=== PATIENT | male | born 1930 | race Caucasian/White ===

== ENCOUNTER → 2018-03-27 | Emergency (ER) | payer MEDICARE, BC ==
[~2018-03-27] VITALS: Ht 180.3 cm; Wt 71.2 kg
[~2018-03-27] MED LIST: ACETAMINOPHEN 500 MG TAB (TYLENOL) PO ONE; ASPI-999 PO; BETA15CR37 TP; DOXY100C2 PO; IRON1TAB4 PO; LEVO500T69 PO; NS IV 1000 ML 1,000 ML IV SCH; RT-ALBUTEROL/IPRATROPIUM 3 ML (DUONEB) VIAL INH ONE
--- OUTSIDE RECORDS SUMMARY | 2018-03-27 02:40 | XMS REPORT | Continuity of Care Document ---
Author Author [facility] Organization [facility] Address Unknown Phone Unavailable Allergies Active Description Code Type Severity Reaction Onset Reported/Identified Relationship to Patient Clinical Status Yes No Known Drug Allergies [id number] Drug Allergy Unknown N/A 07/30/2012 Medications There is no data. Problems Date Dx Coded Attending Type Code Diagnosis Diagnosed By 07/30/2012 MIKE HERNADEZ Ot 550.90 UNILAT INGUINAL HERNIA 07/30/2012 MIKE HERNADEZ Ot 780.4 DIZZINESS AND GIDDINESS 07/30/2012 MIKE HERNADEZ Ot 780.79 OTH MALAISE FATIGUE 07/30/2012 MIKE HERNADEZ Ot 919.4 INSECT BITE NEC 07/30/2012 MIKE HERNADEZ Ot E000.8 OTHER EXTERNAL CAUSE STATUS 07/30/2012 MIKE HERNADEZ Ot E906.4 NONVENOM ARTHROPOD BITE 08/04/2014 STEF PATEL, TAB Rosas Ot 496 08/04/2014 STEF PATEL, TAB [place] Ot 496 08/04/2014 STEF PATEL, TAB [place]as Ot 496 08/04/2014 STEF PATEL, TAB A Ot 496 08/20/2014 STEF PATEL, TAB A Ot 496 09/15/2014 STEF PATEL, TAB A Ot 496 09/15/2014 STEF PATEL, TAB Rosas Ot 496 12/11/2014 STEF PATEL, TAB [place]as Ot 496 06/17/2015 STEF PATEL, TAB Rosas Ot 496 CHR AIRWAY OBSTRUCT NEC 06/17/2015 THA REZA APRN Ot 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 Results Test Result Range Comprehensive Metabolic Panel - 03/01/18 10:00 Albumin 3.9 g/dL 3.6-5.1 ALP 133 U/L 35-130 ALT 9 U/L 6-45 Anion Gap 15 6-14 AST 16 U/L 2-40 BUN 16 mg/dL 5-25 Calcium 9.1 mg/dL 8.3-10.4 Chloride 104 mmol/L 95-114 CO2 23 mEq/L 22-33 Creat 0.93 mg/dL 0.50-1.50 eGFR 77 mL/min/1.73m2 >59 Globulin 3.1 g/dL 2.3-3.5 Glucose 194 mg/dL 70-110 Osmo 289 280-295 Potassium 4.6 mmol/L 3.5-5.3 Sodium 137 mmol/L 134-148 TBil 0.4 mg/dL 0.2-1.2 TP 7.0 g/dL 6.0-8.3 Encounters ACCT No. Visit Date/Time Discharge Status Pt. Type Provider Facility Loc./Unit Complaint [id number] 06/17/2015 13:40:00 06/17/2015 13:56:00 DIS Emergency THA REZA APRN [facility] ER [id number] 07/29/2014 14:31:00 07/29/2014 23:59:59 CLS Outpatient TAB FINCH MD [facility] RAD [id number] 07/30/2012 08:45:00 07/30/2012 11:52:00 DIS Emergency MIKE HERNADEZ [facility] ER [id number] 03/01/2018 10:46:00 03/01/2018 23:59:00 DIS Outpatient TAB FINCH [id number] 07/29/2014 14:32:23 ACT Document Registration
--- OUTSIDE RECORDS SUMMARY | 2018-03-27 02:40 | XMS REPORT | CCD ---
Author Author [facility] Organization [facility] Address [address] [place] [address] Phone Care Team Providers Care Hogshead Builder Name Role Phone PP Unavailable CCM Unavailable Summary Purpose Interface Exchange Insurance Providers Payer name Policy type / Coverage type Covered democrat ID Effective Begin Date Effective End Date WPS Medicare Part B Medicare Part B [id number] Unknown Unknown [facility] Medicare Part B [id number] Unknown Unknown Family history Mother Diagnosis Age At Onset No Family Disease Entered N/A Father Diagnosis Age At Onset No Family Disease Entered N/A Social History Social History Element Codes Description Effective Dates Marital status Unknown elvia 07/28/2014 Number of children Unknown 3 daughter - Jenniffer Hollingsworth - lives in [place], Sunni Lund - [place], Zay Black - lives in [place], [place] 07/28/2014 Employment Unknown Retired associate loan officer with [employer] - 07/28/[address]: 03911695 Current every day smoker 07/28/2014 Number of cigarettes/day Unknown 40 ([employer] Packs) 07/28/[address]: 775799954 Never drinks alcohol 07/28/2014 Allergies, Adverse Reactions, Alerts Substance Reaction Codes Entered Date Inactivated Date Status * NO KNOWN DRUG ALLERGIES Unknown 07/28/2014 No Inactive Date Active Past Medical History Illness Codes Condition Status Onset Date Resolved Date 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, bilateral legs ICD-9: 440.21 ICD-10: I70.213 Active 02/07/2018 Unknown Chronic obstructive pulmonary disease, unspecified ICD-9: 496 ICD-10: J44.9 Active 02/07/2018 Unknown Essential (primary) hypertension ICD-9: 401.1 ICD-10: I10 Active 02/07/2018 Unknown Localized edema ICD-9 : 782.3 ICD-10: R60.0 Active 02/07/2018 Unknown Other forms of dyspnea ICD-9: 786.09 ICD-10: R06.09 Active 02/07/2018 Unknown Type 2 diabetes mellitus with hyperglycemia ICD-9: 250.02 ICD-10: E11.65 Active 02/07/2018 Unknown Encounter for immunization ICD-9: V04.81 ICD-10: Z23 Active 11/17/2014 Unknown Encounter for immunization ICD-9: V03.82 ICD-10: Z23 Active 11/17/2014 Unknown COPD (chronic obstructive pulmonary disease) ICD-9: 496 Active 07/27/2014 Unknown DIZZINESS AND GIDDINESS ICD-9: 780.4 Active 07/27/2014 Unknown DM w/o complication type II, uncontrolled ICD-9: 250.02 Active 07/27/2014 Unknown Problems Condition Codes Effective Dates Condition Status 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, bilateral legs ICD-9: 440.21 ICD-10: I70.213 02/07/2018 Active Chronic obstructive pulmonary disease, unspecified ICD-9: 496 ICD-10: J44.9 02/07/2018 Active Essential (primary) hypertension ICD-9: 401.1 ICD-10: I10 02/07/2018 Active Localized edema ICD-9 : 782.3 ICD-10: R60.0 02/07/2018 Active Other forms of dyspnea ICD-9: 786.09 ICD-10: R06.09 02/07/2018 Active Type 2 diabetes mellitus with hyperglycemia ICD-9: 250.02 ICD-10: E11.65 02/07/2018 Active Encounter for immunization ICD-9: V04.81 ICD-10: Z23 11/17/2014 Active Encounter for immunization ICD-9: V03.82 ICD-10: Z23 11/17/2014 Active COPD (chronic obstructive pulmonary disease) ICD-9: 496 07/27/2014 Active DIZZINESS AND GIDDINESS ICD-9: 780.4 07/27/2014 Active DM w/o complication type II, uncontrolled ICD-9: 250.02 07/27/2014 Active Medications Medication Codes Instructions Start Date Stop Date Status Fill Instructions metformin 500 mg tablet RxNorm: 331638 1/2 Tablet(s) PO BID 12/201808/13/2018 Active metformin 500 mg tablet RxNorm: 743781 1/2 Tablet(s) PO BID 12/201802/14/2018 Inactive Multiple Vitamin oral RxNorm: 08311 oral No Start Date Active aspirin 81 mg tablet RxNorm: 360076 1 Tablet(s) PO daily No Start Date Active Centrum Silver Men oral RxNorm: 70361 oral No Start Date Active Medication Administered No Medication Administered data Immunizations Vaccine Codes Date Status Influenza CVX: 141 11/18/2014 completed Pneumococcal (Adult) CVX: 33 11/18/2014 completed Assessments Condition Codes Effective Dates Other forms of dyspnea ICD-10: R06.09 ICD-9: 786.09 02/07/2018 Chronic obstructive pulmonary disease, unspecified ICD-10: J44.9 ICD-9: 496 02/07/2018 Type 2 diabetes mellitus with hyperglycemia ICD-10: E11.65 ICD-9: 250.02 02/07/2018 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, bilateral legs ICD-10: I70.213 ICD-9: 440.21 02/07/2018 Essential (primary) hypertension ICD-10: I10 ICD-9: 401.1 02/07/2018 Localized edema ICD-10: R60.0 ICD-9: 782.3 02/07/2018 Encounter for immunization ICD-10: Z23 ICD-9: V03.82 11/18/2014 Encounter for immunization ICD-10: Z23 ICD-9: V04.81 11/18/2014 DM w/o complication type II, uncontrolled ICD-9: 250.02 07/28/2014 COPD (chronic obstructive pulmonary disease) ICD-9: 496 07/28/2014 DIZZINESS AND GIDDINESS ICD-9: 780.4 Reason For Visit Reason For Visit Effective Dates Notes cough 02/07/2018 vaccination against influenza 11/18/2014 diabetes mellitus 07/28/2014 Results Observation Observation Code Item Item Code Result Date Tsh Ord6 TSH (3rd IS) 4.06 uIU/mL 02/07/2018 Iron Ord72 Iron 21 ug/dl 02/07/2018 Comp Metabolic Ybr425 NA 135 mEq/L 02/07/2018 Comp Metabolic Nxs865 K 4.2 mEq/L 02/07/2018 Comp Metabolic Ygt352 CL 100 mEq/L 02/07/2018 Comp Metabolic Sth798 CO2 27.0 mEq/L 02/07/2018 Comp Metabolic Htv686 ANION GAP 12 02/07/2018 Comp Metabolic Awi071 GLUCOSE 184 mg/dL 02/07/2018 Comp Metabolic Dfp455 Creat 0.9 mg/dL 02/07/2018 Comp Metabolic Ooz026 eGFR 81 ml/min/1.73m2 02/07/2018 Comp Metabolic Waa676 BUN 24 mg/dL 02/07/2018 Comp Metabolic Xpw697 B/C Ratio 25.5 Ratio 02/07/2018 Comp Metabolic Jmt549 CALCIUM 9.1 mg/dL 02/07/2018 Comp Metabolic Wby839 ALK PHOS 125 U/L 02/07/2018 Comp Metabolic Mmy623 AST(SGOT) 15 U/L 02/07/2018 Comp Metabolic Vcd198 ALT(SGPT) 12 U/L 02/07/2018 Comp Metabolic Frp665 BILI T 0.7 mg/dL 02/07/2018 Comp Metabolic Crp818 ALBUMIN 3.9 g/dL 02/07/2018 Comp Metabolic Wbm619 TPRO 7.6 g/dL 02/07/2018 Comp Metabolic Adq419 GLOB 3.7 g/dL 02/07/2018 Comp Metabolic Obb600 A/G Ratio 1.0 Ratio 02/07/2018 Comp Metabolic Tew056 Osmo 279 mOsmo 02/07/2018 Total Psa Ord10 PSA 1.28 ng/mL 02/07/2018 %Hba1C Ykv651 % HbA1c 08707-1 9.1 % 02/07/2018 %Hba1C Mjd480 Gluc Ave 214 mg/dL 02/07/2018 Cbc With Differential Ord2 WBC 8.94 K/ul 02/07/2018 Cbc With Differential Ord2 RBC 4.03 M/ul 02/07/2018 Cbc With Differential Ord2 HGB 9.0 g/dl 02/07/2018 Cbc With Differential Ord2 HCT 29.9 % 02/07/2018 Cbc With Differential Ord2 Neut% 71.1 % 02/07/2018 Cbc With Differential Ord2 MCV 74.2 fl 02/07/2018 Cbc With Differential Ord2 Lymph% 16.7 % 02/07/2018 Cbc With Differential Ord2 MCH 22.3 pg 02/07/2018 Cbc With Differential Ord2 Yates% 9.1 % 02/07/2018 Cbc With Differential Ord2 MCHC 30.1 pg 02/07/2018 Cbc With Differential Ord2 Eos% 2.7 % 02/07/2018 Cbc With Differential Ord2 PLT 228 K/ul 02/07/2018 Cbc With Differential Ord2 Baso% 0.4 % 02/07/2018 Cbc With Differential Ord2 RDW 16.9 % 02/07/2018 Cbc With Differential Ord2 Neut ABS# 6.36 K/ul 02/07/2018 Cbc With Differential Ord2 Lymph ABS# 1.49 K/ul 02/07/2018 Cbc With Differential Ord2 Yates ABS# 0.8 K/ul 02/07/2018 Cbc With Differential Ord2 Eos ABS# 0.2 K/ul 02/07/2018 Cbc With Differential Ord2 Baso ABS# 0.0 K/ul 02/07/2018 Review of Systems System Result Effective Dates Constitutional No recent illness 2018 Constitutional No chills 02/07/2018 Constitutional fatigue 02/07/2018 Constitutional No fever 02/07/2018 Constitutional No insomnia 02/07/2018 Constitutional No malaise 02/07/2018 Eyes No blindness 02/07/2018 Eyes No vision change 02/07/2018 Ears/Nose/Throat/Neck No dental pain 04/2018 Ears/Nose/Throat/Neck No dizziness 2018 Ears/Nose/Throat/Neck No dysphagia 2018 Ears/Nose/Throat/Neck No headache 2018 Ears/Nose/Throat/Neck No hearing loss 04/2018 Ears/Nose/Throat/Neck No nasal allergies 02/07/2018 Ears/Nose/Throat/Neck No sore throat 04/2018 Ears/Nose/Throat/Neck No postnasal drip 02/07/2018 Ears/Nose/Throat/Neck No sinus congestion 02/07/2018 Cardiovascular No chest pain/pressure 04/2018 Cardiovascular No dyspnea 02/07/2018 Cardiovascular No edema 02/07/2018 Cardiovascular No exercise intolerance Cardiovascular No fatigue 02/07/2018 Cardiovascular No near-syncope/dizziness 02/07/2018 Respiratory No chest tightness 2018 Respiratory cigarette smoking 02/07/2018 Respiratory No cough 02/07/2018 Respiratory No dyspnea 02/07/2018 Respiratory No pedal edema 02/07/2018 Gastrointestinal No abdominal pain 2018 Gastrointestinal No constipation 2018 Gastrointestinal No diarrhea 02/07/2018 Gastrointestinal No gastroesophageal reflux 02/07/2018 Gastrointestinal No nausea 02/07/2018 Gastrointestinal No vomiting 02/07/2018 Genitourinary/Nephrology No dysuria 02/07 Genitourinary/Nephrology No nocturia 04/2018 Genitourinary/Nephrology No urinary incontinence 02/07/2018 Musculoskeletal No stiffness 02/07/2018 Musculoskeletal No swelling 02/07/2018 Musculoskeletal muscle weakness 2018 Musculoskeletal No myalgias 02/07/2018 Dermatologic No rash 02/07/2018 Neurologic dizziness 02/07/2018 Neurologic No headache 02/07/2018 Neurologic No neck pain 02/07/2018 Neurologic No syncope 02/07/2018 Psychiatric No anxiety 02/07/2018 Psychiatric No depression 02/07/2018 Endocrine diabetes mellitus type 2 2018 Dermatologic sores 02/07/2018 Cardiovascular No dyspnea 07/28/2014 Cardiovascular No edema 07/28/2014 Cardiovascular No fatigue 07/28/2014 Respiratory cigarette smoking 07/28/2014 Neurologic dizziness 07/28/2014 Constitutional No recent illness 2014 Constitutional No chills 07/28/2014 Constitutional fatigue 07/28/2014 Constitutional No fever 07/28/2014 Constitutional No insomnia 07/28/2014 Constitutional No malaise 07/28/2014 Eyes No blindness 07/28/2014 Eyes No vision change 07/28/2014 Ears/Nose/Throat/Neck No dental pain Ears/Nose/Throat/Neck No dizziness 2014 Ears/Nose/Throat/Neck No dysphagia 2014 Ears/Nose/Throat/Neck No headache 2014 Ears/Nose/Throat/Neck No hearing loss Ears/Nose/Throat/Neck No nasal allergies 07/28/2014 Ears/Nose/Throat/Neck No sore throat Ears/Nose/Throat/Neck No postnasal drip 07/28/2014 Ears/Nose/Throat/Neck No sinus congestion 07/28/2014 Cardiovascular No chest pain/pressure Cardiovascular No exercise intolerance Cardiovascular No near-syncope/dizziness 07/28/2014 Respiratory No chest tightness 2014 Respiratory No cough 07/28/2014 Respiratory No dyspnea 07/28/2014 Respiratory No pedal edema 07/28/2014 Gastrointestinal No abdominal pain 2014 Gastrointestinal No constipation 2014 Gastrointestinal No diarrhea 07/28/2014 Gastrointestinal No gastroesophageal reflux 07/28/2014 Gastrointestinal No nausea 07/28/2014 Gastrointestinal No vomiting 07/28/2014 Genitourinary/Nephrology No dysuria 07/28 Genitourinary/Nephrology No nocturia Genitourinary/Nephrology No urinary incontinence 07/28/2014 Musculoskeletal No stiffness 07/28/2014 Musculoskeletal No swelling 07/28/2014 Musculoskeletal No muscle weakness 2014 Musculoskeletal No myalgias 07/28/2014 Dermatologic No rash 07/28/2014 Dermatologic No sores 07/28/2014 Dermatologic No scar 07/28/2014 Neurologic No headache 07/28/2014 Neurologic No neck pain 07/28/2014 Neurologic No syncope 07/28/2014 Psychiatric No anxiety 07/28/2014 Psychiatric No depression 07/28/2014 Endocrine diabetes mellitus type 2 2014 Physical Exam Exam Name System Name Item Name Status Result Effective Dates Notes Full Exam - General 1994 Constitutional general appearance Development: well developed 02/07/2018 None Full Exam - General 1994 Constitutional general appearance Development: appears stated age 0102/07/2018 None Full Exam - General 1994 Constitutional general appearance Hygiene/Attention to Grooming: good hygiene 02/07/2018 None Full Exam - General 1994 Eyes conjunctiva /eyelids Overall: cornea clear 02/07/2018 None Full Exam - General 1994 Eyes conjunctiva /eyelids Overall: eyelids normal 02/07/2018 None Full Exam - General 1994 Eyes pupils and irises Overall: pupils equal, round, reactive to light and accomodation 02/07/2018 None Full Exam - General 1994 Ears/Nose/Throat otoscopic exam Overall: external auditory canals clear 02/07/2018 None Full Exam - General 1994 Ears/Nose/Throat otoscopic exam Overall: tympanic membranes clear 02/07/2018 None Full Exam - General 1994 Ears/Nose/Throat lips/teeth/gingiva Overall: benign lips 02/07/2018 None Full Exam - General 1994 Ears/Nose/Throat lips/teeth/gingiva Overall: normal dentition 02/07/2018 None Full Exam - General 1994 Ears/Nose/Throat oral cavity/pharynx/larynx Overall: oral mucosa clear 02/07/2018 None Full Exam - General 1994 Ears/Nose/Throat oral cavity/pharynx/larynx Overall: oropharyngeal mucosa clear 02/07/2018 None Full Exam - General 1994 Ears/Nose/Throat oral cavity/pharynx/larynx Overall: hypopharynx benign 02/07/2018 None Full Exam - General 1994 Ears/Nose/Throat oral cavity/pharynx/larynx Overall: no masses 02/07/2018 None Full Exam - General 1994 Respiratory auscultation Overall: breath sounds clear bilaterally 02/07/2018 None Full Exam - General 1994 Respiratory respiratory effort/rhythm Overall: no retractions 02/07/2018 None Full Exam - General 1994 Respiratory respiratory effort/rhythm Overall: normal rate 02/07/2018 None Full Exam - General 1994 Cardiovascular extremities Overall: no clubbing 02/07/2018 None Full Exam - General 1994 Cardiovascular auscultation of heart Overall: regular rate 02/07/2018 None Full Exam - General 1994 Cardiovascular auscultation of heart Overall: normal heart sounds 02/07/2018 None Full Exam - General 1994 Abdomen abdominal exam Overall: no tenderness 02/07/2018 None Full Exam - General 1994 Abdomen abdominal exam Overall: normal bowel sounds 02/07/2018 None Full Exam - General 1994 Lymphatic neck nodes Overall: anterior cervical chain benign 02/07/2018 None Full Exam - General 1994 Lymphatic neck nodes Overall: posterior cervical chain benign 02/07/2018 None Full Exam - General 1994 Musculoskeletal spine, ribs and pelvis Overall: spine benign 02/07/2018 None Full Exam - General 1994 Musculoskeletal spine, ribs and pelvis Overall: sacroiliac joint benign 02/07/2018 None Full Exam - General 1994 Musculoskeletal spine, ribs and pelvis Overall: good posture 02/07/2018 None Full Exam - General 1994 Musculoskeletal head and neck Overall: head atraumatic 02/07/2018 None Full Exam - General 1994 Musculoskeletal head and neck Overall: cervical spine benign 02/07/2018 None Full Exam - General 1994 Neurologic deep tendon reflexes Overall: deep tendon reflexes intact 02/07/2018 None Full Exam - General 1994 Neurologic cranial nerves Overall: crainial nerves 2 - 12 grossly intact 02/07/2018 None Full Exam - General 1994 Psychiatric orientation/consciousness Overall: oriented to person, place and time 02/07/2018 None Full Exam - General 1994 Psychiatric mood and affect Overall: normal mood and affect 02/07/2018 None Full Exam - General 1994 Integument inspection of skin Location: face 02/07/2018 left cheek irritation Full Exam - General 1994 Eyes conjunctiva /eyelids Conjunctiva: pale 02/07/2018 None Full Exam - General 1994 Constitutional general appearance Development: well developed 07/28/2014 None Full Exam - General 1994 Constitutional general appearance Development: appears stated age 0607/28/2014 None Full Exam - General 1994 Constitutional general appearance Hygiene/Attention to Grooming: good hygiene 07/28/2014 None Full Exam - General 1994 Eyes conjunctiva /eyelids Overall: conjunctiva clear 07/28/2014 None Full Exam - General 1994 Eyes conjunctiva /eyelids Overall: cornea clear 07/28/2014 None Full Exam - General 1994 Eyes conjunctiva /eyelids Overall: eyelids normal 07/28/2014 None Full Exam - General 1994 Eyes pupils and irises Overall: pupils equal, round, reactive to light and accomodation 07/28/2014 None Full Exam - General 1994 Ears/Nose/Throat otoscopic exam Overall: external auditory canals clear 07/28/2014 None Full Exam - General 1994 Ears/Nose/Throat otoscopic exam Overall: tympanic membranes clear 07/28/2014 None Full Exam - General 1994 Ears/Nose/Throat lips/teeth/gingiva Overall: benign lips 07/28/2014 None Full Exam - General 1994 Ears/Nose/Throat lips/teeth/gingiva Overall: normal dentition 07/28/2014 None Full Exam - General 1994 Ears/Nose/Throat oral cavity/pharynx/larynx Overall: oral mucosa clear 07/28/2014 None Full Exam - General 1994 Ears/Nose/Throat oral cavity/pharynx/larynx Overall: oropharyngeal mucosa clear 07/28/2014 None Full Exam - General 1994 Ears/Nose/Throat oral cavity/pharynx/larynx Overall: hypopharynx benign 07/28/2014 None Full Exam - General 1994 Ears/Nose/Throat oral cavity/pharynx/larynx Overall: no masses 07/28/2014 None Full Exam - General 1994 Respiratory auscultation Overall: breath sounds clear bilaterally 07/28/2014 None Full Exam - General 1994 Respiratory respiratory effort/rhythm Overall: no retractions 07/28/2014 None Full Exam - General 1994 Respiratory respiratory effort/rhythm Overall: normal rate 07/28/2014 None Full Exam - General 1994 Cardiovascular extremities Overall: no clubbing 07/28/2014 None Full Exam - General 1994 Cardiovascular auscultation of heart Overall: regular rate 07/28/2014 None Full Exam - General 1994 Cardiovascular auscultation of heart Overall: normal heart sounds 07/28/2014 None Full Exam - General 1994 Abdomen abdominal exam Overall: no tenderness 07/28/2014 None Full Exam - General 1994 Abdomen abdominal exam Overall: normal bowel sounds 07/28/2014 None Full Exam - General 1994 Lymphatic neck nodes Overall: anterior cervical chain benign 07/28/2014 None Full Exam - General 1994 Lymphatic neck nodes Overall: posterior cervical chain benign 07/28/2014 None Full Exam - General 1994 Musculoskeletal spine, ribs and pelvis Overall: spine benign 07/28/2014 None Full Exam - General 1994 Musculoskeletal spine, ribs and pelvis Overall: sacroiliac joint benign 07/28/2014 None Full Exam - General 1994 Musculoskeletal spine, ribs and pelvis Overall: good posture 07/28/2014 None Full Exam - General 1994 Musculoskeletal head and neck Overall: head atraumatic 07/28/2014 None Full Exam - General 1994 Musculoskeletal head and neck Overall: cervical spine benign 07/28/2014 None Full Exam - General 1994 Integument inspection of skin Overall: few scattered moles, no gross abnormalities 07/28/2014 None Full Exam - General 1994 Neurologic deep tendon reflexes Overall: deep tendon reflexes intact 07/28/2014 None Full Exam - General 1994 Neurologic cranial nerves Overall: crainial nerves 2 - 12 grossly intact 07/28/2014 None Full Exam - General 1994 Psychiatric orientation/consciousness Overall: oriented to person, place and time 07/28/2014 None Full Exam - General 1994 Psychiatric mood and affect Overall: normal mood and affect 07/28/2014 None Procedures Procedure Codes Date ADMIN INFLUENZA VIRUS VAC CPT-4: G0008 11/18/2014 FLU VACC 4 MARTELL 3 YRS PLUS IM Formatting Model/CDA Sections, Assigned to SNOMED CT: 27445245 CPT-4: 79674Zyiyvbb 11/18/2014 ADMIN PNEUMOCOCCAL VACCINE SNOMED CT: 41655147 CPT-4: G0009 11/18/2014 Pneumococcal Polysaccharide Vaccine, 23-Valent, Ad Formatting Model/CDA Sections, Assigned to CPT-4: 50322Pznbmtk 11/18/2014 Vital Signs Date Vital 02/07/2018 Blood Pressure 1: 150/80 Code : 8480-6 Blood Pressure 2: 128/84 Code: 8480-6 BMI: 21.8 Code: 00582-0 Heart Rate 1: 81 bpm Height: 6' SpO2: 90% Weight: 161 lbs 07/28/2014 Blood Pressure 1: 136/78 Code : 8480-6 BMI: 21.0 Code : 13473-2 Heart Rate 1 : 72 bpm Height: 6' Weight: 155 lbs Functional Status No Functional Status data History of Present Illness Symptom Name Status Result Effective Date Notes Quality intermittent 02/07/2018 None Location in the throat 02/07/2018 None Limitation on Activities does not limit activities 02/07/2018 None Frequency of Episodes daily 02/07/2018 None Pertinent Findings Denies chest discomfort 02/07/2018 None Pertinent Findings Denies fever 02/07/2018 None Quality intermittent 02/07/2018 None Onset and Resolution ongoing 02/07/2018 None Pertinent Findings Denies muscle tenderness 02/07/2018 None Quality bilateral 04/2018 legs Onset and Resolution ongoing 02/07/2018 None Pertinent Findings bladder dysfunction 02/07/2018 None Pertinent Findings gait abnormality 02/07/2018 uses a cane Pertinent Findings Denies respiratory difficulties 02/07/2018 None Pertinent Findings skin changes 02/07/2018 sores to bilateral upper arms he reports from tick bites diabetes mellitus Severity mild 07/28/2014 None diabetes mellitus Test results HgbA1c level 7.7 07/28/2014 on 05/11/14 diabetes mellitus Glucose monitoring does not test 07/28/2014 None diabetes mellitus Exercise minimal exercise 07/28/2014 patient states he walks and works around his [place] diabetes mellitus Pertinent Findings dizziness 07/28/2014 None dizziness Onset and Resolution ongoing 07/28/2014 None dizziness Onset of Symptom 2 years ago 07/28/2014 None dizziness Quality intermittent 07/28/2014 None dizziness Limitation on Activities does not limit activities 07/28/2014 None fatigue Onset of Symptom 2 years ago 07/28/2014 None fatigue Onset and Resolution ongoing 07/28/2014 None diabetes mellitus Pertinent Findings Denies dyspnea 07/28/2014 None diabetes mellitus Onset of Symptom onset as an adult 07/28/2014 None Advance Directives No Advance Directive data Encounters Encounter Performer Location Codes Date [id number]) [id number] EST. 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 Pt has been encouraged to exercise daily. The pt has been advised to call the office if there are any acute concerns about change in blood pressure readings at home. Diabetes Mellitus - not optimally controlled - discussed with patient - will check labs. Generalized weakness and gait instability - check labs as well as start therapy through [facility] (powering [facility]). Edema - elevate legs while seated. Dyspnea on exertion -and COPD- monitored pt - he has drop in oxygen down to 72% - with short ambulation - rx for oxgyen sent to [facility]. PVD - continue with aspirin. 02/07/2018 [facility]ment[id number] ([facility] min[facility] Moderate 02/07/2018 Patient Education: Patient Medication Summary Completed 02/07/2018 Patient Education: Diabetes Completed 02/07/2018 Appointment: Nurse Visit 11/18/2014 Patient Education: Patient Medication Summary Completed 11/18/2014 Visit Plan: Diabetes Mellitus - diet controlled - per patient reports. I have recommended for the patient to have follow up labs prior to the next office visit. The patient has been instructed to continue with current medications as previously directed, continue with regular FSBS monitoring to assure continued control of diabetes. Pt to call for any acute concerns, complaints, or if the blood glucose readings are starting to become less controlled. COPD - chronic problem for this patient. We have reviewed chronic treatment strategy, symptom control, and plans for acute exacerbation. No changes today to the current treatment plan as the patient is stable, monitor for acute changes. 07/28/2014 Appointment: [phone] [facility] [place] [place] New Patient 07/28/2014 Patient Education: Patient Medication Summary Completed 07/28/2014 Care Plan: COMPLETE CBC AUTOMATED LOINC : 40678-6 Ordered 07/28/2014 Instructions Comment . Hypertension - well controlled - continue with current medications, continue with no added salt diet. Pt has been encouraged to exercise daily. The pt has been advised to call the office if there are any acute concerns about change in blood pressure readings at home. Diabetes Mellitus - not optimally controlled - discussed with patient - will check labs. Generalized weakness and gait instability - check labs as well as start therapy through [facility] (powering [facility]). Edema - elevate legs while seated. Dyspnea on exertion -and COPD- monitored pt - he has drop in oxygen down to 72 % - with short ambulation - rx for oxgyen sent to [facility]. PVD - continue with aspirin. . Diabetes Mellitus - diet controlled - per patient reports. I have recommended for the patient to have follow up labs prior to the next office visit. The patient has been instructed to continue with current medications as previously directed, continue with regular FSBS monitoring to assure continued control of diabetes. Pt to call for any acute concerns, complaints, or if the blood glucose readings are starting to become less controlled. COPD - chronic problem for this patient. We have reviewed chronic treatment strategy, symptom control, and plans for acute exacerbation. No changes today to the current treatment plan as the patient is stable, monitor for acute changes.
[2018-03-27 03:00] LABS: BASOPHILS % (AUTO) 0 % (0-10); EOSINOPHILS % (AUTO) 0 % (0-10); HEMATOCRIT 34 % (40-54); HEMOGLOBIN 10.7 G/DL (13.3-17.7); LYMPHOCYTES # (AUTO) 0.9 X 10^3 (1.0-4.0); LYMPHOCYTES % (AUTO) 13 % (12-44); MEAN CORPUSCULAR HEMOGLOBIN 23 PG (25-34); MEAN CORPUSCULAR HGB CONC 32 G/DL (32-36); MEAN CORPUSCULAR VOLUME 74 FL (80-99); MEAN PLATELET VOLUME 10.6 FL (7.4-10.4); MONOCYTES # (AUTO) 0.7 X 10^3 (0.0-1.0); MONOCYTES % (AUTO) 11 % (0-12); NEUTROPHILS # (AUTO) 5.2 X 10^3 (1.8-7.8); NEUTROPHILS % (AUTO) 76 % (42-75); PLATELET COUNT 172 10^3/uL (130-400); RED CELL DISTRIBUTION WIDTH 21.6 % (10.0-14.5); WHITE BLOOD COUNT 6.8 10^3/uL (4.3-11.0)
[2018-03-27 03:05] LABS: INR 1.2 (0.8-1.4); PROTHROMBIN TIME PATIENT 15.2 SEC (12.2-14.7)
[2018-03-27 03:11] LABS: ALANINE AMINOTRANSFERASE 13 U/L (0-55); ALKALINE PHOSPHATASE 125 U/L (40-136); BUN/CREATININE RATIO 26; CALCIUM 9.5 MG/DL (8.5-10.1); CARBON DIOXIDE 18 MMOL/L (21-32); CHLORIDE 102 MMOL/L (98-107); CREATININE SERUM 1.08 MG/DL (0.60-1.30); GFR ESTIMATED > 60; GLUCOSE 244 MG/DL (70-105); POTASSIUM 4.2 MMOL/L (3.6-5.0); SODIUM 134 MMOL/L (135-145); TOTAL PROTEIN 7.8 GM/DL (6.4-8.2)
--- NOTE | 2018-03-27 05:02 | ED General ---
General Chief Complaint: Respiratory Problems Stated Complaint: FALL Nursing Triage Note: PT REPORTS TRYING TO GET OUT OF HIS CHAIR AT HOME AND HIS LEGS WOULD NOT SUPPORT HIS WEIGHT, STATES HE SLUMPED TO THE CARPETED FLOOR, DEN IES STRIKING HIS HEAD, DENIES LOC. PT REPORTS CHILLS THAT BEGAN YESTERDAY AND INCREASED SLEEPINESS ALL DAY TODAY Nursing Sepsis Screen: Possible Severe Sepsis Risk Source of Information: Patient, EMS, Family Exam Limitations: No Limitations History of Present Illness Date Seen by Provider: Mar 27, 2018 Time Seen by Provider: 02:36 Initial Comments This 87-year-old gentleman presents to the emergency room via EMS after having a fall at home. Patient was unable to get up out of his chair and lowered himself to the floor. He laid on the floor for about an hour and a half before he was able to contact family. Patient reports he started feeling ill with excessive tiredness about 5 days ago. He is febrile on arrival, hypoxic, and tachycardic. Oxygen saturation is 83 percent on room air. He is dyspneic and has a wet cough. Patient occasionally uses oxygen at 2 L by nasal cannula, mostly at night. Patient denies any injury from his fall. He reports a general decline in his functionality over the last few months resulting in decrease in quality of life. He also notes his about 3 years ago. Patient expresses a desire for DNR status and is not sure he wants aggressive care for treatment of his present condition. I discussed the situation with his daughter and son-in-law. They agree that his quality of life has been diminishing recently. Patient does have some pain toward the center of his back that is ill-defined and hard to localize. Allergies and Home Medications Allergies Coded Allergies: No Known Drug Allergies (Unverified , 07/30/12) Home Medications Betamethasone/Propylene Glyc 15 Gm Cream..g., 1 GM TP BID Apply topically to forearms twice daily for 5 days Prescribed by: THA REZA on 06/17/15 0598 Patient Home Medication List Home Medication List Reviewed: Yes Review of Systems Review of Systems Constitutional: see HPI EENTM: no symptoms reported Respiratory: see HPI Cardiovascular: see HPI Gastrointestinal: other (large abdominal hernia) Genitourinary: no symptoms reported Musculoskeletal: no symptoms reported Skin: no symptoms reported Psychiatric/Neurological: No Symptoms Reported Hematologic/Lymphatic: No Symptoms Reported Immunological/Allergic: no symptoms reported Past Vjptdcx-Tndibs-Yibntf Hx Past Med/Social Hx: Reviewed and Corrections made Patient Social History Recent Foreign Travel: No Contact w/Someone Who Travel: No Recent Infectious Disease Expo: No Seasonal Allergies Seasonal Allergies: No Past Medical History Surgeries: Yes (left ankle surgery) Respiratory: Yes (nocturnal hypoxia) Cardiac: No Neurological: No Genitourinary: No Gastrointestinal: Yes (lg hernia in the scotum, states never bothered him, increases with lifting) Musculoskeletal: No Endocrine: No HEENT: No Cancer: No Psychosocial: No Integumentary: No Family Medical History No Pertinent Family Hx Physical Exam-Suspected Sepsis Physical Exam Vital Signs Vital Signs - First Documented 03/27/18 03/27/18 02:35 02:45 Temp 101.3 Pulse 112 Resp 22 B/P (MAP) 135/78 (97) Pulse Ox 83 O2 Delivery Room Air O2 Flow Rate 10.00 Capillary Refill : Less Than 3 Seconds Blood Pressure Mean: 87 Height, Weight, BMI Height: 5'11.00" Weight: 157lbs. oz. 71.873585kx; BMI Method:Stated General Appearance: WD/WN, Mild Distress (respiratory) HEENT: PERRL/EOMI, Normal ENT Inspection Neck: Normal Inspection Respiratory: No Accessory Muscle Use, No Respiratory Distress, Crackles ( subtle lung bases), Decreased Breath Sounds, Other (tachypnea) Cardiovascular: No Edema, No Murmur, Tachycardia Gastrointestinal: Normal Bowel Sounds, Soft, Other (large lower abdominal and scrotal hernia, nontender.) Back: Normal Inspection Extremity: Normal Inspection, Pedal Edema (mild pitting lower extremity edema) Neurologic/Psychiatric: Alert, Oriented x3, No Motor/Sensory Deficits, Normal Mood/Affect, health claims examiner II-XII Norm as Tested Skin: normal color, warm/dry Focused Exam Lactate Level 03/27/18 02:40: Lactic Acid Level 2.62*H Lactic Acid Level Laboratory Tests Test 03/27/18 02:40 Lactic Acid Level 2.62 MMOL/L (0.50-2.00) *H Progress/Results/Core Measures Suspected Sepsis Recent Fever Within 48 Hours: Yes Infection Criteria Present: Suspected New Infection New/Unexplained Altered Menta: No Sepsis Screen: Possible Severe Sepsis Risk SIRS Temperature:100.3 Pulse: 111 Respiratory Rate: 22 Laboratory Tests 03/27/18 02:40: White Blood Count 6.8 Blood Pressure 126 /68 Mean: 87 03/27/18 02:40: Lactic Acid Level 2.62*H Laboratory Tests 03/27/18 02:40: Creatinine 1.08, INR Comment 1.2, Platelet Count 172, Total Bilirubin 1.0 Results/Orders Lab Results Laboratory Tests Test 03/27/18 02:40 Range/Units White Blood Count 6.8 4.3-11.0 10^3/uL Red Blood Count 4.57 4.35-5.85 10^6/uL Hemoglobin 10.7 L 13.3-17.7 G/DL Hematocrit 34 L 40-54 % Mean Corpuscular Volume 74 L 80-99 FL Mean Corpuscular Hemoglobin 23 L 25-34 PG Mean Corpuscular Hemoglobin Concent 32 32-36 G/DL Red Cell Distribution Width 21.6 H 10.0-14.5 % Platelet Count 172 130-400 10^3/uL Mean Platelet Volume 10.6 H 7.4-10.4 FL Neutrophils (%) (Auto) 76 H 42-75 % Lymphocytes (%) (Auto) 13 12-44 % Monocytes (%) (Auto) 11 0-12 % Eosinophils (%) (Auto) 0 0-10 % Basophils (%) (Auto) 0 0-10 % Neutrophils # (Auto) 5.2 1.8-7.8 X 10^3 Lymphocytes # (Auto) 0.9 L 1.0-4.0 X 10^3 Monocytes # (Auto) 0.7 0.0-1.0 X 10^3 Eosinophils # (Auto) 0.0 0.0-0.3 10^3/uL Basophils # (Auto) 0.0 0.0-0.1 10^3/uL Prothrombin Time 15.2 H 12.2-14.7 SEC INR Comment 1.2 0.8-1.4 Activated Partial Thromboplast Time 33 24-35 SEC D-Dimer 2.93 H 0.00-0.49 UG/ML Sodium Level 134 L 135-145 MMOL/L Potassium Level 4.2 3.6-5.0 MMOL/L Chloride Level 102 98-107 MMOL/L Carbon Dioxide Level 18 L 21-32 MMOL/L Anion Gap 14 5-14 MMOL/L Blood Urea Nitrogen 28 H 7-18 MG/DL Creatinine 1.08 0.60-1.30 MG/DL Estimat Glomerular Filtration Rate > 60 BUN/Creatinine Ratio 26 Glucose Level 244 H 70-105 MG/DL Lactic Acid Level 2.62 *H 0.50-2.00 MMOL/L Calcium Level 9.5 8.5-10.1 MG/DL Corrected Calcium 9.5 8.5-10.1 MG/DL Total Bilirubin 1.0 0.1-1.0 MG/DL Aspartate Amino Transf (AST/SGOT) 20 5-34 U/L Alanine Aminotransferase (ALT/SGPT) 13 0-55 U/L Alkaline Phosphatase 125 40-136 U/L Troponin I < 0.028 <0.028 NG/ML C-Reactive Protein High Sensitivity 14.64 H 0.00-0.50 MG/DL B-Type Natriuretic Peptide 133.1 H <100.0 PG/ML Total Protein 7.8 6.4-8.2 GM/DL Albumin 4.0 3.2-4.5 GM/DL Micro Results Microbiology 03/27/18 Influenza Types A,B Antigen (QUENTIN) - Final, Complete My Orders Orders - LINH MILLER MD Cbc With Automated Diff (03/27/18 02:52) Comprehensive Metabolic Panel (03/27/18 02:52) Blood Culture (03/27/18 02:52) Sputum Culture (03/27/18 02:52) Urinalysis (03/27/18 02:52) Urine Culture (03/27/18 02:52) Protime With Inr (03/27/18 02:52) Partial Thromboplastin Time (03/27/18 02:52) Chest 1 View, Ap/Pa Only (03/27/18 02:52) Saline Lock/Iv-Start (03/27/18 02:52) Saline Lock/Iv-Start (03/27/18 02:52) Vital Signs Adult Sepsis Patie Q15M (03/27/18 02:52) O2 (03/27/18 02:52) Remove Rings In Anticipation O (03/27/18 02:52) Lactic Acid Analyzer (03/27/18 02:52) Influenza A And B Antigens (03/27/18 02:52) Ns Iv 1000 Ml (Sodium Chloride 0.9%) (03/27/18 02:52) Albuterol/Ipra Inhalation Soln (Duoneb I (03/27/18 03:00) Svn Small Volume Nebulizer (03/27/18 02:52) Acetaminophen Tablet (Tylenol Tablet) (03/27/18 03:00) BNP (03/27/18 02:57) Hs C Reactive Protein (03/27/18 03:39) Fibrin Degradation Products (03/27/18 03:39) Troponin I (03/27/18 03:39) Medications Given in ED Current Medications Medications Dose Ordered Sig/Rachel Route Start Time Stop Time Status Last Admin Dose Admin Acetaminophen 1,000 mg ONCE ONCE PO 03/27/18 03:00 03/27/18 03:01 DC 03/27/18 03:10 1,000 MG Albuterol/ Ipratropium 3 ml ONCE ONCE INH 03/27/18 03:00 03/27/18 03:01 DC 03/27/18 02:49 3 ML Vital Signs/I&O 03/27/18 03/27/18 03/27/18 03/27/18 02:35 02:45 02:49 03:10 Temp 101.3 101.3 Pulse 112 Resp 22 B/P (MAP) 135/78 (97) Pulse Ox 83 95 91 O2 Delivery Room Air OxyMask OxyMask O2 Flow Rate 10.00 10.00 03/27/18 03:37 Temp 100.3 Pulse 111 Resp 22 B/P (MAP) 126/68 Pulse Ox 95 O2 Delivery OxyMask O2 Flow Rate 10.00 Capillary Refill : Less Than 3 Seconds Blood Pressure Mean: 87 Progress Note : Progress Note Patient was placed on an Oxymask at 10 L/m which successfully resuscitated his oxygen saturation to the mid 90s. Pneumonia was suspected on chest x-ray. Influenza screen was negative. Patient received a DuoNeb treatment in route and another DuoNeb treatment in the ER. He remained slightly dyspneic. A liter of IV fluids was infused. Patient expressed no interest in aggressively treating his pneumonia or respiratory failure. He did not want to be transferred to a higher level of care either. Options were discussed with the patient and his family. Because of his age and overall declining condition, he elected to pursue comfort care. 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 [facility] was on admission diversion at the time of admission. Arrangements were made with Dr. Chase to transfer to [place] for comfort care. Hospice at home was considered, but family support would be difficult to arrange in the home. Comfort care in the hospital was therefore preferred. Patient received Tylenol for his fever. No antibiotics were administered due to patient's election for comfort care only. Diagnostic Imaging Diagonstic Imaging: Xray Plain Films/CT/US/NM/MRI: chest Comments Chest x-ray viewed by me. Report not yet available. There is suggestion of perihilar right lower lobe infiltrate and left lower lobe infiltrate. Departure Impression Primary Impression: Respiratory failure Qualified Codes: J96.21 - Acute and chronic respiratory failure with hypoxia Additional Impressions: Right lower lobe pneumonia Qualified Codes: J18.1 - Lobar pneumonia, unspecified organism Sepsis Qualified Codes: A41.9 - Sepsis, unspecified organism Disposition: 01 HOME, SELF-CARE Condition: Improved Transfer Time Spoke to Accepting Phy: 04:30 Transfer Progress Notes Case discussed with Dr. Chase who accepts the patient in transfer to [facility] on comfort care. Transfer Time: 05:40 Transfer Facility: [facility] Method of Transfer: EMS Departure-Patient Inst. Referrals: TAB FINCH MD (PCP/Family) Primary Care Physician LINH MILLER MD Mar 27, 2018 05:02
[2018-03-27 05:58] VITALS: BP 106/72
--- NOTE | 2018-03-27 06:21 | Diagnostic Imaging Report ---
INDICATION: Cough and congestion COMPARISON: 07/29/2014 FINDINGS: Single view of the chest demonstrates new infiltrates in both lung bases with small effusion left costophrenic angle. The heart is prominent without pulmonary edema. There is no pneumothorax. The osseous structures normal. IMPRESSION: New basilar infiltrates with small effusion left base. Followup recommended. Dictated by: Dictated on workstation # [id number]
== END | disposition home or self-care (01) ==
LOC: EDUNIT# 02:35 → ER 02:36
DX: J96.90 Respiratory failure, unspecified, unspecified whether with hypoxia or hypercapnia (principal); J18.1 Lobar pneumonia, unspecified organism; A41.9 Sepsis, unspecified organism; Z99.81 Dependence on supplemental oxygen; Z79.51 Long term (current) use of inhaled steroids; Z87.19 Personal history of other diseases of the digestive system
CPT/HCPCS: 36415; 71045; 80053; 83605; 83880; 84484; 85025; 85379; 85610; 85730; 86141; 87040; 87804; 94640

== ENCOUNTER 2020-01-03 07:46 | Inpatient (IN) | payer MEDICARE, BC ==
[~2020-01-03] VITALS: Ht 182.1 cm; Wt 70.4 kg
[~2020-01-03 07:46] MED LIST changes: -ACETAMINOPHEN 500 MG TAB (TYLENOL) PO ONE; +BETA15CR14 TP; -BETA15CR37 TP; -NS IV 1000 ML 1,000 ML IV SCH; -RT-ALBUTEROL/IPRATROPIUM 3 ML (DUONEB) VIAL INH ONE
[2020-01-03] MEDS ORDERED: ACETAMINOPHEN 500 MG TAB (TYLENOL) PO PRN (08:15)
[2020-01-03 08:26] LABS: BASOPHILS # (AUTO) 0.1 10^3/uL (0.0-0.1); BASOPHILS % (AUTO) 1 % (0-10); MEAN CORPUSCULAR HEMOGLOBIN 30 pg (25-34)
[2020-01-03 08:28] LABS: EOSINOPHILS # (AUTO) 0.1 10^3/uL (0.0-0.3); EOSINOPHILS % (AUTO) 1 % (0-10); HEMATOCRIT 40 % (40-54); LYMPHOCYTES # (AUTO) 0.7 10^3/uL (1.0-4.0); LYMPHOCYTES % (AUTO) 10 % (12-44); MEAN CORPUSCULAR HGB CONC 33 g/dL (32-36); MEAN CORPUSCULAR VOLUME 94 fL (80-99); MEAN PLATELET VOLUME 10.3 fL (9.0-12.2); MONOCYTES # (AUTO) 0.6 10^3/uL (0.0-1.0); MONOCYTES % (AUTO) 10 % (0-12); NEUTROPHILS # (AUTO) 4.9 10^3/uL (1.8-7.8); NEUTROPHILS % (AUTO) 77 % (42-75); PLATELET COUNT 130 10^3/uL (130-400); WHITE BLOOD COUNT 6.3 10^3/uL (4.3-11.0)
[2020-01-03 08:38] LABS: BILIRUBIN,URINE NEGATIVE (NEGATIVE); CLARITY,URINE CLEAR; COLOR,URINE YELLOW; GLUCOSE, URINE (UA) TRACE (NEGATIVE); KETONES,URINE NEGATIVE (NEGATIVE); LEUKOCYTE ESTERASE ,URINE NEGATIVE (NEGATIVE); NITRITE,URINE NEGATIVE (NEGATIVE); PROTEIN,URINE NEGATIVE (NEGATIVE)
[2020-01-03 08:38] LABS: ALBUMIN 3.7 GM/DL (3.2-4.5); CHLORIDE 101 MMOL/L (98-107); POTASSIUM 4.2 MMOL/L (3.6-5.0); SODIUM 134 MMOL/L (135-145)
[2020-01-03 08:39] LABS: CALCIUM 8.8 MG/DL (8.5-10.1)
[2020-01-03 08:40] LABS: GLUCOSE 209 MG/DL (70-105)
[2020-01-03 08:41] LABS: TOTAL PROTEIN 7.9 GM/DL (6.4-8.2)
[2020-01-03 08:42] LABS: BILIRUBIN,TOTAL 0.5 MG/DL (0.1-1.0); CARBON DIOXIDE 21 MMOL/L (21-32)
[2020-01-03 08:44] LABS: ALKALINE PHOSPHATASE 99 U/L (40-136); CREATININE SERUM 0.95 MG/DL (0.60-1.30); GFR ESTIMATED > 60
[2020-01-03 08:45] LABS: BUN/CREATININE RATIO 20
[2020-01-03 08:47] LABS: ALANINE AMINOTRANSFERASE 15 U/L (0-55)
[2020-01-03 08:50] LABS: FIBRIN DEGRADATION PRODUCTS 14.03 UG/ML (0.00-0.49); PROTHROMBIN TIME PATIENT 13.8 SEC (12.2-14.7)
[2020-01-03 08:53] LABS: BACTERIA,URINE TRACE /HPF; WBC,URINE 0-2 /HPF; YEAST,URINE FEW /HPF
--- NOTE | 2020-01-03 09:08 | NUR ---
ATTEMPT TO CALL DAUGHTER WITH NO ANSWER. [facility] NOTIFEID OF BEING FLU AND COVID POSITIVE.
--- NOTE | 2020-01-03 09:08 | Diagnostic Imaging Report ---
HISTORY: Sepsis COMPARISON: 03/27/2018 TECHNIQUE: Frontal view of the chest FINDINGS: There is a minimal right pleural effusion. There are bibasilar airspace opacities which appear similar to the prior study. There is mildly increasing hazy opacity in the midlungs. No pneumothorax is seen. Lung volumes are large. The cardiac silhouette is normal in size. There is diffuse osteopenia. IMPRESSION: 1. Persistent basilar opacities with mildly increasing hazy midlung opacities, may be due to infection. 2. Small right pleural effusion. Dictated by: Dictated on workstation # [id number]
--- NOTE | 2020-01-03 09:17 | NUR ---
TALKED WITH RN FROM THE [facility] WHO WILL NOTIFY THE FAMILY.
[2020-01-03] MEDS ORDERED: LACTATED RINGERS 1,000 ML IV ONE (09:27)
[2020-01-03] MEDS ORDERED: OSELTAMIVIR 75 MG (TAMIFLU) CAPSULE PO ONE (09:45)
--- NOTE | 2020-01-03 09:48 | ED General ---
General Chief Complaint: Respiratory Problems Stated Complaint: FALL - SOA Nursing Triage Note: ARRIVED VIA EMS FROM [facility] AFTER BEING FOUND ON THE FLOOR. PT STATES HE FELT VERY WEAK WHEN GETTING OUT OF BED. DENIES HITTING HIS HEAD OR BEINS SOA. PT WAS FOUND WITH A TEMP OF 102 AND A PULSE OX OF 77% ROOM AIR. NORMALLY ON 2L NC. Nursing Sepsis Screen: Possible Sepsis Risk Source of Information: Patient Exam Limitations: No Limitations History of Present Illness Date Seen by Provider: Jan 03, 2020 Time Seen by Provider: 08:07 Initial Comments Here by EMS with report of weakness this morning. He lives at [facility] in the assisted living side. Was doing okay yesterday but today had episode of significant weakness in his room. He did fall to the floor but did not hit his head. He crawled to the bathroom and was able to summon nursing help. He was found to have an oxygen saturation in the 70s. EMS brought him here on nonrebreather. His O2 improved to 100%. He is in a wing that has COVID-19. He has not had positive test thus far. Denies nausea, vomiting or diarrhea. Does have difficulty with urination that is longstanding. Also has very large scrotum secondary to hernia that is also unchanged. Timing/Duration: 1 Hour Severity: Moderate, Severe Associated Systoms: No Chest Pain, No Cough; Fever/Chills; No Nausea/Vomiting; Shortness of Air, Weakness Allergies and Home Medications Allergies Coded Allergies: No Known Drug Allergies (Unverified , 07/30/12) Home Medications Betamethasone/Propylene Glyc 15 Gm Cream..g., 1 GM TP BID Apply topically to forearms twice daily for 5 days Prescribed by: THA REZA on 06/17/15 9416 Patient Home Medication List Home Medication List Reviewed: Yes Review of Systems Review of Systems Constitutional: see HPI, fever, weakness EENTM: No nose congestion, No throat pain Respiratory: No cough; short of breath Cardiovascular: No chest pain, No edema Gastrointestinal: No abdominal pain, No nausea, No vomiting Genitourinary: see HPI Musculoskeletal: no symptoms reported Skin: change in color (Few ecchymotic lesions to the hand and arm), lesions (Skin breakdown to the scrotum) Psychiatric/Neurological: Denies Headache; Weakness All Other Systems Reviewed Negative Unless Noted: Yes Past Qyikyie-Qvthum-Tdwagb Hx Past Med/Social Hx: Reviewed Nursing Past Med/Soc Hx Patient Social History Alcohol Use: Denies Use Recreational Drug Use: No Smoking Status: Never a Smoker Recent Foreign Travel: No Contact w/Someone Who Travel: No Recent Infectious Disease Expo: No Seasonal Allergies Seasonal Allergies: No Past Medical History Surgeries: Yes (left ankle surgery) Respiratory: Yes (nocturnal hypoxia) Cardiac: No Neurological: No Genitourinary: No Gastrointestinal: Yes (lg hernia in the scotum, states never bothered him, increases with lifting) Musculoskeletal: No Endocrine: No HEENT: No Cancer: No Psychosocial: No Integumentary: No Family Medical History Reviewed Nursing Family Hx No Pertinent Family Hx Physical Exam-Suspected Sepsis Physical Exam Vital Signs Vital Signs - First Documented 01/03/20 07:46 Temp 38.1 Pulse 105 Resp 18 B/P (MAP) 139/93 (108) Pulse Ox 100 O2 Delivery Non Rebreather Capillary Refill : Less Than 3 Seconds Blood Pressure Mean: 108 Height, Weight, BMI Height: 5'11.00" Weight: 157lbs. oz. [id number]; 22.00 BMI Method:Stated General Appearance: No Apparent Distress, WD/WN HEENT: PERRL/EOMI, Pharynx Normal Neck: Non Tender, Supple Respiratory: Lungs Clear, Normal Breath Sounds Cardiovascular: No Murmur, Tachycardia Gastrointestinal: Non Tender, Soft Genital/Rectal: Other (Very large scrotum with skin breakdown noted. States that it is unchanged from previous and has longstanding history of hernia that goes into the scrotum.) Back: Normal Inspection, No CVA Tenderness, No Vertebral Tenderness Extremity: Normal Range of Motion, Non Tender Neurologic/Psychiatric: Alert, Oriented x3 Skin: warm/dry, other (Several areas of scrotal skin wounds) Focused Exam Lactate Level 01/03/20 08:00: Lactic Acid Level 2.60*H Lactic Acid Level Laboratory Tests Test 01/03/20 08:00 Lactic Acid Level 2.60 MMOL/L (0.50-2.00) *H Progress/Results/Core Measures Suspected Sepsis Recent Fever Within 48 Hours: Yes Infection Criteria Present: Suspected New Infection New/Unexplained Altered Menta: No Sepsis Screen: Possible Sepsis Risk SIRS Temperature: Pulse: 105 Respiratory Rate: 18 Laboratory Tests 01/03/20 08:00: White Blood Count 6.3 Blood Pressure 139 /93 Mean: 108 01/03/20 08:00: Lactic Acid Level 2.60*H Laboratory Tests 01/03/20 08:00: Creatinine 0.95, INR Comment 1.0, Platelet Count 130, Total Bilirubin 0.5 Results/Orders Lab Results Laboratory Tests Test 01/03/20 08:00 01/03/20 08:20 Range/Units White Blood Count 6.3 4.3-11.0 10^3/uL Red Blood Count 4.28 L 4.30-5.52 10^6/uL Hemoglobin 13.0 L 13.3-17.7 g/dL Hematocrit 40 40-54 % Mean Corpuscular Volume 94 80-99 fL Mean Corpuscular Hemoglobin 30 25-34 pg Mean Corpuscular Hemoglobin Concent 33 32-36 g/dL Red Cell Distribution Width 13.2 10.0-14.5 % Platelet Count 130 130-400 10^3/uL Mean Platelet Volume 10.3 9.0-12.2 fL Immature Granulocyte % (Auto) 1 % Neutrophils (%) (Auto) 77 H 42-75 % Lymphocytes (%) (Auto) 10 L 12-44 % Monocytes (%) (Auto) 10 0-12 % Eosinophils (%) (Auto) 1 0-10 % Basophils (%) (Auto) 1 0-10 % Neutrophils # (Auto) 4.9 1.8-7.8 10^3/uL Lymphocytes # (Auto) 0.7 L 1.0-4.0 10^3/uL Monocytes # (Auto) 0.6 0.0-1.0 10^3/uL Eosinophils # (Auto) 0.1 0.0-0.3 10^3/uL Basophils # (Auto) 0.1 0.0-0.1 10^3/uL Immature Granulocyte # (Auto) 0.1 0.0-0.1 10^3/uL Prothrombin Time 13.8 12.2-14.7 SEC INR Comment 1.0 0.8-1.4 Activated Partial Thromboplast Time 30 24-35 SEC D-Dimer 14.03 H 0.00-0.49 UG/ML Sodium Level 134 L 135-145 MMOL/L Potassium Level 4.2 3.6-5.0 MMOL/L Chloride Level 101 98-107 MMOL/L Carbon Dioxide Level 21 21-32 MMOL/L Anion Gap 12 5-14 MMOL/L Blood Urea Nitrogen 19 H 7-18 MG/DL Creatinine 0.95 0.60-1.30 MG/DL Estimat Glomerular Filtration Rate > 60 BUN/Creatinine Ratio 20 Glucose Level 209 H 70-105 MG/DL Lactic Acid Level 2.60 *H 0.50-2.00 MMOL/L Calcium Level 8.8 8.5-10.1 MG/DL Corrected Calcium 9.0 8.5-10.1 MG/DL Total Bilirubin 0.5 0.1-1.0 MG/DL Aspartate Amino Transf (AST/SGOT) 22 5-34 U/L Alanine Aminotransferase (ALT/SGPT) 15 0-55 U/L Alkaline Phosphatase 99 40-136 U/L Troponin I < 0.028 <0.028 NG/ML C-Reactive Protein High Sensitivity 0.92 H 0.00-0.50 MG/DL Total Protein 7.9 6.4-8.2 GM/DL Albumin 3.7 3.2-4.5 GM/DL Procalcitonin 0.02 <0.10 NG/ML Coronavirus 2019 (MARCO) Positive H Negative Urine Color YELLOW Urine Clarity CLEAR Urine pH 6.0 5-9 Urine Specific [place] 1.025 H 1.016-1.022 Urine Protein NEGATIVE NEGATIVE Urine Glucose (UA) TRACE H NEGATIVE Urine Ketones NEGATIVE NEGATIVE Urine Nitrite NEGATIVE NEGATIVE Urine Bilirubin NEGATIVE NEGATIVE Urine Urobilinogen 0.2 < = 1.0 MG/DL Urine Leukocyte Esterase NEGATIVE NEGATIVE Urine RBC (Auto) TRACE-I NEGATIVE Urine RBC 2-5 H /HPF Urine WBC 0-2 /HPF Urine Squamous Epithelial Cells 2-5 /HPF Urine Crystals NONE /LPF Urine Bacteria TRACE /HPF Urine Casts NONE /LPF Urine Mucus NEGATIVE /LPF Urine Yeast FEW H /HPF Urine Culture Indicated YES Micro Results Microbiology 01/03/20 Influenza Types A,B Antigen (QUENTIN) - Final, Complete My Orders Orders - RHONA GRANDE MD Cbc With Automated Diff (01/03/20 08:10) Comprehensive Metabolic Panel (01/03/20 08:10) Blood Culture (01/03/20 08:10) Sputum Culture (01/03/20 08:10) Urinalysis (01/03/20 08:10) Urine Culture (01/03/20 08:10) Protime With Inr (01/03/20 08:10) Partial Thromboplastin Time (01/03/20 08:10) Chest 1 View, Ap/Pa Only (01/03/20 08:10) Acetaminophen Tablet (Tylenol Tablet) (01/03/20 08:15) Ed Iv/Invasive Line Start (01/03/20 08:10) Ekg Tracing (01/03/20 08:10) Troponin I (01/03/20 08:10) Vital Signs Adult Sepsis Patie Q15M (01/03/20 08:10) O2 (01/03/20 08:10) Remove Rings In Anticipation O (01/03/20 08:10) Lactic Acid Analyzer (01/03/20 08:10) Influenza A And B Antigens (01/03/20 08:10) Fibrin Degradation Products (01/03/20 08:10) Procalcitonin (Pct) (01/03/20 08:10) Hs C Reactive Protein (01/03/20 08:10) Covid 19 Inhouse Test (01/03/20 08:10) Catheter(Urinary) Insert & Ass 03,15 (01/03/20 08:33) Ct Angio Chest W (01/03/20 09:26) Ct Head Wo (01/03/20 09:26) Lactated Ringers (Lr 1000 Ml Iv Solution (01/03/20 09:27) Oseltamivir 75 Mg Capsule (Tamiflu 75 (01/03/20 09:45) Medications Given in ED Current Medications Medications Dose Ordered Sig/Rachel Route Start Time Stop Time Status Last Admin Dose Admin Acetaminophen 1,000 mg ONCE PRN PO 01/03/20 08:15 01/03/20 08:35 DC 01/03/20 08:35 1,000 MG Vital Signs/I&O 01/03/20 07:46 Temp 38.1 Pulse 105 Resp 18 B/P (MAP) 139/93 (108) Pulse Ox 100 O2 Delivery Non Rebreather Capillary Refill : Less Than 3 Seconds Blood Pressure Mean: 108 Progress Note : Progress Note Seen and evaluated. IV, labs, chest x-ray and EKG ordered. Influenza and COVID-19 screening ordered. Monitor patient. Both influenza and COVID-19 are positive. Patient will require admission. I did discuss the case with Dr. Ovalle at 0926, on-call for Covid team for Dr. Mansfield. We will get CT of the chest due to grossly elevated D-dimer and go ahead and get CT of the head to allow us to appropriately dose anticoagulation. LR 1 L bolus. Discussed with patient who agrees with admission. Patient's primary doctor also notified. We did place Humphreys catheter. ECG Initial ECG Impression Date: Jan 03, 2020 Initial ECG Impression Time: 08:28 Initial ECG Rate: 104 Comment Sinus rhythm with artifact. Normal axis. No evidence of ST elevation. Interpreted by me. Diagnostic Imaging Diagonstic Imaging: Xray Plain Films/CT/US/NM/MRI: chest Comments [facility]. [place], [place] NAME: JULIAN DILLON [facility] REC#: [id number] PT STATUS: REG ER : 1930 PHYSICIAN: RHONA GRANDE MD ADMIT DATE: 01/03/20/ER Signed Date of Exam:01/03/20 CHEST 1 VIEW, AP/PA ONLY HISTORY: Sepsis COMPARISON: 03/27/2018 TECHNIQUE: Frontal view of the chest FINDINGS: There is a minimal right pleural effusion. There are bibasilar airspace opacities which appear similar to the prior study. There is mildly increasing hazy opacity in the midlungs. No pneumothorax is seen. Lung volumes are large. The cardiac silhouette is normal in size. There is diffuse osteopenia. IMPRESSION: 1. Persistent basilar opacities with mildly increasing hazy midlung opacities, may be due to infection. 2. Small right pleural effusion. Dictated by: Dictated on workstation # [id number] Dict: 01/03/20902 Trans: 01/03/20 0912 [facility] [id number] Interpreted by: ROHAN GORMAN MD Electronically signed by: ROHAN GORMAN MD 01/03/20 09 Departure Communication (Admissions) Time/Spoke to Admitting Phy: 09:26 Impression Primary Impression: Pneumonia due to COVID-19 virus Additional Impression: Influenza A Disposition: ADMITTED INPATIENT Condition: Stable Admissions Decision to Admit Reason: Admit from ER (General) Decision to Admit/Date: Jan 03, 2020 Time/Decision to Admit Time: 09:26 Departure-Patient Inst. Referrals: TAB MANSFIELD MD (PCP/Family) Primary Care Physician RHONA GRANDE MD Jan 03, 2020 09:48
[2020-01-03] MEDS ORDERED: NS 100 ML (IVPB) BAG IV ONE (10:00)
[2020-01-03] MEDS ORDERED: HOLD METFORMIN - RECEIVED CONTRAST 20 ML VIAL IV SCH (10:00)
[2020-01-03] MEDS ORDERED: IOHEXOL 350 MG/ML 100 ML (OMNIPAQUE 350) VIAL IV ONE (10:00)
[2020-01-03] MEDS ORDERED: dexAMETHasone 6 MG TAB (DECADRON) PO STA (10:13)
[2020-01-03] MEDS ORDERED: ENOXAPARIN 80 MG/0.8 ML (LOVENOX) SYR SC ONE (10:15)
--- NOTE | 2020-01-03 10:16 | Diagnostic Imaging Report ---
EXAMINATION: CT head without contrast. TECHNIQUE: Multiple contiguous axial images were obtained through the brain without the use of intravenous contrast. All CT scans use one or more of the following dose optimizing techniques: automated exposure control, MA and/or KvP adjustment based on a patient size and exam type, or iterative reconstruction. HISTORY: Covid positive. Altered mental status. COMPARISON: None available. FINDINGS: No large acute territorial ischemia, mass, or hemorrhage. No midline shift or mass effect. Decreased attenuation is seen in the periventricular and subcortical white matter. The ventricles and cortical sulci are prominent. The basilar cisterns are patent and unremarkable. The orbits are normal. Paranasal sinuses are normal. Mastoid air cells are clear. No soft tissue abnormality is seen. No osseus lesions or fractures are seen. IMPRESSION: 1. No large acute territorial ischemia, mass, or hemorrhage. 2. Chronic microvascular disease. 3. Generalized parenchymal volume loss. Dictated by: Dictated on workstation # [id number]
--- NOTE | 2020-01-03 10:16 | NUR ---
[employer] CONTACTED FOR BED.
--- NOTE | 2020-01-03 10:21 | Diagnostic Imaging Report ---
EXAMINATION: CT angiography of the chest. TECHNIQUE: Contrast enhanced thin section helical images were obtained through the chest with intravenous contrast timed for the optimal opacification of the arterial structures per CTA protocol. Post-processing, reconstructions and interpretation of angiographic images of the vessels was performed. 3D MIP reconstructions were performed and reviewed. All CT scans use one or more of the following dose optimizing techniques: automated exposure control, MA and/or KvP adjustment based on a patient size and exam type, or iterative reconstruction. HISTORY: Shortness of breath, Covid 19, possible pulmonary embolism. COMPARISON: None available. FINDINGS: There is no pulmonary embolism. 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 There is mild bibasilar consolidation and patchy opacities in the right lung base. No pleural effusion. No pneumothorax. No suspicious nodules. There is no axillary or supraclavicular lymphadenopathy. There are mildly enlarged mediastinal and hilar lymph nodes bilaterally. Heart size is normal. There are mild coronary artery calcifications. No pericardial effusion. Aorta is normal in caliber. Aorta is atherosclerotic. Limited views of the upper abdomen are unremarkable. There are no suspicious osseus lesions. IMPRESSION: 1. No pulmonary embolism. 2. Bibasilar consolidation and mediastinal lymphadenopathy. This pattern is somewhat unusual for Covid 19 and may represent a superimposed bacterial pneumonia. Dictated by: Dictated on workstation # [id number]
--- NOTE | 2020-01-03 10:33 | NUR ---
TALKED WITH PT'S DAUGHTER ON THE PHONE.
--- NOTE | 2020-01-03 10:34 | NUR ---
report taken at this time from Aleksander Quarles RN. This RN will assume care of this patient when he arrives to room [facility].
[2020-01-03 11:24] VITALS: BP 148/85
[2020-01-03] MEDS: LACTATED RINGERS 1,000 ML IV SCH (11:52)
[2020-01-03] MEDS ORDERED: ONDANSETRON 4 MG/2 ML (SDV) Z0FRAN IV PRN (12:00)
[2020-01-03] MEDS ORDERED: AZITHROMYCIN INJECTION 500 MG in NS (IVPB) 250 ML IV ONE (14:15)
[2020-01-03] MEDS ORDERED: REMDESIVIR INJ 200 MG in NS (IVPB) 210 ML IV ONE (14:15)
--- NOTE | 2020-01-03 14:18 | History & Physical-Hospitalist ---
History of Present Illness HPI/Chief Complaint Zay Black is an 89-year-old male who presented after a fall. He is a resident at [facility] and says he was walking with his walker and became lightheaded and fell. He did not pass out. He did not hit his head. He denies any fevers or chills. He denies any shortness of breath or cough. He denies any chest pain or palpitations. He denies any abdominal pain, nausea, vomiting, or diarrhea. He reports that he has been constipated. Source: patient Exam Limitations: no limitations Date Seen 01/03/20 Time Seen by a Provider: 11:40 Attending Physician Anjel Alba MD PCP Ruth Mansfield MD Referring Physician Date of Admission Jan 03, 2020 at 09:41 Home Medications & Allergies Home Medications Reviewed patient Home Medication Reconciliation performed by pharmacy medication reconciliations opto mechanical technician and/or nursing. Patients Allergies have been reviewed. Allergies Allergies Coded Allergies No Known Drug Allergies (Unverified07/30/12) Past Czmubvg-Gwrzfc-Ewfrau Hx Past Med/Social Hx: Reviewed Nursing Past Med/Soc Hx Patient Social History Alcohol Use: Denies Use Recreational Drug Use: No Smoking Status: Never a Smoker Recent Foreign Travel: No Contact w/other who traveled: No Recent Infectious Disease Expo: No Seasonal Allergies Seasonal Allergies: No Family History Reviewed Nursing Family Hx Patient reports no known family medical history. No Pertinent Family Hx Review of Systems Constitutional: dizziness EENTM: no symptoms reported Respiratory: no symptoms reported Cardiovascular: no symptoms reported Gastrointestinal: no symptoms reported Genitourinary: no symptoms reported Musculoskeletal: no symptoms reported Skin: no symptoms reported Psychiatric/Neurological: No Symptoms Reported Physical Exam Physical Exam Vital Signs Vital Signs - First Documented 01/03/20 01/03/20 07:46 11:00 Temp 38.1 Pulse 105 Resp 18 B/P (MAP) 139/93 (108) Pulse Ox 100 O2 Delivery Non Rebreather O2 Flow Rate 4.00 Capillary Refill : Less Than 3 Seconds Height, Weight, BMI Height: 5'11.00" Weight: 157lbs. oz. 71.753540di; 21.23 BMI Method:Stated General Appearance: No Apparent Distress, WD/WN HEENT: PERRL/EOMI, Pharynx Normal Neck: Normal Inspection, Supple Respiratory: Lungs Clear, Normal Breath Sounds, No Respiratory Distress Cardiovascular: Regular Rate, Rhythm, No Edema, No Murmur Gastrointestinal: Normal Bowel Sounds, Non Tender, Soft Genital/Rectal: Other (large inguinal hernia) Extremity: Normal Inspection, Non Tender, Pedal Edema Neurologic/Psychiatric: Alert, Oriented x3, No Motor/Sensory Deficits, Normal Mood/Affect Skin: Normal Color, Warm/Dry Results Results/Procedures Labs Laboratory Tests 01/03/20 08:00 Patient resulted labs reviewed. Imaging: Reviewed Imaging Report Assessment/Plan Admission Diagnosis acute respiratory failure due to COVID-19 and influenza A Admission Status: Inpatient Order (span 2 midnights) Reason for Inpatient Admission: respiratory failure requiring supplemental oxygen Assessment and Plan Acute respiratory failure due to COVID-19 and influenza A Possible superimposed bacterial pneumonia Elevated d-dimer Lactic acidosis Viral sepsis Lymphopenia associated with COVID-19 COVID MARCO positive Influenza A positive Ddimer elevated >12 CT Chest without pulmonary embolism, bibasilar consolidation and mediastinal lymphadenopathy Started on therapeutic Lovenox Obtain lower extremity doppler Sunday SIRS+ with fever and tachycardia Likely due to COVID, possible bacterial pneumonia Started on gentle IV fluids Begin Rocephin and Azithromycin Started on Decadron Begin Remdesivir Discussed convalescent plasma, risks/benefits/EUA use, patient agrees Started on Tamiflu Diagnosis/Problems Diagnosis/Problems (1) Acute respiratory failure due to COVID-19 Status: Acute (2) Pneumonia due to COVID-19 virus Status: Acute (3) Influenza A Status: Acute (4) Lymphopenia associated with COVID-19 Status: Acute (5) Lactic acidosis Status: Acute (6) Viral sepsis Status: Acute (7) PNA (pneumonia) Status: Acute (8) Advanced age Status: Chronic (9) Inguinal hernia Status: Chronic Clinical Quality Measures DVT/VTE Risk/Contraindication: Risk Factor Score Per Nursin RFS Level Per Nursing on Admit: 2=Moderate ANJEL ALBA MD Jan 03, 2020 14:18
[2020-01-03] MEDS: cefTRIAXone FOR IV USE 1,000 MG in WATER (STERILE) FOR INJECTION 10 ML IV SCH (14:41)
[2020-01-03 16:44] VITALS: BP 156/77
[2020-01-03] MEDS ORDERED: SENN-234 PO (17:46)
[2020-01-03] MEDS ORDERED: MULT-974 PO (17:46)
[2020-01-03] MEDS ORDERED: FERR325T5 PO (17:46)
[2020-01-03] MEDS ORDERED: METF-397 PO (17:46)
[2020-01-03] MEDS ORDERED: ALBU2.5V4 INH (17:48)
[2020-01-03] MEDS ORDERED: ACET325C7 PO (17:48)
[2020-01-03 19:48] VITALS: BP 136/68
[2020-01-03] MEDS: OSELTAMIVIR 75 MG (TAMIFLU) CAPSULE PO SCH (21:09)
[2020-01-03] MEDS: ENOXAPARIN 80 MG/0.8 ML (LOVENOX) SYR SC SCH (21:10)
[2020-01-03] MEDS ORDERED: NS IV 500 ML 500 ML ONE (22:18)
[2020-01-03 22:30] VITALS: BP 135/79
[2020-01-03 22:51] VITALS: BP 144/81
[2020-01-03 23:47] VITALS: BP 121/64
[2020-01-04] VITALS (7 sets, daily range): BP systolic 124–148; BP diastolic 70–82
[2020-01-04] MEDS: LACTATED RINGERS 1,000 ML IV SCH ×2 (00:32→13:47)
[2020-01-04 06:01] LABS: BASOPHILS % (AUTO) 0 % (0-10); EOSINOPHILS % (AUTO) 0 % (0-10); HEMATOCRIT 34 % (40-54); HEMOGLOBIN 11.2 g/dL (13.3-17.7); LYMPHOCYTES % (AUTO) 20 % (12-44); MEAN CORPUSCULAR HEMOGLOBIN 30 pg (25-34); MEAN CORPUSCULAR HGB CONC 33 g/dL (32-36); MEAN CORPUSCULAR VOLUME 93 fL (80-99); MEAN PLATELET VOLUME 10.2 fL (9.0-12.2); MONOCYTES # (AUTO) 0.5 10^3/uL (0.0-1.0); MONOCYTES % (AUTO) 11 % (0-12); NEUTROPHILS # (AUTO) 3.3 10^3/uL (1.8-7.8); NEUTROPHILS % (AUTO) 68 % (42-75); PLATELET COUNT 105 10^3/uL (130-400); WHITE BLOOD COUNT 4.8 10^3/uL (4.3-11.0)
[2020-01-04 06:12] LABS: ALBUMIN 3.3 GM/DL (3.2-4.5)
[2020-01-04 06:13] LABS: CHLORIDE 102 MMOL/L (98-107); POTASSIUM 3.6 MMOL/L (3.6-5.0); SODIUM 138 MMOL/L (135-145)
[2020-01-04 06:14] LABS: CALCIUM 8.2 MG/DL (8.5-10.1)
[2020-01-04 06:15] LABS: GLUCOSE 105 MG/DL (70-105); TOTAL PROTEIN 6.8 GM/DL (6.4-8.2)
[2020-01-04 06:16] LABS: CARBON DIOXIDE 25 MMOL/L (21-32)
[2020-01-04 06:17] LABS: BILIRUBIN,TOTAL 0.4 MG/DL (0.1-1.0)
[2020-01-04 06:18] LABS: ALKALINE PHOSPHATASE 90 U/L (40-136)
[2020-01-04 06:19] LABS: CREATININE SERUM 0.79 MG/DL (0.60-1.30); GFR ESTIMATED > 60
[2020-01-04 06:20] LABS: BUN/CREATININE RATIO 22
[2020-01-04 06:21] LABS: ALANINE AMINOTRANSFERASE 14 U/L (0-55)
[2020-01-04] MEDS ORDERED: ACETAMINOPHEN 325 MG TABLET ONE ×2 (08:29→08:36)
[2020-01-04] MEDS: OSELTAMIVIR 75 MG (TAMIFLU) CAPSULE PO SCH ×2 (08:35→21:16)
[2020-01-04] MEDS: AZITHROMYCIN 250 MG TAB (ZITHROMAX) PO SCH (08:35)
[2020-01-04] MEDS: dexAMETHasone 6 MG TAB (DECADRON) PO SCH (08:35)
[2020-01-04] MEDS: ENOXAPARIN 80 MG/0.8 ML (LOVENOX) SYR SC SCH ×2 (08:40→21:14)
[2020-01-04] MEDS: REMDESIVIR INJ 100 MG in NS (IVPB) 230 ML IV SCH (13:48)
[2020-01-04] MEDS: cefTRIAXone FOR IV USE 1,000 MG in WATER (STERILE) FOR INJECTION 10 ML IV SCH (15:23)
--- NOTE | 2020-01-04 17:00 | Progress Note - Hospitalist ---
Subjective HPI/CC On Admission Date Seen by Provider: Jan 04, 2020 Time Seen by Provider: 11:45 Zay Black is an 89-year-old male who presented after a fall. He is a resident at [facility] and says he was walking with his walker and became lightheaded and fell. He did not pass out. He did not hit his head. He denies any fevers or chills. He denies any shortness of breath or cough. He denies any chest pain or palpitations. He denies any abdominal pain, nausea, vomiting, or diarrhea. He reports that he has been constipated. Subjective/Events-last exam He feels about the same. He feels weak. He has been having fevers. He denies shortness of breath. He denies cough. He has been eating and drinking without issue. Focused Exam Lactate Level 01/03/20 08:00: Lactic Acid Level 2.60*H 01/03/20 15:07: Lactic Acid Level 1.58 Objective Exam Vital Signs Vital Signs Date Time Temp Pulse Resp B/P (MAP) Pulse Ox O2 Delivery O2 Flow Rate FiO2 01/04/20 12:50 36.8 74 22 124/70 (88) 93 Nasal Cannula 2.00 Capillary Refill : Less Than 3 Seconds General Appearance: No Apparent Distress, WD/WN Respiratory: Lungs Clear, Normal Breath Sounds, No Respiratory Distress Cardiovascular: Regular Rate, Rhythm, No Edema, No Murmur Gastrointestinal: Normal Bowel Sounds, Non Tender, Soft Extremity: Normal Inspection, Non Tender, Pedal Edema Neurologic/Psychiatric: Alert, Oriented x3, No Motor/Sensory Deficits, Normal Mood/Affect Skin: Normal Color, Warm/Dry Results/Procedures Lab Laboratory Tests 01/04/20 05:46 Patient resulted labs reviewed. Imaging: Reviewed Imaging Report Assessment/Plan Assessment and Plan Assess & Plan/Chief Complaint Acute respiratory failure due to COVID-19 and influenza A Possible superimposed bacterial pneumonia Elevated d-dimer COVID MARCO positive Influenza A positive Ddimer elevated >12 CT Chest without pulmonary embolism, bibasilar consolidation and mediastinal lymphadenopathy Continue therapeutic Lovenox Obtain lower extremity doppler Sunday Continue Rocephin and Azithromycin Continue Decadron Continue Remdesivir s/p 1 unit convalescent plasma Continue Tamiflu Lactic acidosis, resolved Viral sepsis, resolved Lymphopenia associated with COVID-19, resolved Diagnosis/Problems Diagnosis/Problems (1) Acute respiratory failure due to COVID-19 Status: Acute (2) Pneumonia due to COVID-19 virus Status: Acute (3) Influenza A Status: Acute (4) Lymphopenia associated with COVID-19 Status: Acute (5) Lactic acidosis Status: Acute (6) Viral sepsis Status: Acute (7) PNA (pneumonia) Status: Acute (8) Advanced age Status: Chronic (9) Inguinal hernia Status: Chronic Clinical Quality Measures DVT/VTE Risk/Contraindication: Risk Factor Score Per Nursin RFS Level Per Nursing on Admit: 2=Moderate ANJEL ALBA MD Jan 04, 2020 17:00
[2020-01-04] MEDS: ACETAMINOPHEN 325 MG TABLET PO PRN (21:15)
[2020-01-05 00:21] VITALS: BP 130/76
[2020-01-05] MEDS: LACTATED RINGERS 1,000 ML IV SCH ×2 (03:29→15:40)
[2020-01-05 07:35] LABS: ALANINE AMINOTRANSFERASE 16 U/L (0-55); ALBUMIN 3.2 GM/DL (3.2-4.5); ALKALINE PHOSPHATASE 87 U/L (40-136); BILIRUBIN,TOTAL 0.3 MG/DL (0.1-1.0); BUN/CREATININE RATIO 27; CALCIUM 8.3 MG/DL (8.5-10.1); CARBON DIOXIDE 25 MMOL/L (21-32); CHLORIDE 102 MMOL/L (98-107); CREATININE SERUM 0.77 MG/DL (0.60-1.30); GFR ESTIMATED > 60; GLUCOSE 156 MG/DL (70-105); POTASSIUM 3.6 MMOL/L (3.6-5.0); SODIUM 137 MMOL/L (135-145); TOTAL PROTEIN 6.9 GM/DL (6.4-8.2)
[2020-01-05 08:13] VITALS: BP 114/64
[2020-01-05] MEDS ORDERED: FERR325T18 PO (08:18)
[2020-01-05] MEDS ORDERED: ACET325C7 PO (08:18)
[2020-01-05] MEDS ORDERED: MULT-570 PO (08:18)
[2020-01-05] MEDS ORDERED: METF-397 PO (08:18)
[2020-01-05] MEDS ORDERED: ALB0.5V INH (08:18)
[2020-01-05] MEDS ORDERED: SENN-109 PO (08:18)
--- NOTE | 2020-01-05 08:19 | NUR ---
MED REC WAS ENTERED USING THE PHYSICIANS ORDERS FROM [facility]
[2020-01-05] MEDS: AZITHROMYCIN 250 MG TAB (ZITHROMAX) PO SCH (09:09)
[2020-01-05] MEDS: dexAMETHasone 6 MG TAB (DECADRON) PO SCH (09:09)
[2020-01-05] MEDS: OSELTAMIVIR 75 MG (TAMIFLU) CAPSULE PO SCH (09:10)
[2020-01-05] MEDS: ENOXAPARIN 80 MG/0.8 ML (LOVENOX) SYR SC SCH ×2 (09:33→20:12)
--- NOTE | 2020-01-05 12:41 | Progress Note - Hospitalist ---
Subjective HPI/CC On Admission Date Seen by Provider: Jan 05, 2020 Time Seen by Provider: 12:39 Zay Black is an 89-year-old male who presented after a fall. He is a resident at [facility] and says he was walking with his walker and became lightheaded and fell. He did not pass out. He did not hit his head. He denies any fevers or chills. He denies any shortness of breath or cough. He denies any chest pain or palpitations. He denies any abdominal pain, nausea, vomiting, or diarrhea. He reports that he has been constipated. Subjective/Events-last exam Pt reports feeling much better. Drinking ensures but other poor oral intake. Focused Exam Lactate Level 01/03/20 08:00: Lactic Acid Level 2.60*H 01/03/20 15:07: Lactic Acid Level 1.58 Objective Exam Vital Signs Vital Signs Date Time Temp Pulse Resp B/P (MAP) Pulse Ox O2 Delivery O2 Flow Rate FiO2 01/05/20 08:13 36.6 61 22 114/64 (81) 93 Nasal Cannula 2.00 Capillary Refill : Less Than 3 Seconds General Appearance: No Apparent Distress, WD/WN, Chronically ill Respiratory: Lungs Clear, No Respiratory Distress Cardiovascular: Regular Rate, Rhythm, No Murmur Neurologic/Psychiatric: Alert, Oriented x3 Results/Procedures Lab Laboratory Tests 01/05/20 05:50 Patient resulted labs reviewed. Imaging: Reviewed Imaging Report Assessment/Plan Assessment and Plan Assess & Plan/Chief Complaint Acute respiratory failure due to COVID-19 and influenza A Possible superimposed bacterial pneumonia Elevated d-dimer COVID MARCO positive Influenza A positive Ddimer elevated >12 CT Chest without pulmonary embolism, bibasilar consolidation and mediastinal lymphadenopathy Dopplers ordered therapeutic Lovenox on hold for bleeding on elbow Continue Rocephin and Azithromycin Continue Decadron Continue Remdesivir s/p 1 unit convalescent plasma Continue Tamiflu Lactic acidosis, resolved Viral sepsis, resolved Lymphopenia associated with COVID-19, resolved Clinical Quality Measures DVT/VTE Risk/Contraindication: Risk Factor Score Per Nursin RFS Level Per Nursing on Admit: 2=Moderate KIT BARRAZA MD Jan 05, 2020 12:41
--- NOTE | 2020-01-05 14:42 | Occupational Therapy Eval ---
OT Evaluation-General/PLF Medical Diagnosis Admission Date Jan 03, 2020 at 09:41 Medical Diagnosis: COVID+, Influenza A Onset Date: Jan 03, 2020 Therapy Diagnosis Therapy Diagnosis: weakness, decreased ADL status Height/Weight Height (Feet): 5 Height (Inches): 11.00 Weight (Pounds): 157 Precautions Precautions/Isolations: Contact Isolation, Droplet Isolation Referral Physician: Yamile Referral Reason: Evaluation/Treatment Medical History Additional Medical History nocturnal hypoxia/scrotal hernia (chronic) Current History ED via EMS due to being found on floor at [facility], temperature of 102 F and O2 sat of 77% Reviewed History: Yes Social History Home: Assisted Living ([facility]) ADL-Prior Level of Function SCALE: Activities may be completed with or without assistive devices. 3-Ropvrtwmsa-zguihxg completes the activity by him/herself with no assistance from a helper. 5-Set-up or Clean-up Assistance-helper sets up or cleans up; patient completes activity. [place] assists only prior to or following the activity. 4-Supervision or Touching Assistance-helper provides verbal cues and/or touching/steadying and/or contact guard assistance as patient completes activity. Assistance may be provided throughout the activity or intermittently. 3-Partial/Moderate Assistance-helper does LESS THAN HALF the effort. [place] lifts, holds or supports trunk or limbs, but provides less than half the effort. 2-Substantial/Maximal Assistance-helper does MORE THAN HALF the effort. [place] lifts or holds trunk or limbs and provides more than half the effort. 2-Cyvrjxbph-xfijzw does ALL the effort. Patient does none of the effort to complete the activity. Or, the assistance of 2 or more helpers is required for the patient to complete the activity. If activity was not attempted, code reason: 7-Patient Refused. 9-Not Applicable-not attempted and the patient did not perform the activity before the current illness, exacerbation or injury. 10-Not Attempted due to Environmental Limitations-(lack of equipment, weather restraints, etc.). 88-Not Attempted due to Medical Conditions or Safety Concerns. ADL PLOF Comments Pt indicates he lives at [facility]. He was able to dress and shower himself, although staff were present during shower. Pt also able to take self to bathroom to complete toileting, and used urinal independently. Pt had meals provided to him. Self Care: Needed Some Help Functional Cognition: Independent DME/Equipment Comments walker OT Current Status Subjective Pt seated in recliner, nursing staff present assisting pt with sponge bath. Pt agreeable to OT evaluation/tx. Mental Status/Objective Patient Orientation: Person, Place, Time, Situation Attachments: Humphreys Catheter, IV, Oxygen Current Upper Extremity ROM WFL, BUE shoulder flexion to approx 140 degrees Upper Extremity Coordination WFL Upper Extremity Sensation WFL Upper Extremity Strength grossly 3/5 ADL-Treatment Shower/Bathe Self (QC): 1 (2 person assistance to wash periarea/buttocks. OT assisted with stand as nursing staff performed washing.) Upper Body Dressing (QC): 3 ([facility] [place] [facility] [place].) On/Off Footwear (QC): 1 (Pt required assistance donning bilateral gripper socks. ) Other Treatments Pt seated in recliner, agreeable to OT Tx. OT introduced self to pt, educating him on purpose and benefit of OT, he verbalized understanding. Pt provided information about PLOF, and he participated in UE screen. OT assisted pt with donning bilateral gripper socks. Pt required x2 assist in stance at FWW, OT stood with pt CGA-min A ~2mins as nursing staff assisted with washing buttocks and periarea. Pt then sat back in recliner. Pt states he feels weaker right now compared to his PLOF. OT educated pt on OT POC while he is admitted to hospital, he verbalized understanding. Post OT tx, pt seated in recliner, nursing staff present, all needs met. Education OT Patient Education: Correct positioning, Energy conservation, Modified ADL techniques, Progress toward Goal/Update tx plan, Purpose of tx/functional activities, Rehab process, Safety issues, Transfer techniques Teaching Recipient: Patient Teaching Methods: Discussion Response to Teaching: Verbalize Understanding OT Snf Goals Autism Specialist Goals Time Frame: Jan 23, 2020 Eating (QC): 6 Oral Hygiene (QC): 6 Toileting Hygiene (QC): 4 Shower/Bathe Self (QC): 4 Upper Body Dressing (QC): 5 Lower Body Dressing (QC): 4 On/Off Footwear (QC): 4 Additional Goals: 1-Demonstrate ADL Tasks, 2-Verbalize Understanding, 3-I mproveStrength/Dariana 1=Demonstrate adherence to instructed precautions during ADL tasks. 2=Patient will verbalize/demonstrate understanding of assistive devices/modifications for ADL. 3=Patient will improve strength/tolerance for activity to enable patient to perform ADL's. OT Education/Plan Problem List/Assessment Assessment: Decreased Activ Tolerance, Decreased UE Strength, Impaired Funct Balance, Impaired I ADL's, Impaired Self-Care Skills Pt would benefit from OT in order to maximize LOF for safe return to [facility]. Discharge Recommendations Plan/Recommendations: Continue POC Treatment Plan/Plan of Care Patient would benefit from OT for education, treatment and training to promote independence in ADL's, mobility, safety and/or upper extremity function for ADL's. Plan of Care: ADL Retraining, Functional Mobility, UE Funct Exercise/Act Treatment Duration: Jan 23, 2020 Frequency: 5 times per week Estimated Hrs Per Day: .25 hour per day Agreement: Yes Rehab Potential: Fair Time/GCodes Start Time: 13:41 Stop Time: 13:55 Total Time Billed (hr/min): 14 Billed Treatment Time 1, ADAM LUCERO OT Jan 05, 2020 14:42
--- NOTE | 2020-01-05 14:42 | Physical Therapy Evaluation ---
PT Evaluation-General Medical Diagnosis Admission Date Jan 03, 2020 at 09:41 Medical Diagnosis: Covid (+)/Flu A/ pneumonia Onset Date: Jan 03, 2020 Therapy Diagnosis Therapy Diagnosis: generalized weakness/debility Height/Weight Height (Feet): 5 Height (Inches): 11.00 Weight (Pounds): 157 Precautions Precautions/Isolations: Contact Isolation, Droplet Isolation, Fall Prevention Weight Bear Status Full Weight Bearing Left Lower Extremity: Left Full Weight Bearing Referral Physician: Yamile Reason for Referral: Evaluation/Treatment Medical History Additional Medical History nocturnal hypoxia/scrotal hernia (chronic) Current History EMS from [place] secondary patient found on floor due to patient became lightheaded and fell while ambulating with FWW Reviewed History: Yes Social History Home: Assisted Living Entry Into Home: Level Entry Prior Prior Level of Function SCALE: Activities may be completed with or without assistive devices. 1-Lgloflmvrt-fejitwn completes the activity by him/herself with no assistance from a helper. 5-Set-up or Clean-up Assistance-helper sets up or cleans up; patient completes activity. [place] assists only prior to or following the activity. 4-Supervision or Touching Assistance-helper provides verbal cues and/or touching/steadying and/or contact guard assistance as patient completes activity. Assistance may be provided throughout the activity or intermittently. 3-Partial/Moderate Assistance-helper does LESS THAN HALF the effort. [place] lifts, holds or supports trunk or limbs, but provides less than half the effort. 2-Substantial/Maximal Assistance-helper does MORE THAN HALF the effort. [place] lifts or holds trunk or limbs and provides more than half the effort. 1-Zphwrjrso-dxkfyu does ALL the effort. Patient does none of the effort to complete the activity. Or, the assistance of 2 or more helpers is required for the patient to complete the activity. If activity was not attempted, code reason: 7-Patient Refused. 9-Not Applicable-not attempted and the patient did not perform the activity before the current illness, exacerbation or injury. 10-Not Attempted due to Environmental Limitations-(lack of equipment, weather restraints, etc.). 88-Not Attempted due to Medical Conditions or Safety Concerns. Bed Mobility: 6 Transfers (B,C,W/C): 6 Gait: 6 Indoor Mobility (Ambulation): Independent Prior Devices Use: Walker PT Evaluation-Current Subjective Patient agrees to PT. Objective Patient Orientation: Normal For Age Attachments: Oxygen, IV ROM/Strength ROM Lower Extremities bilateral LE WFL Strength Lower Extremities 3/5 grossly bilateral LE Integumentary/Posture Integumentary refer to nursing notes Bowel Incontinence: No Bladder Incontinence: Humphreys Cath Posture kyphotic Neuromuscular (Tone, Coordination, Reflexes) grossly intact Sensory Vision: Functional Hearing: Impaired Transfers Sit to Lying (QC): 3 Lying to Sitting/Side of Bed(Q: 3 Sit to Stand (QC): 2 Chair/Ljn-qf-Jkplq Xfer(QC): 2 Toilet Transfer (QC): 2 with noted left lean due to weakness Gait Does the Patient Walk?: Yes Mode of Locomotion: Walk Anticipated Mode of Locomotion: Walk Walk 10 feet (QC): 2 Walk 50 ft with 2 Turns(QC): 88 Walk 150 ft (QC): 88 Gait Assistive Device: FWW Comments/Gait Description left lean and shuffle gait sequence Balance Sitting Static: Normal Sitting Dynamic: Normal Standing Static: Fair Standing Dynamic: Poor Assessment/Needs 89 y.o. male, will benefit from skilled PT to address functional strength and mobility to improve current LOF to safely return to [place] at maximum LOF. Rehab Potential: Fair PT Short Term Goals Short Term Goals Time Frame: Jan 14, 2020 Roll Left & Right: 4 Sit to lyin Lying to sitting on side of be: 4 Sit to stand: 4 Chair/kww-um-ufsus transfer: 4 Toilet transfer: 4 Walk 10 feet: 4 Walk 50 feet with two turns: 4 Walk 150 feet: 4 PT Study Director Goals Long-Term Goals PT Study Director Goals Time Frame: Jan 24, 2020 Roll Left & Right (QC): 6 Sit to Lying (QC): 6 Lying-Sitting on Side/Bed(QC): 6 Sit to Stand (QC): 6 Chair/Vte-oc-Dboet Xfer(QC): 6 Toilet Transfer (QC): 6 Does the Patient Walk: Yes Walk 10 feet (QC): 6 Walk 50ft with 2 Turns (QC): 6 Walk 150 ft (QC): 6 PT Plan Problem List Problem List: Activity Tolerance, Functional Strength, Safety, Balance, Gait, Transfer, Bed Mobility Treatment/Plan Treatment Plan: Continue Plan of Care Treatment Plan: Bed Mobility, Education, Functional Activity Dariana, Functional Strength, Gait, Safety, Therapeutic Exercise, Transfers Treatment Duration: Jan 24, 2020 Frequency: 6 times per week Estimated Hrs Per Day: .25 hour per day Patient and/or Family Agrees t: Yes Time/GCodes Time In: 1325 Time Out: 1335 Total Billed Treatment Time: 10 Total Billed Treatment 1 visit EVModC 10 min ANA SOLIS PT Jan 05, 2020 14:42
[2020-01-05] MEDS: cefTRIAXone FOR IV USE 1,000 MG in WATER (STERILE) FOR INJECTION 10 ML IV SCH (15:40)
[2020-01-05] MEDS: REMDESIVIR INJ 100 MG in NS (IVPB) 230 ML IV SCH (15:40)
[2020-01-05 16:00] VITALS: BP 152/80
[2020-01-05] MEDS: OSELTAMIVIR 30 MG (TAMIFLU) CAPSULE PO SCH (20:12)
[2020-01-06 00:34] VITALS: BP 173/91
[2020-01-06] MEDS: LACTATED RINGERS 1,000 ML IV SCH (05:44)
[2020-01-06 06:22] LABS: ALBUMIN 3.1 GM/DL (3.2-4.5); CHLORIDE 101 MMOL/L (98-107); POTASSIUM 3.7 MMOL/L (3.6-5.0); SODIUM 135 MMOL/L (135-145)
[2020-01-06 06:25] LABS: GLUCOSE 229 MG/DL (70-105); TOTAL PROTEIN 6.7 GM/DL (6.4-8.2)
[2020-01-06 06:26] LABS: CARBON DIOXIDE 25 MMOL/L (21-32)
[2020-01-06 06:27] LABS: BILIRUBIN,TOTAL 0.3 MG/DL (0.1-1.0)
[2020-01-06 06:28] LABS: ALKALINE PHOSPHATASE 82 U/L (40-136); CREATININE SERUM 0.79 MG/DL (0.60-1.30); GFR ESTIMATED > 60
[2020-01-06 06:29] LABS: BUN/CREATININE RATIO 25
[2020-01-06 06:31] LABS: ALANINE AMINOTRANSFERASE 21 U/L (0-55)
[2020-01-06 08:15] VITALS: BP 170/88
[2020-01-06] MEDS: dexAMETHasone 6 MG TAB (DECADRON) PO SCH (08:36)
[2020-01-06] MEDS: ACETAMINOPHEN 325 MG TABLET PO PRN (08:37)
[2020-01-06] MEDS: AZITHROMYCIN 250 MG TAB (ZITHROMAX) PO SCH (08:37)
[2020-01-06] MEDS: OSELTAMIVIR 30 MG (TAMIFLU) CAPSULE PO SCH ×2 (08:37→20:30)
[2020-01-06] MEDS: ENOXAPARIN 80 MG/0.8 ML (LOVENOX) SYR SC SCH (08:38)
--- NOTE | 2020-01-06 09:04 | Diagnostic Imaging Report ---
PROCEDURE: US Venous Lower Ext Chi. TECHNIQUE: Multiple real-time grayscale images were obtained over the lower extremities in various projections, bilaterally. Additional duplex Doppler and color Doppler images were also obtained. INDICATION: Elevated D-dimer. There is no evidence of right or left lower extremity DVT. Both large cassia-deep venous system shows normal compressibility with normal response to augmentation and Valsalva. No fluid collection or mass is detected. IMPRESSION: No evidence of right or left lower extremity DVT. Dictated by: Dictated on workstation # [id number]
--- NOTE | 2020-01-06 10:59 | Occupational Ther Daily Note ---
OT Current Status-Daily Note Subjective Pt AxO. Agrees to tx. States pain through R pec mm that radiated last night to L. States it began hurting when transferring with walker from chair to bed last night. Pt denies going to chair, but agrees to EOB/ sit to stands. Mental Status/Objective Patient Orientation: Normal For Age Attachments: Humphreys Catheter, Oxygen ADL-Treatment Therapy Code Descriptions/Definitions Functional [place] Measure: 0=Not Assessed/NA 4=Minimal Assistance 1=Total Assistance 5=Supervision or Setup 2=Maximal Assistance 6=Modified [place] 3=Moderate Assistance 7=Complete IndependenceSCALE: Activities may be completed with or without assistive devices. 5-Dqudgeirsc-ytvpwwu completes the activity by him/herself with no assistance from a helper. 5-Set-up or Clean-up Assistance-helper sets up or cleans up; patient completes activity. [place] assists only prior to or following the activity. 4-Supervision or Touching Assistance-helper provides verbal cues and/or touching/steadying and/or contact guard assistance as patient completes act ivity. Assistance may be provided throughout the activity or intermittently. 3-Partial/Moderate Assistance-helper does LESS THAN HALF the effort. [place] lifts, holds or supports trunk or limbs, but provides less than half the effort. 2-Substantial/Maximal Assistance-helper does MORE THAN HALF the effort. [place] lifts or holds trunk or limbs and provides more than half the effort. 0-Qrjtnnqkb-iqtagq does ALL the effort. Patient does none of the effort to complete the activity. Or, the assistance of 2 or more helpers is required for the patient to complete the activity. If activity was not attempted, code reason: 7-Patient Refused. 9-Not Applicable-not attempted and the patient did not perform the activity before the current illness, exacerbation or injury. 10-Not Attempted due to Environmental Limitations-(lack of equipment, weather restraints, etc.). 88-Not Attempted due to Medical Conditions or Safety Concerns. Eating (QC): 6 Other Treatment Pt bed mob with min A. Sits EOB and completes minimal sitting balance tasks. Pt sit to stand with elevated bed with CGA. Stands for ~2 min. Pt educated on purpose of tx and benefits of upright positioning. Pt continues to deny going to chair this am. Pt returns to sit. States pain through chest (muscular). Pt's nurse is notified. Pt requires rest breaks intermittently. Returns to bed with mod A. All needs met, call light in reach. Education OT Patient Education: Correct positioning, Exercise program, Purpose of tx/functional activities, Safety issues Teaching Recipient: Patient Teaching Methods: Demonstration, Discussion Response to Teaching: Verbalize Understanding, Return Demonstration, Reinforcement Needed OT End Stapler Goals Detention Goals Time Frame: Jan 23, 2020 Eating (QC): 6 Oral Hygiene (QC): 6 Toileting Hygiene (QC): 4 Shower/Bathe Self (QC): 4 Upper Body Dressing (QC): 5 Lower Body Dressing (QC): 4 On/Off Footwear (QC): 4 Additional Goals: 1-Demonstrate ADL Tasks, 2-Verbalize Understanding, 3- ImproveStrength/Dariana 1=Demonstrate adherence to instructed precautions during ADL tasks. 2=Patient will verbalize/demonstrate understanding of assistive devices/modifications for ADL. 3=Patient will improve strength/tolerance for activity to enable patient to perform ADL's. OT Education/Plan Problem List/Assessment Assessment: Decreased Activ Tolerance, Decreased UE Strength, Dependent Transfers Pt would benefit from OT in order to maximize LOF for safe return to [facility]. Discharge Recommendations Plan/Recommendations: Continue POC Therapy Discharge Recommendati: Assisted Living, Post Acute OT Treatment Plan/Plan of Care Treatment,Training & Education: Yes Patient would benefit from OT for education, treatment and training to promote independence in ADL's, mobility, safety and/or upper extremity function for ADL's. Plan of Care: ADL Retraining, Functional Mobility, UE Funct Exercise/Act Treatment Duration: Jan 23, 2020 Frequency: 5 times per week Estimated Hrs Per Day: .25 hour per day Agreement: Yes Rehab Potential: Fair Time/GCodes Start Time: 09:40 Stop Time: 10:07 Total Time Billed (hr/min): 27 Billed Treatment Time 1, FA (2) ANA MARTINEZ OTAidan Jan 06, 2020 10:59
[2020-01-06] MEDS ORDERED: IBUPROFEN 600 MG (MOTRIN) TAB PO PRN (11:45)
[2020-01-06] MEDS: REMDESIVIR INJ 100 MG in NS (IVPB) 230 ML IV SCH (13:37)
--- NOTE | 2020-01-06 13:56 | Progress Note - Hospitalist ---
Subjective HPI/CC On Admission Date Seen by Provider: Jan 06, 2020 Time Seen by Provider: 13:43 Zay Black is an 89-year-old male who presented after a fall. He is a resident at [facility] and says he was walking with his walker and became lightheaded and fell. He did not pass out. He did not hit his head. He denies any fevers or chills. He denies any shortness of breath or cough. He denies any chest pain or palpitations. He denies any abdominal pain, nausea, vomiting, or diarrhea. He reports that he has been constipated. Subjective/Events-last exam Pt reports having muscle pain following working with PT. Chaplain Cobb was in the room when I entered and stayed at the patient's invitation. He expressed to me that he was was ready to go home. I asked if he meant back to [facility] and he stat ed no he was ready to "go back to where I came from." I clarified this further and he states he's done fighting and ready to and meet the Lord. We discussed that he was actually doing ok today and coming down on his oxygen requirement. He understood but still stated he was ready to be done. He states he has already called 2/3 of his children to discuss this with him. .I asked him what he wanted me to do to help him fulfill his goals and if he wanted hospice to see him and he was unsure. He plans to make a list of objectives for me tomorrow. Focused Exam Lactate Level 01/03/20 15:07: Lactic Acid Level 1.58 Objective Exam Vital Signs Vital Signs Date Time Temp Pulse Resp B/P (MAP) Pulse Ox O2 Delivery O2 Flow Rate FiO2 01/06/20 08:15 66 20 170/88 (115) 92 Nasal Cannula 1.50 01/06/20 00:34 36.7 Capillary Refill : Less Than 3 Seconds General Appearance: No Apparent Distress, Chronically ill, Thin Respiratory: Lungs Clear, No Respiratory Distress Cardiovascular: Regular Rate, Rhythm, No Murmur Neurologic/Psychiatric: Alert, Oriented x3 Results/Procedures Lab Laboratory Tests 01/06/20 05:43 Patient resulted labs reviewed. Imaging: Reviewed Imaging Report Assessment/Plan Assessment and Plan Assess & Plan/Chief Complaint Acute respiratory failure due to COVID-19 and influenza A Possible superimposed bacterial pneumonia Elevated d-dimer COVID MARCO positive Influenza A positive Ddimer elevated >12 CT Chest without pulmonary embolism, bibasilar consolidation and mediastinal lymphadenopathy Dopplers negative prophylactic Lovenox Continue Rocephin and Azithromycin Continue Decadron Continue Remdesivir s/p 1 unit convalescent plasma Continue Tamiflu Palliative care consulted, appreciate assistance Will await his discussion with his other daughter and his goals to form appropriate discharge plan tomorrow Lactic acidosis, resolved Viral sepsis, resolved Lymphopenia associated with COVID-19, resolved Diagnosis/Problems Diagnosis/Problems (1) Lymphopenia associated with COVID-19 Status: Acute (2) Acute respiratory failure due to COVID-19 Status: Acute (3) Pneumonia due to COVID-19 virus Status: Acute (4) PNA (pneumonia) Status: Acute (5) Advanced age Status: Chronic (6) Influenza A Status: Acute Clinical Quality Measures DVT/VTE Risk/Contraindication: Risk Factor Score Per Nursin RFS Level Per Nursing on Admit: 2=Moderate KIT BARRAZA MD Jan 06, 2020 13:56
[2020-01-06] MEDS: cefTRIAXone FOR IV USE 1,000 MG in WATER (STERILE) FOR INJECTION 10 ML IV SCH (14:09)
--- NOTE | 2020-01-06 14:46 | Physical Therapy Daily Note ---
PT Daily Note-Current Subjective Patient declined ambulation and exercise but agrees to up in recliner to eat [employer] and drink a Sprite. Mental Status Patient Orientation: Normal For Age Attachments: Oxygen, Humphreys Catheter, IV Transfers SCALE: Activities may be completed with or without assistive devices. 7-Mocqdmatoq-ydzubkd completes the activity by him/herself with no assistance from a helper. 5-Set-up or Clean-up Assistance-helper sets up or cleans up; patient completes activity. [place] assists only prior to or following the activity. 4-Supervision or Touching Assistance-helper provides verbal cues and/or touching/steadying and/or contact guard assistance as patient completes activity. Assistance may be provided throughout the activity or intermittently. 3-Partial/Moderate Assistance-helper does LESS THAN HALF the effort. [place] lifts, holds or supports trunk or limbs, but provides less than half the effort. 2-Substantial/Maximal Assistance-helper does MORE THAN HALF the effort. [place] lifts or holds trunk or limbs and provides more than half the effort. 8-Yvszawbfl-yzwovu does ALL the effort. Patient does none of the effort to complete the activity. Or, the assistance of 2 or more helpers is required for the patient to complete the activity. If activity was not attempted, code reason: 7-Patient Refused. 9-Not Applicable-not attempted and the patient did not perform the activity before the current illness, exacerbation or injury. 10-Not Attempted due to Environmental Limitations-(lack of equipment, weather restraints, etc.). 88-Not Attempted due to Medical Conditions or Safety Concerns. Lying to Sitting/Side of Bed(Q: 3 Sit to Stand (QC): 3 Chair/Bwm-hl-Hesra Xfer(QC): 3 Weight Bearing Full Weight Bearing Left Lower Extremity: Left Full Weight Bearing Gait Training Does the Patient Walk?: Yes Distance: 8' Gait Assistive Device: FWW shuffle gait sequence Assessment Patient up in recliner with needs met. PT to increase activity as tolerated by patient. PT Short Term Goals Short Term Goals Time Frame: Jan 14, 2020 Roll Left & Right: 4 Sit to lyin Lying to sitting on side of be: 4 Sit to stand: 4 Chair/tbl-sy-kllum transfer: 4 Toilet transfer: 4 Walk 10 feet: 4 Walk 50 feet with two turns: 4 Walk 150 feet: 4 PT Alf Goals Alf Goals PT Alf Goals Time Frame: Jan 24, 2020 Roll Left & Right (QC): 6 Sit to Lying (QC): 6 Lying-Sitting on Side/Bed(QC): 6 Sit to Stand (QC): 6 Chair/Mxo-we-Hiwhp Xfer(QC): 6 Toilet Transfer (QC): 6 Does the Patient Walk: Yes Walk 10 feet (QC): 6 Walk 50ft with 2 Turns (QC): 6 Walk 150 ft (QC): 6 PT Plan Treatment/Plan Treatment Plan: Continue Plan of Care Treatment Plan: Bed Mobility, Education, Functional Activity Dariana, Functional Strength, Gait, Safety, Therapeutic Exercise, Transfers Treatment Duration: Jan 24, 2020 Frequency: 6 times per week Estimated Hrs Per Day: .25 hour per day Patient and/or Family Agrees t: Yes Time/GCodes Time In: 1345 Time Out: 1403 Total Billed Treatment Time: 18 Total Billed Treatment 1 visit FA 18 min ANA SOLIS PT Jan 06, 2020 14:46
--- NOTE | 2020-01-06 14:46 | NUR ---
Initial visit; Strong pastoral rapport established with the patient over the past year at [facility]. The patient is Christianity and a member of [facility], and describes well-established, trusting relationship with Rev. Len Gar. The patient expressed that he feels satisfied at living a long a meaningful life, and that he does not desire medical treatments which could extend his life but lend no quality of living. He engaged in life review and shared that last night he explored his own forgiveness pain and found peace and resolve having spent time in prayer. The patient shared at the end of our visit that he felt emotionally and physically improved after getting to talk, and expressed gratitude for processing technician's time, empathy and respect.
[2020-01-06 16:03] VITALS: BP 105/67
[2020-01-07] VITALS: BP 151/84
[2020-01-07 06:26] LABS: CHLORIDE 102 MMOL/L (98-107); POTASSIUM 3.8 MMOL/L (3.6-5.0); SODIUM 135 MMOL/L (135-145)
[2020-01-07 06:27] LABS: CALCIUM 7.9 MG/DL (8.5-10.1)
[2020-01-07 06:28] LABS: GLUCOSE 201 MG/DL (70-105); TOTAL PROTEIN 6.4 GM/DL (6.4-8.2)
[2020-01-07 06:29] LABS: CARBON DIOXIDE 22 MMOL/L (21-32)
[2020-01-07 06:30] LABS: BILIRUBIN,TOTAL 0.4 MG/DL (0.1-1.0)
[2020-01-07 06:32] LABS: ALKALINE PHOSPHATASE 77 U/L (40-136); CREATININE SERUM 0.75 MG/DL (0.60-1.30); GFR ESTIMATED > 60
[2020-01-07 06:33] LABS: BUN/CREATININE RATIO 25
[2020-01-07 06:35] LABS: ALANINE AMINOTRANSFERASE 22 U/L (0-55)
[2020-01-07 08:00] VITALS: BP 121/72
[2020-01-07] MEDS ORDERED: ENOXAPARIN 80 MG/0.8 ML (LOVENOX) SYR SC SCH (09:00)
[2020-01-07] MEDS ORDERED: ENOXAPARIN 40 MG/0.4 ML (LOVENOX) SYR SC SCH (09:00)
[2020-01-07] MEDS: AZITHROMYCIN 250 MG TAB (ZITHROMAX) PO SCH (09:27)
[2020-01-07] MEDS: dexAMETHasone 6 MG TAB (DECADRON) PO SCH (09:27)
[2020-01-07] MEDS: OSELTAMIVIR 30 MG (TAMIFLU) CAPSULE PO SCH ×2 (09:28→20:36)
[2020-01-07] MEDS: ENOXAPARIN 40 MG/0.4 ML (LOVENOX) SYR SC SCH (09:28)
--- NOTE | 2020-01-07 10:41 | Occupational Ther Daily Note ---
OT Current Status-Daily Note Subjective Pt laying in bed, agreeable to OT tx, pt declined OOB activities at this time, stating he would like to stay in bed. ADL-Treatment Therapy Code Descriptions/Definitions Functional [place] Measure: 0=Not Assessed/NA 4=Minimal Assistance 1=Total Assistance 5=Supervision or Setup 2=Maximal Assistance 6=Modified [place] 3=Moderate Assistance 7=Complete IndependenceSCALE: Activities may be completed with or without assistive devices. 2-Pwwjdfidcw-dyuucaz completes the activity by him/herself with no assistance from a helper. 5-Set-up or Clean-up Assistance-helper sets up or cleans up; patient completes activity. [place] assists only prior to or following the activity. 4-Supervision or Touching Assistance-helper provides verbal cues and/or touching/steadying and/or contact guard assistance as patient completes activity . Assistance may be provided throughout the activity or intermittently. 3-Partial/Moderate Assistance-helper does LESS THAN HALF the effort. [place] lifts, holds or supports trunk or limbs, but provides less than half the effort. 2-Substantial/Maximal Assistance-helper does MORE THAN HALF the effort. [place] lifts or holds trunk or limbs and provides more than half the effort. 7-Yzvmefzwn-fefgev does ALL the effort. Patient does none of the effort to complete the activity. Or, the assistance of 2 or more helpers is required for the patient to complete the activity. If activity was not attempted, code reason: 7-Patient Refused. 9-Not Applicable-not attempted and the patient did not perform the activity before the current illness, exacerbation or injury. 10-Not Attempted due to Environmental Limitations-(lack of equipment, weather restraints, etc.). 88-Not Attempted due to Medical Conditions or Safety Concerns. Other Treatment Pt laying in bed, agreeable to OT tx. Pt talked at length about his life story, difficulty redirecting pt to tx. Pt agreeable to washing his face, but declined performing sponge bath. Pt able to wash face with increased time, set up assist) as pt continued to tell stories about his life experiences. Pt declined further ADLS at thist sury. Post OT tx, pt laying in bed, call light in reach and all needs met. Education OT Patient Education: Correct positioning, Modified ADL techniques, Progress toward Goal/Update tx plan, Purpose of tx/functional activities Teaching Recipient: Patient Teaching Methods: Discussion Response to Teaching: Verbalize Understanding OT Bi Developer Goals Bi Developer Goals Time Frame: Jan 23, 2020 Eating (QC): 6 Oral Hygiene (QC): 6 Toileting Hygiene (QC): 4 Shower/Bathe Self (QC): 4 Upper Body Dressing (QC): 5 Lower Body Dressing (QC): 4 On/Off Footwear (QC): 4 Additional Goals: 1-Demonstrate ADL Tasks, 2-Verbalize Understanding, 3- ImproveStrength/Dariana 1=Demonstrate adherence to instructed precautions during ADL tasks. 2=Patient will verbalize/demonstrate understanding of assistive devices/modifications for ADL. 3=Patient will improve strength/tolerance for activity to enable patient to perform ADL's. OT Education/Plan Problem List/Assessment Assessment: Decreased Activ Tolerance, Decreased UE Strength, Impaired I ADL's, Impaired Self-Care Skills Pt would benefit from OT in order to maximize L[facility] safe [facility] Discharge Recommendations Plan/Recommendations: Continue POC Treatment Plan/Plan of Care Patient would benefit from OT for education, treatment and training to promote independence in ADL's, mobility, safety and/or upper extremity function for ADL's. Plan of Care: ADL Retraining, Functional Mobility, UE Funct Exercise/Act Treatment Duration: Jan 23, 2020 Frequency: 5 times per week Estimated Hrs Per Day: .25 hour per day Agreement: Yes Rehab Potential: Fair Time/GCodes Start Time: 09:55 Stop Time: 10:15 Total Time Billed (hr/min): 20 Billed Treatment Time 1, ADL ADAM JETT OT Jan 07, 2020 10:41
[2020-01-07] MEDS: REMDESIVIR INJ 100 MG in NS (IVPB) 230 ML IV SCH (13:59)
[2020-01-07] MEDS: cefTRIAXone FOR IV USE 1,000 MG in WATER (STERILE) FOR INJECTION 10 ML IV SCH (14:01)
--- NOTE | 2020-01-07 14:09 | NUR ---
CM/SS visited with patient for discharge planning. Plan: Patient will return to [facility] at time of discharge. Possible discharge Monday 01/08. The patient reports he is doing pretty well today and has "no complaints". He stated a couple of days ago he was feeling pretty down but is getting better. VCV: CM/SS visited with the patient regarding discharge back to facility. At this time the patient believes that returning back is the best option. He is agreeable with [facility] to have therapies before transitioning back to the assisted living side. CM/SS informed Jo Ann at the [facility]. CM/SS will continue to follow.
--- NOTE | 2020-01-07 14:37 | Progress Note - Hospitalist ---
Subjective HPI/CC On Admission Date Seen by Provider: Jan 07, 2020 Time Seen by Provider: 14:34 Zay Black is an 89-year-old male who presented after a fall. He is a resident at [facility] and says he was walking with his walker and became lightheaded and fell. He did not pass out. He did not hit his head. He denies any fevers or chills. He denies any shortness of breath or cough. He denies any chest pain or palpitations. He denies any abdominal pain, nausea, vomiting, or diarrhea. He reports that he has been constipated. Subjective/Events-last exam Pt reports feeling much better today. No specific complaints. No longer requests hospice and in fact is inquiring about getting the vaccine for COVID when it is available. Objective Exam Vital Signs Vital Signs Date Time Temp Pulse Resp B/P (MAP) Pulse Ox O2 Delivery O2 Flow Rate FiO2 01/07/20 08:00 35.9 66 20 121/72 (88) 92 Nasal Cannula 2.00 Capillary Refill : Less Than 3 Seconds General Appearance: No Apparent Distress, Chronically ill, Thin Respiratory: Lungs Clear, No Accessory Muscle Use, Other (on 2lpm) Cardiovascular: Regular Rate, Rhythm, No Murmur Gastrointestinal: Normal Bowel Sounds, Non Tender, Soft Neurologic/Psychiatric: Alert, Oriented x3, Normal Mood/Affect Results/Procedures Lab Laboratory Tests 01/07/20 05:50 Patient resulted labs reviewed. Imaging: Reviewed Imaging Report Assessment/Plan Assessment and Plan Assess & Plan/Chief Complaint Acute respiratory failure due to COVID-19 and influenza A Possible superimposed bacterial pneumonia Elevated d-dimer COVID MARCO positive Influenza A positive Ddimer elevated >12 CT Chest without pulmonary embolism, bibasilar consolidation and mediastinal lymphadenopathy Dopplers negative prophylactic Lovenox Continue Rocephin and Azithromycin Continue Decadron Continue Remdesivir s/p 1 unit convalescent plasma Continue Tamiflu Lactic acidosis, resolved Viral sepsis, resolved Lymphopenia associated with COVID-19, resolved Diagnosis/Problems Diagnosis/Problems (1) Lymphopenia associated with COVID-19 Status: Acute (2) Acute respiratory failure due to COVID-19 Status: Acute (3) Pneumonia due to COVID-19 virus Status: Acute (4) PNA (pneumonia) Status: Acute (5) Advanced age Status: Chronic (6) Influenza A Status: Acute Clinical Quality Measures DVT/VTE Risk/Contraindication: Risk Factor Score Per Nursin RFS Level Per Nursing on Admit: 2=Moderate KIT BARRAZA MD Jan 07, 2020 14:37
--- NOTE | 2020-01-07 14:59 | Physical Therapy Daily Note ---
PT Daily Note-Current Subjective Patient in bed pre tx, agrees reluctantly to PT, has no complaints of pain. Appearance Patient in recliner post tx, has nurse call, phone, tray, all needs met. Mental Status Patient Orientation: Person, Place, Situation Attachments: Oxygen, Humphreys Catheter, IV Transfers SCALE: Activities may be completed with or without assistive devices. 7-Toytsmjgnc-rsncafd completes the activity by him/herself with no assistance from a helper. 5-Set-up or Clean-up Assistance-helper sets up or cleans up; patient completes activity. [place] assists only prior to or following the activity. 4-Supervision or Touching Assistance-helper provides verbal cues and/or touching/steadying and/or contact guard assistance as patient completes activity. Assistance may be provided throughout the activity or intermittently. 3-Partial/Moderate Assistance-helper does LESS THAN HALF the effort. [place] lifts, holds or supports trunk or limbs, but provides less than half the effort. 2-Substantial/Maximal Assistance-helper does MORE THAN HALF the effort. [place] lifts or holds trunk or limbs and provides more than half the effort. 2-Bzerbnyvm-xqtlwo does ALL the effort. Patient does none of the effort to complete the activity. Or, the assistance of 2 or more helpers is required for the patient to complete the activity. If activity was not attempted, code reason: 7-Patient Refused. 9-Not Applicable-not attempted and the patient did not perform the activity before the current illness, exacerbation or injury. 10-Not Attempted due to Environmental Limitations-(lack of equipment, weather restraints, etc.). 88-Not Attempted due to Medical Conditions or Safety Concerns. Roll Left & Right (QC): 6 Lying to Sitting/Side of Bed(Q: 6 Sit to Stand (QC): 4 Chair/Jim-bi-Bfdlw Xfer(QC): 4 Weight Bearing Full Weight Bearing Left Lower Extremity: Left Full Weight Bearing Gait Training Distance: 7' Gait Persons Needed: 4 Gait Assistive Device: FWW CGA Exercises Standing: Heel/toe raises, Mini squats Standing Reps: 10 Treatments bed mobility and transfers, ambulation, LE exercise Assessment Current Status: Fair Progress some SOB with activity PT Short Term Goals Short Term Goals Time Frame: Jan 14, 2020 Roll Left & Right: 4 Sit to lyin Lying to sitting on side of be: 4 Sit to stand: 4 Chair/htj-jn-tqmjs transfer: 4 Toilet transfer: 4 Walk 10 feet: 4 Walk 50 feet with two turns: 4 Walk 150 feet: 4 PT Fpc Goals Fpc Goals PT Fpc Goals Time Frame: Jan 24, 2020 Roll Left & Right (QC): 6 Sit to Lying (QC): 6 Lying-Sitting on Side/Bed(QC): 6 Sit to Stand (QC): 6 Chair/Rmc-hs-Hgdie Xfer(QC): 6 Toilet Transfer (QC): 6 Does the Patient Walk: Yes Walk 10 feet (QC): 6 Walk 50ft with 2 Turns (QC): 6 Walk 150 ft (QC): 6 PT Plan Problem List Problem List: Activity Tolerance, Functional Strength, Safety, Balance, Gait, Transfer, Bed Mobility Treatment/Plan Treatment Plan: Continue Plan of Care Treatment Plan: Bed Mobility, Education, Functional Activity Dariana, Functional Strength, Gait, Safety, Therapeutic Exercise, Transfers Treatment Duration: Jan 24, 2020 Frequency: 6 times per week Estimated Hrs Per Day: .25 hour per day Patient and/or Family Agrees t: Yes Safety Risks/Education Patient Education: Gait Training, Transfer Techniques, Correct Positioning, Safety Issues Teaching Recipient: Patient Teaching Methods: Demonstration, Discussion Response to Teaching: Reinforcement Needed Time/GCodes Time In: 1430 Time Out: 1450 Total Billed Treatment Time: 20 Total Billed Treatment 1 visit FA 20' ZAFAR ANDREWS PT Jan 07, 2020 14:59
[2020-01-07 15:57] VITALS: BP 131/73
[2020-01-07 23:44] VITALS: BP 176/89
[2020-01-08 07:50] LABS: ALBUMIN 3.2 GM/DL (3.2-4.5); CHLORIDE 99 MMOL/L (98-107); POTASSIUM 3.9 MMOL/L (3.6-5.0); SODIUM 134 MMOL/L (135-145)
[2020-01-08 07:51] LABS: CALCIUM 8.1 MG/DL (8.5-10.1)
[2020-01-08 07:52] LABS: GLUCOSE 233 MG/DL (70-105)
[2020-01-08 07:53] LABS: TOTAL PROTEIN 6.8 GM/DL (6.4-8.2)
[2020-01-08 07:54] LABS: BILIRUBIN,TOTAL 0.6 MG/DL (0.1-1.0); CARBON DIOXIDE 24 MMOL/L (21-32)
[2020-01-08 07:56] LABS: ALKALINE PHOSPHATASE 80 U/L (40-136); CREATININE SERUM 0.77 MG/DL (0.60-1.30); GFR ESTIMATED > 60
[2020-01-08 07:57] LABS: BUN/CREATININE RATIO 27
[2020-01-08 07:59] LABS: ALANINE AMINOTRANSFERASE 25 U/L (0-55)
[2020-01-08 08:00] VITALS: BP 176/82
[2020-01-08] MEDS: OSELTAMIVIR 30 MG (TAMIFLU) CAPSULE PO SCH (10:03)
[2020-01-08] MEDS: ENOXAPARIN 40 MG/0.4 ML (LOVENOX) SYR SC SCH (10:03)
[2020-01-08] MEDS: dexAMETHasone 6 MG TAB (DECADRON) PO SCH (10:03)
[2020-01-08] MEDS: AZITHROMYCIN 250 MG TAB (ZITHROMAX) PO SCH (10:03)
[2020-01-08 12:00] VITALS: BP 156/78
--- NOTE | 2020-01-08 12:47 | Physical Therapy Daily Note ---
PT Daily Note-Current Subjective Agrees to PT. Reports he thinks he will be discharging soon. Mental Status Patient Orientation: Person, Place, Time, Situation Transfers SCALE: Activities may be completed with or without assistive devices. 8-Ehtvxizilr-eszowrm completes the activity by him/herself with no assistance from a helper. 5-Set-up or Clean-up Assistance-helper sets up or cleans up; patient completes activity. [place] assists only prior to or following the activity. 4-Supervision or Touching Assistance-helper provides verbal cues and/or touching/steadying and/or contact guard assistance as patient completes activity. Assistance may be provided throughout the activity or intermittently. 3-Partial/Moderate Assistance-helper does LESS THAN HALF the effort. [place] lif ts, holds or supports trunk or limbs, but provides less than half the effort. 2-Substantial/Maximal Assistance-helper does MORE THAN HALF the effort. [place] lifts or holds trunk or limbs and provides more than half the effort. 6-Gqhvuyxst-vtfnew does ALL the effort. Patient does none of the effort to complete the activity. Or, the assistance of 2 or more helpers is required for the patient to complete the activity. If activity was not attempted, code reason: 7-Patient Refused. 9-Not Applicable-not attempted and the patient did not perform the activity before the current illness, exacerbation or injury. 10-Not Attempted due to Environmental Limitations-(lack of equipment, weather restraints, etc.). 88-Not Attempted due to Medical Conditions or Safety Concerns. Sit to Lying (QC): 4 Sit to Stand (QC): 4 Chair/Xjy-lb-Rhxfi Xfer(QC): 4 CGA with transfers for balance; cues for task initiation. Takes extra time to complete tasks. Follows cues well. Pt able to take 6-7 steps forward to transfer bed to chair. In chair, pt performed AP, LAQ and seated hip flexion x 10-15 each. Oxygen on throughout and post treatment. Pt up in chair with needs met. Weight Bearing Full Weight Bearing Left Lower Extremity: Left Full Weight Bearing Assessment Current Status: Good Progress Progressing with functional mobility. Cooperative and motivated. PT Short Term Goals Short Term Goals Time Frame: Jan 14, 2020 Roll Left & Right: 4 Sit to lyin Lying to sitting on side of be: 4 Sit to stand: 4 Chair/ihv-en-jthoz transfer: 4 Toilet transfer: 4 Walk 10 feet: 4 Walk 50 feet with two turns: 4 Walk 150 feet: 4 PT Fci Goals Fci Goals PT Solution Professional Goals Time Frame: Jan 24, 2020 Roll Left & Right (QC): 6 Sit to Lying (QC): 6 Lying-Sitting on Side/Bed(QC): 6 Sit to Stand (QC): 6 Chair/Ykl-uz-Uodka Xfer(QC): 6 Toilet Transfer (QC): 6 Does the Patient Walk: Yes Walk 10 feet (QC): 6 Walk 50ft with 2 Turns (QC): 6 Walk 150 ft (QC): 6 PT Plan Treatment/Plan Treatment Plan: Continue Plan of Care Treatment Plan: Bed Mobility, Education, Functional Activity Dariana, Functional Strength, Gait, Safety, Therapeutic Exercise, Transfers Treatment Duration: Jan 24, 2020 Frequency: 6 times per week Estimated Hrs Per Day: .25 hour per day Patient and/or Family Agrees t: Yes Safety Risks/Education Patient Education: Safety Issues Teaching Recipient: Patient Teaching Methods: Discussion Response to Teaching: Reinforcement Needed Discharge Recommendations Therapy Discharge Recommendati: Post Acute PT Time/GCodes Time In: 1150 Time Out: 1215 Total Billed Treatment Time: 25 Total Billed Treatment visit FA 15 EX 10 JOSE STEINER PT Jan 08, 2020 12:47
--- NOTE | 2020-01-08 14:24 | Progress Note - Hospitalist ---
Subjective HPI/CC On Admission Date Seen by Provider: Jan 08, 2020 Time Seen by Provider: 14:20 Zay Black is an 89-year-old male who presented after a fall. He is a resident at [facility] and says he was walking with his walker and became lightheaded and fell. He did not pass out. He did not hit his head. He denies any fevers or chills. He denies any shortness of breath or cough. He denies any chest pain or palpitations. He denies any abdominal pain, nausea, vomiting, or diarrhea. He reports that he has been constipated. Subjective/Events-last exam Pt reports not feeling well and hoping to . He even asks me if I can help him . I informed him that this is not legal and not something I would or could do. He states he prays this is his last day on earth. We discussed that he does not have a hospice qualifying diagnosis at this time but could pursue a bridge program. I also spoke with his daughter regarding the patient's wishes. Daughter plans to call patient and see what his goals are as they change daily. Objective Exam Vital Signs Vital Signs Date Time Temp Pulse Resp B/P (MAP) Pulse Ox O2 Delivery O2 Flow Rate FiO2 01/08/20 12:00 36.3 84 20 156/78 (104) 90 Nasal Cannula 3.00 Capillary Refill : Less Than 3 Seconds General Appearance: No Apparent Distress, Chronically ill, Thin Respiratory: Lungs Clear, No Accessory Muscle Use, Other (on 2lpm) Cardiovascular: Regular Rate, Rhythm, No Murmur Gastrointestinal: Normal Bowel Sounds, Non Tender, Soft Neurologic/Psychiatric: Alert, Oriented x3 Results/Procedures Lab Laboratory Tests 01/08/20 06:47 Patient resulted labs reviewed. Imaging: Reviewed Imaging Report Assessment/Plan Assessment and Plan Assess & Plan/Chief Complaint Acute respiratory failure due to COVID-19 and influenza A Possible superimposed bacterial pneumonia Elevated d-dimer COVID MARCO positive Influenza A positive Ddimer elevated >12 CT Chest without pulmonary embolism, bibasilar consolidation and mediastinal lymphadenopathy Dopplers negative prophylactic Lovenox Complete Rocephin and Azithromycin today Continue Decadron s/p 1 unit convalescent plasma and remdesivir Complete Tamiflu today Lactic acidosis, resolved Viral sepsis, resolved Lymphopenia associated with COVID-19, resolved Diagnosis/Problems Diagnosis/Problems (1) Lymphopenia associated with COVID-19 Status: Acute (2) Acute respiratory failure due to COVID-19 Status: Acute (3) Pneumonia due to COVID-19 virus Status: Acute (4) PNA (pneumonia) Status: Acute (5) Advanced age Status: Chronic (6) Influenza A Status: Acute Clinical Quality Measures DVT/VTE Risk/Contraindication: Risk Factor Score Per Nursin RFS Level Per Nursing on Admit: 2=Moderate KIT BARRAZA MD Jan 08, 2020 14:24
--- NOTE | 2020-01-08 15:19 | NUR ---
CM/SS follow up. Updated plan: The patient will discharge to [facility] tomorrow 01/08 skilled at 1:00 p.m. [facility]: The patient will be picked up at 1:00 p.m. CM/SS visited with Jo Ann regarding delayed discharge. She verbalized understanding. CM/SS asked Jo Ann to bring clothes at time of discharge. [facility] Program: CM/SS contacted the agency and spoke with Tammy. Tammy reports the main contact is Veronica ([phone]) in [place]. CM/SS spoke with Veronica and made referral. Summary: The physician reported the patient had changed his plans for discharge when she visited him this morning. The patient goes back and forth on what he would like to do. The physician spoke with the patient's daughter Jenniffer to discuss discharge plans and the need for further conversation for clarification. CM/SS contacted the patient via room phone. The patient appeared to be anxious about discharging. The patient stated that we are going to "evict" him and he will have no where to go. The patient was concerned about his clothes, belongings, and payment during his time in the hospital. CM/SS talked at length with the patient to help reassure him that he would be going back to his home and he will have all of his belongings with him. CM/SS contacted Jenniffer the patient's daughter. She states the patient expressed all of the same concerns to her and it was a very similar conversation. CM/SS will continue to visit.
--- NOTE | 2020-01-08 15:52 | Occupational Ther Daily Note ---
OT Current Status-Daily Note Subjective Pt. reports no pain but states that he feels weak. Mental Status/Objective Patient Orientation: Person, Place Attachments: Humphreys Catheter ADL-Treatment Therapy Code Descriptions/Definitions Functional [place] Measure: 0=Not Assessed/NA 4=Minimal Assistance 1=Total Assistance 5=Supervision or Setup 2=Maximal Assistance 6=Modified [place] 3=Moderate Assistance 7=Complete IndependenceSCALE: Activities may be completed with or without assistive devices. 7-Zgmhekmntp-igyooae completes the activity by him/herself with no assistance from a helper. 5-Set-up or Clean-up Assistance-helper sets up or cleans up; patient completes activity. [place] assists only prior to or following the activity. 4-Supervision or Touching Assistance-helper provides verbal cues and/or jaun winsome/steadying and/or contact guard assistance as patient completes activity. Assistance may be provided throughout the activity or intermittently. 3-Partial/Moderate Assistance-helper does LESS THAN HALF the effort. [place] lifts, holds or supports trunk or limbs, but provides less than half the effort. 2-Substantial/Maximal Assistance-helper does MORE THAN HALF the effort. [place] lifts or holds trunk or limbs and provides more than half the effort. 1-Mglwbbizk-bjssho does ALL the effort. Patient does none of the effort to complete the activity. Or, the assistance of 2 or more helpers is required for the patient to complete the activity. If activity was not attempted, code reason: 7-Patient Refused. 9-Not Applicable-not attempted and the patient did not perform the activity before the current illness, exacerbation or injury. 10-Not Attempted due to Environmental Limitations-(lack of equipment, weather restraints, etc.). 88-Not Attempted due to Medical Conditions or Safety Concerns. Other Treatment Pt. agrees to work with OT. Pt. stands at chair side with CGA for sit-stand. Pt. stands in place approximately 8 minutes, and then works on weight shifts, back and forth another 8 minutes. Pt. engaged in conversation regarding life and family while standing. Completed this task to work on increased overall strength and endurance. Pt. encouraged to stand tall and open chest. Encouraged to breathe. Pt. states, "well I did much better than I thought." Pt. is encouraged that he is doing well physically. Pt. sits in chair and all needs are met. Education OT Patient Education: Correct positioning, Exercise program, Progress toward Goal/Update tx plan, Purpose of tx/functional activities, Reviewed precautions, Rehab process, Transfer techniques Teaching Recipient: Patient Teaching Methods: Demonstration, Discussion Response to Teaching: Verbalize Understanding, Return Demonstration OT Snf Goals Snf Goals Time Frame: Jan 23, 2020 Eating (QC): 6 Oral Hygiene (QC): 6 Toileting Hygiene (QC): 4 Shower/Bathe Self (QC): 4 Upper Body Dressing (QC): 5 Lower Body Dressing (QC): 4 On/Off Footwear (QC): 4 Additional Goals: 1-Demonstrate ADL Tasks, 2-Verbalize Understanding, 3- ImproveStrength/Dariana 1=Demonstrate adherence to instructed precautions during ADL tasks. 2=Patient will verbalize/demonstrate understanding of assistive devices/modifications for ADL. 3=Patient will improve strength/tolerance for activity to enable patient to perform ADL's. OT Education/Plan Problem List/Assessment Assessment: Decreased Activ Tolerance, Impaired I ADL's, Impaired Self-Care Skills Pt would benefit from OT in order to maximize LOF for safe return to [facility]. Discharge Recommendations Plan/Recommendations: Continue POC Therapy Discharge Recommendati: Post Acute OT Treatment Plan/Plan of Care Treatment,Training & Education: Yes Patient would benefit from OT for education, treatment and training to promote independence in ADL's, mobility, safety and/or upper extremity function for ADL's. Plan of Care: ADL Retraining, Functional Mobility, UE Funct Exercise/Act Treatment Duration: Jan 23, 2020 Frequency: 5 times per week Estimated Hrs Per Day: .25 hour per day Agreement: Yes Rehab Potential: Fair Time/GCodes Start Time: 14:30 Stop Time: 15:00 Total Time Billed (hr/min): 30 Billed Treatment Time 1, FA x 2 SHOAIB KEE OT Jan 08, 2020 15:52
[2020-01-08 16:00] VITALS: BP 138/80
--- NOTE | 2020-01-08 16:37 | NUR ---
pt is unable to walk very far. pt walked from chair to bed with a walker on RA and pt SpO2 dropped to 84%. pt was placed on 2LNC at this time with adequate SpO2 Addendum: 01/08/20 at 1638 by JONNA ESPANA RT Amended: Links added.
[2020-01-09 00:15] VITALS: BP 162/79
[2020-01-09] MEDS: dexAMETHasone 6 MG TAB (DECADRON) PO SCH (09:43)
[2020-01-09] MEDS: ENOXAPARIN 40 MG/0.4 ML (LOVENOX) SYR SC SCH (09:44)
--- NOTE | 2020-01-09 10:26 | Discharge Inst-Skilled Nursing ---
Discharge Inst-Skilled NF Chief Complaint Zay Black is an 89-year-old male who presented after a fall. He is a resident at [facility] and says he was walking with his walker and became lightheaded and fell. He did not pass out. He did not hit his head. He denies any fevers or chills. He denies any shortness of breath or cough. He d enies any chest pain or palpitations. He denies any abdominal pain, nausea, vomiting, or diarrhea. He reports that he has been constipated. Consult/Follow Up/Orders Follow Up Appt.: [address] Mansfield Skilled NF Admit to: [facility] Certification (SNF) I certify that SNF services are required to be given on an inpatient basis because of the above named patient's need for long-term care on a continuing basis for the conditions(s) for which he/she was receiving inpatient hospital services prior to his/her transfer to the SNF. [facility] Facility Order: Nursing Services, Plastics Engineering Teacher-Evaluate & Treat, Physical Therapy-Evaluate & Treat Oxygen Delivery Method: Nasal Cannula Oxygen Flow Rate L/min (Range): 2 lpm Discharge Diet: No Restrictions Daily Activity as Tolerated: Yes Resuscitation Status: Do Not Resuscitate New & Resume Previous Orders Kit Valdes Jan 09, 2020 06:54 KIT VALDES MD Jan 09, 2020 06:55
[2020-01-09] MEDS ORDERED: DEXA6TAB PO (10:39)
--- NOTE | 2020-01-09 10:42 | Discharge Summary ---
Diagnosis/Chief Complaint Date of Admission Jan 03, 2020 at 09:41 Date of Discharge Discharge Date: Jan 09, 2020 Admission Diagnosis acute respiratory failure due to COVID-19 and influenza A Primary Care Ruth Mansfield MD Discharge Diagnosis (1) Lymphopenia associated with COVID-19 Status: Acute (2) Acute respiratory failure due to COVID-19 Status: Acute (3) Pneumonia due to COVID-19 virus Status: Acute (4) PNA (pneumonia) Status: Acute (5) Advanced age Status: Chronic (6) Influenza A Status: Acute Discharge Summary Discharge Physical Exam Allergies: Coded Allergies: No Known Drug Allergies (Unverified , 07/30/12) Vitals & I&Os Vital Signs Date Time Temp Pulse Resp B/P (MAP) Pulse Ox O2 Delivery O2 Flow Rate FiO2 01/09/20 10:26 Nasal Cannula 01/09/20 00:15 36.5 62 18 162/79 (106) 96 2.00 Hospital Course Labs (last 24 hrs) Microbiology 01/03/20 Blood Culture - Preliminary, Resulted Coryneform bacteria See Comments 01/03/20 Urine Culture - Final, Complete NO GROWTH 01/03/20 Influenza Types A,B Antigen (QUENTIN) - Final, Complete Patient resulted labs reviewed. Imaging: Reviewed Imaging Report Discharge Home Medications: Active Scripts Active Dexamethasone 6 Mg Tablet 6 Mg PO DAILY Reported Ferrous Sulfate 325 Mg Tablet 325 Mg PO BID Daily Yannick with Iron (Multivitamins with Iron) 1 Each Tablet 1 Each PO DAILY Senna-S Tablet (Sennosides/Docusate Sodium) 1 Each Tablet 1 Each PO BID PRN Tylenol (Acetaminophen) 325 Mg Capsule 650 Mg PO Q4H PRN Albuterol Sulfate 2.5 Mg/0.5 Ml Vial.neb 2.5 Mg INH Q4H PRN Metformin HCl 500 Mg Tablet 250 Mg PO BID TAKES (500MG) TAB Aspirin 81 Mg Tab.chew 81 Mg PO DAILY Instructions to patient/family Please see electronic discharge instructions given to patient. Clinical Quality Measures DVT/VTE Risk/Contraindication: Risk Factor Score Per Nursin RFS Level Per Nursing on Admit: 2=Moderate KIT BARRAZA MD Jan 09, 2020 10:42
--- NOTE | 2020-01-09 12:16 | NUR ---
CM/SS finalized discharge. Plan: Patient is discharging today 01/08 to [facility]. supplier specialist time of 1:00 p.m. VCV: VEE/SS faxed finalized skilled discharge orders to the facility. VEE/SS spoke with Jo Ann to inform her of orders being sent. CM/SS contacted the patient's daughter Jenniffer to give an update. She verbalized understanding. and had no further questions. No further needs at this time.
--- NOTE | 2020-01-09 12:34 | Occupational Ther Daily Note ---
OT Current Status-Daily Note Subjective Pt alert/ oriented. Agrees to tx. Pt states slight ache in pec muscles. Pt denies SOB at this time. Mental Status/Objective Patient Orientation: Person, Place, Situation Attachments: Humphreys Catheter, Oxygen ADL-Treatment Therapy Code Descriptions/Definitions Functional [place] Measure: 0=Not Assessed/NA 4=Minimal Assistance 1=Total Assistance 5=Supervision or Setup 2=Maximal Assistance 6=Modified [place] 3=Moderate Assistance 7=Complete IndependenceSCALE: Activities may be completed with or without assistive devices. 8-Cbjanpruuv-hhqyihv completes the activity by him/herself with no assistance from a helper. 5-Set-up or Clean-up Assistance-helper sets up or cleans up; patient completes activity. [place] assists only prior to or following the activity. 4-Supervision or Touching Assistance-helper provides verbal cues and/or touching/steadying and/or contact guard assistance as patient completes activity. Assistance may be provided throughout the activity or intermittently. 3-Partial/Moderate Assistance-helper does LESS THAN HALF the effort. [place] lifts, holds or supports trunk or limbs, but provides less than half the effort. 2-Substantial/Maximal Assistance-helper does MORE THAN HALF the effort. [place] lifts or holds trunk or limbs and provides more than half the effort. 6-Bcwnabukl-citbtd does ALL the effort. Patient does none of the effort to complete the activity. Or, the assistance of 2 or more helpers is required for the patient to complete the activity. If activity was not attempted, code reason: 7-Patient Refused. 9-Not Applicable-not attempted and the patient did not perform the activity before the current illness, exacerbation or injury. 10-Not Attempted due to Environmental Limitations-(lack of equipment, weather restraints, etc.). 88-Not Attempted due to Medical Conditions or Safety Concerns. Eating (QC): 6 Other Treatment Pt completes supine to sit EOB with SBA. Reaches EOB with min A. Pt sit to stand from raised bed with CGA. Ambulates to recliner with CGA. Stands for 3 minutes, completing balance tasks with UE's supported on walker one at a time. No LOB noted. Returns to sit. Pt completes UE theraband ex (10 reps bilaterally) with education throughout. Completes the following: bicep curls, tricep extensions, abduction, shoulder flexion. Pt requires rest breaks intermittently. Pt left in room with all needs met, call light in reach. Education OT Patient Education: Correct positioning, Exercise program, Home exercise program, Modified ADL techniques, Purpose of tx/functional activities, Safety issues, Transfer techniques Teaching Recipient: Patient Teaching Methods: Demonstration, Discussion Response to Teaching: Verbalize Understanding, Return Demonstration, Reinforcement Needed OT Jail Goals Safety Supervisor Goals Time Frame: Jan 23, 2020 Eating (QC): 6 Oral Hygiene (QC): 6 Toileting Hygiene (QC): 4 Shower/Bathe Self (QC): 4 Upper Body Dressing (QC): 5 Lower Body Dressing (QC): 4 On/Off Footwear (QC): 4 Additional Goals: 1-Demonstrate ADL Tasks, 2-Verbalize Understanding, 3- ImproveStrength/Dariana 1=Demonstrate adherence to instructed precautions during ADL tasks. 2=Patient will verbalize/demonstrate understanding of assistive devices/mod ifications for ADL. 3=Patient will improve strength/tolerance for activity to enable patient to perform ADL's. OT Education/Plan Problem List/Assessment Assessment: Decreased Activ Tolerance, Decreased UE Strength, Dependent Transfers, Impaired Bed Mobility, Impaired Funct Balance, Impaired I ADL's, Impaired Self-Care Skills Pt would benefit from OT in order to maximize LOF for safe return to [facility]IDENTIAL. Discharge Recommendations Plan/Recommendations: Continue POC Therapy Discharge Recommendati: Assisted Living, Home & Family, Post Acute OT Treatment Plan/Plan of Care Patient would benefit from OT for education, treatment and training to promote independence in ADL's, mobility, safety and/or upper extremity function for ADL's. Plan of Care: ADL Retraining, Functional Mobility, UE Funct Exercise/Act Treatment Duration: Jan 23, 2020 Frequency: 5 times per week Estimated Hrs Per Day: .25 hour per day Agreement: Yes Rehab Potential: Fair Time/GCodes Start Time: 11:18 Stop Time: 11:35 Total Time Billed (hr/min): 17 Billed Treatment Time 1, EX (17) ANA MARTINEZ OTR Jan 09, 2020 12:34
== END 2020-01-09 14:30 | DRG 871 ==
LOC: EDUNIT# 07:46 → ER 07:47 → 4TH 09:41
PROVIDERS: ADMIT Internal Medicine; ATTEND Internal Medicine
PROC: XW033E5 Introduction of Remdesivir Anti-infective into Peripheral Vein, Percutaneous Approach, New Technology Group 5 (ICD-10-PCS; principal; 2020-01-03)
PROC: XW13325 Transfusion of Convalescent Plasma (Nonautologous) into Peripheral Vein, Percutaneous Approach, New Technology Group 5 (ICD-10-PCS; 2020-01-03)
DX: A41.89 Other specified sepsis (principal); U07.1 COVID-19; J12.89 Other viral pneumonia; J15.9 Unspecified bacterial pneumonia; J96.00 Acute respiratory failure, unspecified whether with hypoxia or hypercapnia; J10.08 Influenza due to other identified influenza virus with other specified pneumonia; E87.2 Acidosis; Z66 Do not resuscitate; R79.1 Abnormal coagulation profile; R59.0 Localized enlarged lymph nodes; G47.34 Idiopathic sleep related nonobstructive alveolar hypoventilation; K40.90 Unilateral inguinal hernia, without obstruction or gangrene, not specified as recurrent; K59.00 Constipation, unspecified; R39.198 Other difficulties with micturition; Z91.81 History of falling
CPT/HCPCS: 36415; 51702; 70450; 71045; 71275; 80053; 81000; 83605; 84145; 84484; 85025; 85379; 85610; 85730; 86141; 86900; 86901; 87040; 87088; 87635; 87804; 93005; 93970; 94760; 94761

== ENCOUNTER 2020-02-02 17:13 | Emergency (ER) | payer MEDICARE, BC ==
[~2020-02-02] VITALS: Ht 182.8 cm; Wt 70.7 kg
[~2020-02-02 17:13] MED LIST changes: +ACET325C7 PO; +ALB0.5V INH; +ALBU2.5V4 INH; +DEXA6TAB PO; +FERR325T18 PO; +FERR325T5 PO; +METF-397 PO; +MULT-570 PO; +MULT-974 PO; +SENN-109 PO; +SENN-234 PO
[2020-02-02 18:42] LABS: BILIRUBIN,URINE 2+ (NEGATIVE); CLARITY,URINE CLOUDY; COLOR,URINE BROWN; GLUCOSE, URINE (UA) NEGATIVE (NEGATIVE); KETONES,URINE NEGATIVE (NEGATIVE); LEUKOCYTE ESTERASE ,URINE 2+ (NEGATIVE); NITRITE,URINE POSITIVE (NEGATIVE); PH,URINE 6.5 (5-9); PROTEIN,URINE 3+ (NEGATIVE)
[2020-02-02 18:53] LABS: RBC,URINE >100 /HPF
[2020-02-02 18:54] LABS: BACTERIA,URINE TRACE /HPF; WBC,URINE 50-100 /HPF
[2020-02-02] MEDS ORDERED: CEPH-507 PO (19:12)
--- NOTE | 2020-02-02 19:12 | ED GU-Male ---
General Chief Complaint: Catheter/Drain/Tube Problems Stated Complaint: CATH ISSUES Nursing Triage Note: Pt to ED via EMS for urinary catheter issues. Pt reports burning and stinging and that catheter won't drain. Pt reports urinating around catheter. Source: patient Exam Limitations: no limitations History of Present Illness Date Seen by Provider: Feb 02, 2020 Time Seen by Provider: 17:57 Initial Comments This 89-year-old gentleman presents to the ER from the alf with a dysfunctional Humphreys catheter. He was admitted the end of December with COVID-19. A Humphreys catheter was placed during that admission. His understanding is that it was meant to be a temporary catheter. He reports having a follow-up visit with Dr. Shannon after discharge and it was recommended that the catheter remain. Over the last few days the catheter has not been draining properly. He leaks urine around the catheter. He has pain with urination. He has stopped drinking out of fear of the pain with urination. His urine is very dark. He request the catheter be removed and remain out. 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 Allergies and Home Medications Allergies Coded Allergies: No Known Drug Allergies (Unverified , 07/30/12) Home Medications Acetaminophen 325 Mg Capsule, 650 MG PO Q4H PRN for PAIN-MILD (1-4) OR TEMPATURE, (Reported) Albuterol Sulfate 2.5 Mg/0.5 Ml Vial.neb, 2.5 MG INH Q4H PRN for SHORTNESS OF BREATH, (Reported) Aspirin 81 Mg Tab.chew, 81 MG PO DAILY, (Reported) Cephalexin 500 Mg Capsule, 500 MG PO TID Prescribed by: LINH MONTGOMERY on 02/02/201911 Dexamethasone 6 Mg Tablet, 6 MG PO DAILY Prescribed by: KIT BARRAZA on 01/09/20 1039 Ferrous Sulfate 325 Mg Tablet, 325 MG PO BID, (Reported) Metformin HCl 500 Mg Tablet, 250 MG PO BID, (Reported) TAKES (500MG) TAB Multivitamins with Iron 1 Each Tablet, 1 EACH PO DAILY, (Reported) Sennosides/Docusate Sodium 1 Each Tablet, 1 EACH PO BID PRN for CONSTIPATION-6TH LINE, (Reported) Patient Home Medication List Home Medication List Reviewed: Yes Review of Systems Review of Systems Constitutional: no symptoms reported EENTM: no symptoms reported Respiratory: no symptoms reported Cardiovascular: no symptoms reported Gastrointestinal: see HPI Genitourinary: see HPI Psychiatric/Neurological: No Symptoms Reported Past Bjevcfy-Tksciz-Smrrzs Hx Past Med/Social Hx: Reviewed Nursing Past Med/Soc Hx Patient Social History Alcohol Use: Denies Use Recreational Drug Use: Yes Smoking Status: Former Smoker Former Smoker, Quit: Feb 06, 2004 2nd Hand Smoke Exposure: No Recent Foreign Travel: No Contact w/Someone Who Travel: No Recent Infectious Disease Expo: No Immunizations Up To Date Date of Pneumonia Vaccine: Nov 26, 2015 Date of Influenza Vaccine: Nov 18, 2019 Seasonal Allergies Seasonal Allergies: No Past Medical History Surgeries: Yes (left ankle surgery) Respiratory: Yes (nocturnal hypoxia, history COVID-19) Cardiac: No Neurological: No Genitourinary: No Gastrointestinal: Yes (lg hernia in the scotum, states never bothered him, increases with lifting) Musculoskeletal: No Endocrine: No HEENT: No Cancer: No Psychosocial: No Integumentary: No Family Medical History Patient reports no known family medical history. No Pertinent Family Hx Physical Exam Vital Signs Vital Signs - First Documented 02/02/20 17:13 Temp 36.1 Pulse 81 Resp 20 B/P (MAP) 115/83 (94) Pulse Ox 94 O2 Delivery Room Air Capillary Refill : Less Than 3 Seconds Height, Weight, BMI Height: 5'11.00" Weight: 157lbs. oz. 71.010123ik; 21.00 BMI Method:Stated General Appearance: WD/WN, no apparent distress HEENT: normal ENT inspection Cardiovascular: regular rate, rhythm, no edema Respiratory: lungs clear, normal breath sounds, no respiratory distress Gastrointestinal: soft, other (Hernia in the left lower inguinal region, nontender) Male: other (Humphreys catheter with urine leaking around it) Neurologic/Psychiatric: tie fastener II-XII nml as tested, no motor/sensory deficits, alert, normal mood/affect, oriented x 3 Skin: normal color, warm/dry Progress/Results/Core Measures Suspected Sepsis Recent Fever Within 48 Hours: No Infection Criteria Present: None New/Unexplained Altered Menta: No Sepsis Screen: No Definite Risk SIRS Temperature: Pulse: 81 Respiratory Rate: 20 Blood Pressure 115 /83 Mean: 94 Results/Orders Lab Results Laboratory Tests Test 02/02/20 08:34 Range/Units Urine Color BROWN H Urine Clarity CLOUDY Urine pH 6.5 5-9 Urine Specific Dix 1.025 H 1.016-1.022 Urine Protein 3+ H NEGATIVE Urine Glucose (UA) NEGATIVE NEGATIVE Urine Ketones NEGATIVE NEGATIVE Urine Nitrite POSITIVE H NEGATIVE Urine Bilirubin 2+ H NEGATIVE Urine Urobilinogen 2.0 < = 1.0 MG/DL Urine Leukocyte Esterase 2+ H NEGATIVE Urine RBC (Auto) 3+ H NEGATIVE Urine RBC >100 H /HPF Urine WBC 50-100 H /HPF Urine Squamous Epithelial Cells NONE /HPF Urine Crystals NONE /LPF Urine Bacteria TRACE /HPF Urine Casts NONE /LPF Urine Mucus NEGATIVE /LPF Urine Culture Indicated YES My Orders Orders - LINH MILLER MD Ua Culture If Indicated (02/02/20 17:57) Urine Culture (02/02/20 08:34) Ceftriaxone For Im Use (Rocephin For Im (02/02/20 19:15) Lidocaine 1% Inj 20 Ml (Xylocaine 1% Inj (02/02/20 19:15) Medications Given in ED Current Medications Medications Dose Ordered Sig/Rachel Route Start Time Stop Time Status Last Admin Dose Admin Ceftriaxone Sodium 1,000 mg ONCE ONCE IM 02/02/20 19:15 02/02/20 19:16 DC 02/02/20 19:16 1,000 MG Lidocaine HCl 2.1 ml ONCE ONCE INJ 02/02/20 19:15 02/02/20 19:16 DC 02/02/20 19:16 2.1 ML Vital Signs/I&O 02/02/20 02/02/20 17:13 19:55 Temp 36.1 36.1 Pulse 81 79 Resp 20 20 B/P (MAP) 115/83 (94) 117/87 (94) Pulse Ox 94 94 O2 Delivery Room Air Room Air Capillary Refill : Less Than 3 Seconds Blood Pressure Mean: 94 Progress Note : Progress Note Humphreys catheter was removed. Patient was able to void after removal. UA demonstrated urinary tract infection, and Rocephin was administered. At patient's request the Humphreys catheter remained out. I did discuss the situation with Dr. Mansfield who was agreeable to plan of action. Departure Impression Primary Impression: Urinary tract infection Qualified Codes: N39.0 - Urinary tract infection, site not specified; R31.9 - Hematuria, unspecified Additional Impression: Malfunction of Humphreys catheter Qualified Codes: T83.011D - Breakdown (mechanical) of indwelling urethral catheter, subsequent encounter Disposition: 01 HOME, SELF-CARE Condition: Improved Departure-Patient Inst. Decision time for Depature: 19:10 Referrals: TAB MANSFIELD MD (PCP/Family) Primary Care Physician Patient Instructions: Urinary Tract Infection, Adult (DC) Add. Discharge Instructions: Drink plenty of water. Complete your antibiotic as prescribed. Follow-up with your primary care provider and/or Dr. Stevenson after 48 hours to review urine culture. Call or return to care if you have worsening symptoms or more urinary difficulty. All discharge instructions reviewed with patient and/or family. Voiced understanding. Scripts Cephalexin (Keflex) 500 Mg Capsule 500 MG PO TID, #20 CAP Prov: LINH MILLER MD 02/02/20 Copy Copies To 1: TAB MANSFIELD MD, JOSHUA T MD Feb 02, 2020 19:12
--- NOTE | 2020-02-02 19:14 | NUR ---
Spoke with nurse Sree and via [facility], [place]. He will attempt to find someone to come get patient.
[2020-02-02] MEDS ORDERED: cefTRIAXone 1,000 MG/2.86 ml vial (IM ONLY) IM ONE (19:15)
[2020-02-02] MEDS ORDERED: LIDOCAINE 1% INJ 20 ML 20 ML VIAL INJ ONE (19:15)
[2020-02-02 19:55] VITALS: BP 117/87
== END 2020-02-02 19:54 | disposition home or self-care (01) ==
LOC: EDUNIT# 17:13 → ER 17:14
DX: N39.0 Urinary tract infection, site not specified (principal); T83.091A Other mechanical complication of indwelling urethral catheter, initial encounter; Z87.891 Personal history of nicotine dependence; Z79.82 Long term (current) use of aspirin
CPT/HCPCS: 81000; 87077; 87088; 99284

== ENCOUNTER 2020-07-05 13:34 | Inpatient (IN) | payer MEDICARE, BC ==
[~2020-07-05] VITALS: Ht 180 cm; Wt 62.9 kg
[~2020-07-05 13:34] MED LIST changes: +CEPH-507 PO
[2020-07-05] MEDS ORDERED: ACETAMINOPHEN 500 MG TAB (TYLENOL) PO ONE (13:45)
--- NOTE | 2020-07-05 13:45 | ED Abdominal Pain ---
General Chief Complaint: Abdominal/GI Problems Stated Complaint: SUPRAPUBIC PAIN Source of Information: Patient Exam Limitations: No Limitations History of Present Illness Date Seen by Provider: July 05, 2020 Time Seen by Provider: 13:43 Initial Comments To ER by EMS from [facility] with reports of suprapubic pain. This began earlier today no nausea no vomiting no fever no chills. He is oxygen dependent at 3 L per nasal cannula all the time. Timing/Duration: 1-2 Days Severity/Quality: Moderate Location: Suprapubic Radiation: No Radiation Activities at Onset: None Allergies and Home Medications Allergies Coded Allergies: No Known Drug Allergies (Unverified , 07/30/12) Home Medications Acetaminophen 500 Mg Tablet, 1,000 MG PO Q8H PRN for PAIN-MILD (1-4) OR TEMPATU RE, (Reported) Last Action: Reviewed Albuterol Sulfate 2.5 Mg/0.5 Ml Vial.neb, 2.5 MG INH Q4H PRN for SHORTNESS OF BREATH, (Reported) Last Action: Reviewed Aspirin 81 Mg Tab.chew, 81 MG PO DAILY, (Reported) Last Action: Reviewed Ferrous Sulfate 325 Mg Tablet, 325 MG PO BID, (Reported) Last Action: Reviewed Ibuprofen 200 Mg Tablet, 400 MG PO Q8H PRN for PAIN-MILD (1-4), (Reported) Last Action: Reviewed Lactulose 20 Gm/30 Ml Solution, 30 ML PO DAILY PRN for CONSTIPATION-3RD LINE, (Reported) Last Action: Continued Metformin HCl 500 Mg Tablet, 250 MG PO BID, (Reported) TAKES (500MG) TAB Last Action: Continued Multivitamins with Iron 1 Each Tablet, 1 EACH PO DAILY, (Reported) Last Action: Converted Sennosides/Docusate Sodium 1 Each Tablet, 1 EACH PO BID PRN for CONSTIPATION-6TH LINE, (Reported) Last Action: Continued Patient Home Medication List Home Medication List Reviewed: Yes Review of Systems Review of Systems Constitutional: see HPI EENTM: No Symptoms Reported Respiratory: No Symptoms Reported Cardiovascular: No Symptoms Reported Gastrointestinal: See HPI, Abdominal Pain Genitourinary: No Symptoms Reported Musculoskeletal: no symptoms reported Skin: no symptoms reported Psychiatric/Neurological: No Symptoms Reported Endocrine: No Symptoms Reported Hematologic/Lymphatic: No Symptoms Reported Past Rznhast-Pcyxng-Ixbobu Hx Patient Social History Former Smoker, Quit: Feb 06, 2004 2nd Hand Smoke Exposure: No Immunizations Up To Date Date of Pneumonia Vaccine: Nov 26, 2015 Date of Influenza Vaccine: Nov 18, 2019 Seasonal Allergies Seasonal Allergies: No Past Medical History Surgeries: Yes (left ankle surgery) Respiratory: Yes (nocturnal hypoxia, history COVID-19) Cardiac: No Neurological: No Genitourinary: No Gastrointestinal: Yes (lg hernia in the scotum, states never bothered him, increases with lifting) Musculoskeletal: No Endocrine: No HEENT: No Cancer: No Psychosocial: No Integumentary: No Family Medical History Patient reports no known family medical history. No Pertinent Family Hx Physical Exam Vital Signs Vital Signs - First Documented 07/05/20 13:36 Temp 37.8 Pulse 99 Resp 22 B/P (MAP) 147/126 (133) Pulse Ox 100 O2 Delivery Room Air Capillary Refill : Height/Weight/BMI Height: 5'11.00" Weight: 157lbs. oz. 71.518389uk; 21.00 BMI Method:Stated General Appearance: WD/WN, no apparent distress, thin (Alert pleasant no distress. He denies pain at this time though he states he did have pain just below the bellybutton earlier. 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.) Neck: non-tender Respiratory: no respiratory distress, no accessory muscle use Cardiovascular: regular rate, rhythm, no murmur Gastrointestinal: normal bowel sounds, non tender, soft Extremities: normal range of motion, non-tender Neurologic/Psychiatric: alert Skin: normal color, warm/dry Focused Exam Lactate Level 07/05/20 13:50: Lactic Acid Level 1.62 Lactic Acid Level Laboratory Tests Test 07/05/20 13:50 Lactic Acid Level 1.62 MMOL/L (0.50-2.00) Progress/Results/Core Measures Results/Orders Lab Results Laboratory Tests Test 07/05/20 13:50 Range/Units White Blood Count 9.9 4.3-11.0 10^3/uL Red Blood Count 4.03 L 4.30-5.52 10^6/uL Hemoglobin 12.3 L 13.3-17.7 g/dL Hematocrit 38 L 40-54 % Mean Corpuscular Volume 94 80-99 fL Mean Corpuscular Hemoglobin 31 25-34 pg Mean Corpuscular Hemoglobin Concent 33 32-36 g/dL Red Cell Distribution Width 13.5 10.0-14.5 % Platelet Count 217 130-400 10^3/uL Mean Platelet Volume 10.0 9.0-12.2 fL Immature Granulocyte % (Auto) 1 % Neutrophils (%) (Auto) 67 42-75 % Lymphocytes (%) (Auto) 17 12-44 % Monocytes (%) (Auto) 12 0-12 % Eosinophils (%) (Auto) 3 0-10 % Basophils (%) (Auto) 1 0-10 % Neutrophils # (Auto) 6.6 1.8-7.8 10^3/uL Lymphocytes # (Auto) 1.7 1.0-4.0 10^3/uL Monocytes # (Auto) 1.2 H 0.0-1.0 10^3/uL Eosinophils # (Auto) 0.3 0.0-0.3 10^3/uL Basophils # (Auto) 0.1 0.0-0.1 10^3/uL Immature Granulocyte # (Auto) 0.1 0.0-0.1 10^3/uL Sodium Level 136 135-145 MMOL/L Potassium Level 4.2 3.6-5.0 MMOL/L Chloride Level 101 98-107 MMOL/L Carbon Dioxide Level 20 L 21-32 MMOL/L Anion Gap 15 H 5-14 MMOL/L Blood Urea Nitrogen 17 7-18 MG/DL Creatinine 0.80 0.60-1.30 MG/DL Estimat Glomerular Filtration Rate > 60 BUN/Creatinine Ratio 21 Glucose Level 193 H 70-105 MG/DL Lactic Acid Level 1.62 0.50-2.00 MMOL/L Calcium Level 9.8 8.5-10.1 MG/DL Corrected Calcium 10.1 8.5-10.1 MG/DL Total Bilirubin 0.9 0.1-1.0 MG/DL Aspartate Amino Transf (AST/SGOT) 17 5-34 U/L Alanine Aminotransferase (ALT/SGPT) 7 0-55 U/L Alkaline Phosphatase 78 40-136 U/L B-Type Natriuretic Peptide 159.2 H <100.0 PG/ML Total Protein 9.0 H 6.4-8.2 GM/DL Albumin 3.6 3.2-4.5 GM/DL Procalcitonin 0.06 <0.10 NG/ML Micro Results Microbiology 07/05/20 Blood Culture - Preliminary, Resulted No growth 07/05/20 Blood Culture - Preliminary, Resulted No growth My Orders Orders - THA REZA APRN Cbc With Automated Diff (07/05/20 13:41) Comprehensive Metabolic Panel (07/05/20 13:41) Ua Culture If Indicated (07/05/20 13:41) Ct Abdomen/Pelvis Wo (07/05/20 13:41) Ed Iv/Invasive Line Start (07/05/20 13:41) Blood Culture (07/05/20 13:42) Lactic Acid Analyzer (07/05/20 13:42) Procalcitonin (Pct) (07/05/20 13:42) Chest 1 View, Ap/Pa Only (07/05/20 13:42) BNP (07/05/20 13:42) Acetaminophen Tablet (Tylenol Tablet) (07/05/20 13:45) Ns Iv 1000 Ml (Sodium Chloride 0.9%) (07/05/20 15:30) Ns Iv 1000 Ml (Sodium Chloride 0.9%) (07/05/20 15:12) Na Phos/Na Biphos Enema (Fleet Enema Marcus (07/05/20 16:00) Na Phos/Na Biphos Enema (Fleet Enema Marcus (07/05/20 15:48) Medications Given in ED Vital Signs/I&O 07/05/20 13:36 Temp 37.8 Pulse 99 Resp 22 B/P (MAP) 147/126 (133) Pulse Ox 100 O2 Delivery Room Air Diagnostic Imaging Diagonstic Imaging: Xray Plain Films/CT/US/NM/MRI: chest Comments NAME: JULIAN DILLON [facility] REC#: [id number] PT STATUS: REG ER : 1930 PHYSICIAN: THA REZA APRN ADMIT DATE: 07/05/20/ER Draft Date of Exam:07/05/20 CHEST 1 VIEW, AP/PA ONLY INDICATION: Pain FINDINGS: Exam compared to 01/03/2020 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 New opacities in the mid to lower lungs greater right have developed suspect for pneumonia. Given the density and focal quality of the opacities short-term radiographic follow-up recommended to exclude the less likely consideration for formation of masses a repeat chest x-ray within 2 weeks' time recommended. There are small bilateral pleural effusions greater right. There is no pneumothorax. Heart size within normal limits. IMPRESSION: Probable bilateral lower lung pneumonias having developed in the interim with background chronic emphysematous sequelae new small pleural effusions. No pneumothorax. Radiographic follow-up recommended as discussed. Dictated on workstation # [id number] Dict: 07/05/20 1424 Trans: 07/05/20 1430 [facility] [id number] Interpreted by: ALEX VARGAS Electronically signed by: NAME: JULIAN DILLON [facility] REC#: [id number] PT STATUS: REG ER : 1930 PHYSICIAN: THA REZA APRN ADMIT DATE: 07/05/20/ER Draft Date of Exam:07/05/20 CT ABDOMEN/PELVIS WO PROCEDURE: CT abdomen and pelvis without contrast. TECHNIQUE: Multiple contiguous axial images were obtained through the abdomen and pelvis without the use of intravenous contrast. Auto Exposure Controls were utilized during the CT exam to meet ALARA standards for radiation dose reduction. INDICATION: Suprapubic pain, large inguinal hernia, chronic sepsis. No history of cancer COMPARISON STUDY: CT of the chest from 01/03/2020. FINDINGS: Areas of atelectasis and infiltrates are present in both lower lobes. A mass within this cannot be excluded. There is also some atelectasis in the lingula. These have increased since the previous CT scan from December. Coronary artery calcifications are present. The liver, gallbladder, spleen, pancreas, adrenal glands and kidneys are unremarkable. Diffuse arterial sclerosis present. No aneurysms are identified. Prostate gland is mildly enlarged. Urinary bladder has a small diverticulum to the left side. Large amount of stool seen in the rectum with slight thickening of the rectal wall. This measures 8.6 cm. Increased stool seen throughout the colon. There are some noninflamed colonic diverticuli. Small bowel loops appear normal. The sigmoid colon herniates into the left inguinal orifice. This is incompletely imaged. There is a loop of descending portion of the colon going into a right inguinal hernia without obstruction or inflammation. No ascites or free air is present. There is a L1 compression fracture of unknown age. Degenerative changes seen throughout the lumbar spine and both hips. IMPRESSION: 1. There are bilateral inguinal hernias with bowel loops and colon herniating both sides. No obstruction or inflammation is present. 2. Urinary bladder diverticulum is present. 3. Fecal impaction and constipation are present. Small bowel loops appear normal. 4. There is some atelectasis and probable infiltrates in both lower lobes and the lingula which have increased since previous exam in December. 5. Degenerative changes present in the spine. There is a L1 compression fracture which was not present in December. Dictated on workstation # [id number] Dict: 07/05/20 1423 Trans: 07/05/20 1439 [facility] [id number] Interpreted by: CHARAN LOO MD Electronically signed by: Departure Communication (Admissions) 1604-Did a digital disimpaction, stool was broken up. Then given a fleets enema. We will get him up to the commode here in a few minutes and try to get a urine sample at that time. 1624-he had a small formed bowel movement at this time in the bedside commode. With his oxygen at his baseline 3 L this simple movement of going from the commode back to the bed resulted in a transient hypoxia down to about 84%. We increased him to 4 to 5 L per nasal cannula supplement. Blood pressure at this time is 125/82 though has consistently been in the mid 90s systolic. He is very weak and requires assistance of 2 to get from commode back to bed. He lives on the assisted living court in [facility] and I do not think that he can adequately care for himself there at this time. Temperature was 100.1 on arrival has fallen to 99 degrees at this time. He does have a productive cough. Impression Primary Impression: Inguinal hernia Additional Impressions: PNA (pneumonia) Advanced age Disposition: HOME, SELF-CARE Condition: Stable Departure-Patient Inst. Referrals: TAB FINCH MD (PCP/Family) Primary Care Physician THA REZA APRN July 05, 2020 13:45
[2020-07-05 14:02] LABS: BASOPHILS # (AUTO) 0.1 10^3/uL (0.0-0.1); BASOPHILS % (AUTO) 1 % (0-10); EOSINOPHILS # (AUTO) 0.3 10^3/uL (0.0-0.3); EOSINOPHILS % (AUTO) 3 % (0-10); HEMATOCRIT 38 % (40-54); HEMOGLOBIN 12.3 g/dL (13.3-17.7); LYMPHOCYTES # (AUTO) 1.7 10^3/uL (1.0-4.0); LYMPHOCYTES % (AUTO) 17 % (12-44); MEAN CORPUSCULAR HEMOGLOBIN 31 pg (25-34); MEAN CORPUSCULAR HGB CONC 33 g/dL (32-36); MEAN CORPUSCULAR VOLUME 94 fL (80-99); MONOCYTES # (AUTO) 1.2 10^3/uL (0.0-1.0); MONOCYTES % (AUTO) 12 % (0-12); NEUTROPHILS # (AUTO) 6.6 10^3/uL (1.8-7.8); NEUTROPHILS % (AUTO) 67 % (42-75); PLATELET COUNT 217 10^3/uL (130-400); WHITE BLOOD COUNT 9.9 10^3/uL (4.3-11.0)
[2020-07-05 14:11] LABS: ALBUMIN 3.6 GM/DL (3.2-4.5); CHLORIDE 101 MMOL/L (98-107); POTASSIUM 4.2 MMOL/L (3.6-5.0); SODIUM 136 MMOL/L (135-145)
[2020-07-05 14:12] LABS: CALCIUM 9.8 MG/DL (8.5-10.1)
[2020-07-05 14:13] LABS: GLUCOSE 193 MG/DL (70-105)
[2020-07-05 14:14] LABS: CARBON DIOXIDE 20 MMOL/L (21-32)
[2020-07-05 14:15] LABS: BILIRUBIN,TOTAL 0.9 MG/DL (0.1-1.0)
[2020-07-05 14:17] LABS: ALKALINE PHOSPHATASE 78 U/L (40-136); GFR ESTIMATED > 60
[2020-07-05 14:18] LABS: BUN/CREATININE RATIO 21
[2020-07-05 14:20] LABS: ALANINE AMINOTRANSFERASE 7 U/L (0-55)
--- NOTE | 2020-07-05 14:31 | Diagnostic Imaging Report ---
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 New opacities in the mid to lower lungs greater right have developed suspect for pneumonia. Given the density and focal quality of the opacities short-term radiographic follow-up recommended to exclude the less likely consideration for formation of masses a repeat chest x-ray within 2 weeks' time recommended. There are small bilateral pleural effusions greater right. There is no pneumothorax. Heart size within normal limits. IMPRESSION: Probable bilateral lower lung pneumonias having developed in the interim with background chronic emphysematous sequelae new small pleural effusions. No pneumothorax. Radiographic follow-up recommended as discussed. Dictated by: Dictated on workstation # [id number]
--- NOTE | 2020-07-05 14:40 | Diagnostic Imaging Report ---
PROCEDURE: CT abdomen and pelvis without contrast. TECHNIQUE: Multiple contiguous axial images were obtained through the abdomen and pelvis without the use of intravenous contrast. Auto Exposure Controls were utilized during the CT exam to meet ALARA standards for radiation dose reduction. INDICATION: Suprapubic pain, large inguinal hernia, chronic sepsis. No history of cancer COMPARISON STUDY: CT of the chest from 01/03/2020. FINDINGS: Areas of atelectasis and infiltrates are present in both lower lobes. A mass within this cannot be excluded. There is also some atelectasis in the lingula. These have increased since the previous CT scan from December. Coronary artery calcifications are present. The liver, gallbladder, spleen, pancreas, adrenal glands and kidneys are unremarkable. Diffuse arterial sclerosis present. No aneurysms are identified. Prostate gland is mildly enlarged. Urinary bladder has a small diverticulum to the left side. Large amount of stool seen in the rectum with slight thickening of the rectal wall. This measures 8.6 cm. Increased stool seen throughout the colon. There are some noninflamed colonic diverticuli. Small bowel loops appear normal. The sigmoid colon herniates into the left inguinal orifice. This is incompletely imaged. There is a loop of descending portion of the colon going into a right inguinal hernia without obstruction or inflammation. No ascites or free air is present. There is a L1 compression fracture of unknown age. Degenerative changes seen throughout the lumbar spine and both hips. IMPRESSION: 1. There are bilateral inguinal hernias with bowel loops and colon herniating both sides. No obstruction or inflammation is present. 2. Urinary bladder diverticulum is present. 3. Fecal impaction and constipation are present. Small bowel loops appear normal. 4. There is some atelectasis and probable infiltrates in both lower lobes and the lingula which have increased since previous exam in December. 5. Degenerative changes present in the spine. There is a L1 compression fracture which was not present in December. Dictated by: Dictated on workstation # [id number]
[2020-07-05] MEDS ORDERED: NS IV 1000 ML 1,000 ML ONE (15:12)
[2020-07-05] MEDS ORDERED: NS IV 1000 ML 1,000 ML IV SCH (15:30)
[2020-07-05] MEDS ORDERED: FLEET ENEMA ADULT 1 EA BTL ONE (15:48)
[2020-07-05] MEDS ORDERED: FLEET ENEMA ADULT 1 EA BTL PR ONE (16:00)
[2020-07-05 17:24] VITALS: BP 122/74
[2020-07-05] MEDS ORDERED: RT-ALBUTEROL/IPRATROPIUM 3 ML (DUONEB) VIAL INH PRN (17:45)
[2020-07-05] MEDS ORDERED: LACTATED RINGERS 1,000 ML IV ONE (17:51)
[2020-07-05] MEDS ORDERED: RT-ALBUTEROL/IPRATROPIUM 3 ML (DUONEB) VIAL ONE (18:44)
[2020-07-05] MEDS: RT-ALBUTEROL/IPRATROPIUM 3 ML (DUONEB) VIAL INH SCH (19:09)
[2020-07-05 20:00] VITALS: BP 99/57
[2020-07-05] MEDS: polyethylene glycoL POWDER 17 GM (MIRALAX) PACK PO SCH (23:31)
[2020-07-05] MEDS: LACTATED RINGERS 1,000 ML IV SCH (23:32)
[2020-07-05 23:40] VITALS: BP 114/66
[2020-07-05] MEDS: CEFEPIME 1,000 MG/SWFI 10 ML IV PUSH IV SCH ×2 (23:44)
[2020-07-05] MEDS: predniSONE 20 MG TAB PO SCH (23:45)
[2020-07-06] MEDS ORDERED: guaiFENesin/CODEINE (ROBITUSSIN AC) 10ML UDC ONE (00:08)
[2020-07-06] MEDS ORDERED: guaiFENesin/CODEINE (ROBITUSSIN AC) 10ML UDC PO PRN (00:15)
[2020-07-06 04:00] VITALS: BP 115/70
[2020-07-06] MEDS: CEFEPIME 1,000 MG/SWFI 10 ML IV PUSH IV SCH ×8 (04:56→21:28)
[2020-07-06 05:38] LABS: BASOPHILS % (AUTO) 0 % (0-10); EOSINOPHILS % (AUTO) 0 % (0-10); HEMATOCRIT 28 % (40-54); LYMPHOCYTES # (AUTO) 0.4 10^3/uL (1.0-4.0); LYMPHOCYTES % (AUTO) 6 % (12-44); MEAN CORPUSCULAR HEMOGLOBIN 30 pg (25-34); MEAN CORPUSCULAR HGB CONC 32 g/dL (32-36); MEAN CORPUSCULAR VOLUME 94 fL (80-99); MEAN PLATELET VOLUME 9.7 fL (9.0-12.2); MONOCYTES # (AUTO) 0.2 10^3/uL (0.0-1.0); MONOCYTES % (AUTO) 2 % (0-12); NEUTROPHILS # (AUTO) 6.3 10^3/uL (1.8-7.8); NEUTROPHILS % (AUTO) 91 % (42-75); PLATELET COUNT 158 10^3/uL (130-400)
[2020-07-06 05:56] LABS: CHLORIDE 105 MMOL/L (98-107); POTASSIUM 4.2 MMOL/L (3.6-5.0); SODIUM 136 MMOL/L (135-145)
[2020-07-06 05:57] LABS: BAND NEUTROPHILS 14 %; CALCIUM 8.5 MG/DL (8.5-10.1); GLUCOSE 234 MG/DL (70-105); LYMPHOCYTES % (MANUAL) 4 %; MONOCYTES % (MANUAL) 3 %; NEUTROPHILS % (MANUAL) 79 %; RBC MORPH NORMAL
[2020-07-06 05:59] LABS: CARBON DIOXIDE 18 MMOL/L (21-32)
[2020-07-06 06:01] LABS: CREATININE SERUM 0.75 MG/DL (0.60-1.30); GFR ESTIMATED > 60
[2020-07-06 06:02] LABS: BUN/CREATININE RATIO 27
[2020-07-06] MEDS: inSUlin ASPART (NovoLOG) 1 UNIT/0.01 ML (CHARGE PER UNIT) SC SCH ×4 (06:03→21:15)
[2020-07-06] MEDS: RT-ALBUTEROL/IPRATROPIUM 3 ML (DUONEB) VIAL INH SCH ×4 (06:57→18:35)
[2020-07-06] MEDS: LACTATED RINGERS 1,000 ML IV SCH ×2 (07:52→21:28)
[2020-07-06 08:08] VITALS: BP 108/57
[2020-07-06] MEDS ORDERED: LACT20SO2 PO (09:19)
[2020-07-06] MEDS ORDERED: IBUP-2473 PO (09:19)
[2020-07-06] MEDS ORDERED: ACET-168 PO (09:19)
[2020-07-06 12:00] VITALS: BP 101/50
[2020-07-06 16:00] VITALS: BP 108/60
--- NOTE | 2020-07-06 18:38 | History & Physical ---
History of Present Illness History of Present Illness Reason for visit/HPI PT IS AN 89 Y/O MALE WHO IS KNOWN TO ME FROM CLINIC. HE PRESENTED TO THE HOSPITAL WITH COMPLAINT OF SIGNIFICANT ABDOMINAL PAIN AND SHORTNESS OF BREATH. HE REPORTS THAT HE IS FEELING BETTER NOW SINCE HE WAS DISIMPACTED IN THE EMERGENCY DEPARTMENT. HE REPORTS THAT HE HAD A SIGNIFICANT COUGHING EPISODE. HE REPORTS THAT HE IS VERY WEAK AND IS WONDERING ABOUT THERAPY. Date of Admission July 05, 2020 @1631 Date Seen by a Provider: Jul 06, 2020 Time Seen by a Provider: 08:30 Attending Physician TAB MANSFIELD MD Admitting Physician Tab Mansfield MD Consult Allergies and Home Medications Allergies Coded Allergies: No Known Drug Allergies (Unverified , 07/30/12) Home Medications Acetaminophen 500 Mg Tablet, 1,000 MG PO Q8H PRN for PAIN-MILD (1-4) OR TEMPATURE, (Reported) Last Action: Reviewed Albuterol Sulfate 2.5 Mg/0.5 Ml Vial.neb, 2.5 MG INH Q4H PRN for SHORTNESS OF BREATH, (Reported) Last Action: Reviewed Aspirin 81 Mg Tab.chew, 81 MG PO DAILY, (Reported) Last Action: Reviewed Ferrous Sulfate 325 Mg Tablet, 325 MG PO BID, (Reported) Last Action: Reviewed Ibuprofen 200 Mg Tablet, 400 MG PO Q8H PRN for PAIN-MILD (1-4), (Reported) Last Action: Reviewed Lactulose 20 Gm/30 Ml Solution, 30 ML PO DAILY PRN for CONSTIPATION-3RD LINE, (Reported) Last Action: Continued Metformin HCl 500 Mg Tablet, 250 MG PO BID, (Reported) TAKES (500MG) TAB Last Action: Continued Multivitamins with Iron 1 Each Tablet, 1 EACH PO DAILY, (Reported) Last Action: Reviewed Sennosides/Docusate Sodium 1 Each Tablet, 1 EACH PO BID PRN for CONSTIPATION-6TH LINE, (Reported) Last Action: Continued Patient Home Medication List Home Medication List Reviewed: Yes Past Jjsruel-Fzquvh-Ynkwkb Hx Past Med/Social Hx: Reviewed Nursing Past Med/Soc Hx, Reviewed and Corrections made Patient Social History Marrital Status: Living Status: [facility] AT [facility] Employed/Student: retired Alcohol Use: Denies Use Recreational Drug Use: No Smoking Status: Former Smoker Former Smoker, Quit: Feb 06, 2004 Type Used: Cigarettes 2nd Hand Smoke Exposure: No Physical Abuse Screen: No Sexual Abuse: No Recent Foreign Travel: No Contact w/other who traveled: No Recent Hopitalizations: No Recent Infectious Disease Expo: No Immunizations Up To Date Date of Pneumonia Vaccine: Nov 26, 2015 Date of Influenza Vaccine: Nov 18, 2019 Seasonal Allergies Seasonal Allergies: No Past Medical History Surgeries: Orthopedic Respiratory: COPD Currently Using CPAP: No Currently Using BIPAP: No Gastrointestinal: Chronic Constipation CHRONIC LARGE HERNIAS Musculoskeletal: Arthritis Loss of Vision: Denies Hearing Impairment: Denies Family History Reviewed and Corrections made Patient reports no known family medical history. Hypertension Review of Systems Constitutional: No chills, No diaphoresis, No fever; malaise, weakness EENTM: hearing loss; No hoarseness, No throat pain Respiratory: cough, dyspnea on exertion, short of breath Cardiovascular: No chest pain, No palpitations Gastrointestinal: abdominal pain, constipation; No loss of appetite, No nausea, No vomiting Genitourinary: incontinence Musculoskeletal: muscle weakness Skin: no symptoms reported Psychiatric/Neurological: Denies Anxiety, Denies Depressed; Weakness All Other Systems Reviewed Negative Unless Noted: Yes Physical Exam Vital Signs Vital Signs - First Documented 07/05/20 07/05/20 13:36 17:05 Temp 37.8 Pulse 99 Resp 22 B/P (MAP) 147/126 (133) Pulse Ox 100 O2 Delivery Room Air O2 Flow Rate 3.00 Capillary Refill : Less Than 3 Seconds Height, Weight, BMI Height: 5'11.00" Weight: 157lbs. oz. 71.637745ry; 19.13 BMI Method:Stated General Appearance: No Apparent Distress, WD/WN Eyes: Bilateral Eye Normal Inspection, Bilateral Eye PERRL, Bilateral Eye EOMI HEENT: PERRL/EOMI, Pharynx Normal Neck: Full Range of Motion, Non Tender, Supple Respiratory: Chest Non Tender, No Accessory Muscle Use, No Respiratory Distress, Crackles (IN BASES), Decreased Breath Sounds; No Respiratory Distress Cardiovascular: Regular Rate, Rhythm, Normal Peripheral Pulses Gastrointestinal: Normal Bowel Sounds, No Organomegaly, No Pulsatile Mass, Non Tender, Soft Rectal: Deferred Back: Normal Inspection, No Vertebral Tenderness Extremity: Normal Capillary Refill, Normal Range of Motion, Non Tender, No Calf Tenderness, Pedal Edema (TRACE PETAL EDEMA) Neurologic/Psychiatric: Alert, Oriented x3, Normal Mood/Affect, textile knitter II-XII Norm as Tested Skin: Normal Color, Warm/Dry Lymphatic: No Adenopathy Assessment/Plan Assessment and Plan PNEUMONIA FECAL IMPACTION 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 FECAL IMPACTION WITH CHRONIC CONSTIPATION - DIS-IMPACTION IN THE EMERGENCY DEPARTMENT - LACTULOSE AND SENNA TO CONTINUE. DIABETES MELLITUS - RESUME METFORMIN, PRN INSULIN IRON DEFICIENCY ANEMIA - HOLD ORAL IRON WEAKNESS - START PHYSICAL THERAPY Admission Diagnosis PNEUMONIA FECAL IMPACTION WITH CHRONIC CONSTIPATION DIABETES MELLITUS IRON DEFICIENCY ANEMIA WEAKNESS Admission Status: Inpatient Order (span 2 midnights) Reason for Inpatient Admission: INPT ADMISSION FOR PNEUMONIA AND IRON DEFICIENCY - WILL REQUIRE AT LEAST 48 HOURS FOR TREATMENT/STABILIZATION TAB MANSFIELD MD Jul 06, 2020 18:38
[2020-07-06] MEDS ORDERED: LACTULOSE SYRUP 10GM/15ML (ENULOSE) 30ML UDC PO PRN (18:45)
[2020-07-06] MEDS: metFORMIN 500 MG (GLUCOPHAGE) TAB PO SCH (19:25)
[2020-07-06 20:00] VITALS: BP 106/69
[2020-07-06] MEDS: predniSONE 20 MG TAB PO SCH (21:28)
[2020-07-06] MEDS: polyethylene glycoL POWDER 17 GM (MIRALAX) PACK PO SCH (21:28)
[2020-07-07] VITALS (7 sets, daily range): BP systolic 101–123; BP diastolic 53–70
[2020-07-07] MEDS: CEFEPIME 1,000 MG/SWFI 10 ML IV PUSH IV SCH ×6 (04:23→16:53)
[2020-07-07 05:27] LABS: HEMATOCRIT 26 % (40-54); HEMOGLOBIN 8.4 g/dL (13.3-17.7); MEAN CORPUSCULAR HEMOGLOBIN 30 pg (25-34); MEAN CORPUSCULAR HGB CONC 32 g/dL (32-36); MEAN CORPUSCULAR VOLUME 94 fL (80-99); PLATELET COUNT 148 10^3/uL (130-400); WHITE BLOOD COUNT 5.7 10^3/uL (4.3-11.0)
[2020-07-07 05:43] LABS: CHLORIDE 104 MMOL/L (98-107); POTASSIUM 4.3 MMOL/L (3.6-5.0); SODIUM 134 MMOL/L (135-145)
[2020-07-07 05:44] LABS: CALCIUM 8.4 MG/DL (8.5-10.1)
[2020-07-07 05:45] LABS: GLUCOSE 320 MG/DL (70-105)
[2020-07-07 05:47] LABS: CARBON DIOXIDE 19 MMOL/L (21-32)
[2020-07-07 05:49] LABS: CREATININE SERUM 0.74 MG/DL (0.60-1.30); GFR ESTIMATED > 60
[2020-07-07 05:50] LABS: BUN/CREATININE RATIO 28
[2020-07-07] MEDS: RT-ALBUTEROL/IPRATROPIUM 3 ML (DUONEB) VIAL INH SCH ×4 (07:00→18:46)
[2020-07-07] MEDS: SENNA W/DOCUSATE (SENOKOT S) TABLET PO PRN (08:21)
[2020-07-07] MEDS: metFORMIN 500 MG (GLUCOPHAGE) TAB PO SCH ×2 (08:21→16:54)
--- NOTE | 2020-07-07 09:23 | Progress Note ---
Subjective Subjective Date Seen by Provider: Jul 07, 2020 Time Seen by Provider: 09:20 PT STATES THAT HE IS FEELING BETTER, HIS DTR IS IN THE ROOM TODAY - SHE REPORTS THAT HER DAD HAD BEEN ACTING FINE PRIOR TO SUNDAY AND THEN ON SUNDAY WAS FEELING WEAK AND COMPLAINING OF STOMACH PAIN SUNDAY. HE APPARENTLY FELT BETTER SUNDAY, AND THEN SUNDAY AFTER DINNER HE COMPLAINED OF STOMACH PAIN THAT WORSENED OVER THE DAY ON SUNDAY. HE DENIES FEELING SHORT OF BREATH Review of Systems General: No Chills, No Night Sweats; Fatigue Pulmonary: No Dyspnea; Cough Cardiovascular: No: Chest Pain, Palpitations Gastrointestinal: No: Nausea, Abdominal Pain Genitourinary: Incontinence Neurological: Weakness; No: Confusion All Other Systems Reviewed All Other Systems Reviewed: Yes Objective Exam Vital Signs Vital Signs - First Documented 07/05/20 07/05/20 13:36 17:05 Temp 37.8 Pulse 99 Resp 22 B/P (MAP) 147/126 (133) Pulse Ox 100 O2 Delivery Room Air O2 Flow Rate 3.00 Capillary Refill : Less Than 3 Seconds General Appearance: No Apparent Distress, WD/WN Eyes: Bilateral Eye Normal Inspection, Bilateral Eye PERRL, Bilateral Eye EOMI HEENT: PERRL/EOMI, Pharynx Normal Neck: Full Range of Motion, Non Tender, Supple Respiratory: Chest Non Tender, No Accessory Muscle Use, No Respiratory Distress, Crackles (IN BASES), Decreased Breath Sounds; No Respiratory Distress Cardiovascular: Regular Rate, Rhythm, Normal Peripheral Pulses Gastrointestinal: Normal Bowel Sounds, No Organomegaly, No Pulsatile Mass, Non Tender, Soft Rectal: Deferred Back: Normal Inspection, No Vertebral Tenderness Extremity: Normal Capillary Refill, Normal Range of Motion, Non Tender, No Calf Tenderness, Pedal Edema (TRACE PETAL EDEMA) Neurologic/Psychiatric: Alert, Oriented x3, Normal Mood/Affect, 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 Skin: Normal Color, Warm/Dry Lymphatic: No Adenopathy Results Lab Laboratory Tests 07/06/20 11:48: Glucometer 318H 07/06/20 16:48: Glucometer 303H 07/06/20 20:43: Glucometer 290H 07/07/20 05:02: White Blood Count 5.7, Red Blood Count 2.77L, Hemoglobin 8.4L, Hematocrit 26L, Mean Corpuscular Volume 94, Mean Corpuscular Hemoglobin 30, Mean Corpuscular Hemoglobin Concent 32, Red Cell Distribution Width 13.5, Platelet Count 148, Mean Platelet Volume 10.0, Sodium Level 134L, Potassium Level 4.3, Chloride Level 104, Carbon Dioxide Level 19L, Anion Gap 11, Blood Urea Nitrogen 21H, Creatinine 0.74, Estimat Glomerular Filtration Rate > 60, BUN/Creatinine Ratio 28, Glucose Level 320H, Calcium Level 8.4L 07/07/20 05:17: Glucometer 306H Microbiology 07/05/20 Blood Culture - Preliminary, Resulted No growth Assessment/Plan Assessment/Plan Admission Dx PNEUMONIA FECAL IMPACTION WITH CHRONIC CONSTIPATION DIABETES MELLITUS IRON DEFICIENCY ANEMIA WEAKNESS Assessment and Plan PNEUMONIA FECAL IMPACTION 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 FECAL IMPACTION WITH CHRONIC CONSTIPATION - DIS-IMPACTION IN THE EMERGENCY DEPARTMENT - LACTULOSE AND SENNA TO CONTINUE. DIABETES MELLITUS - RESUME METFORMIN, PRN INSULIN IRON DEFICIENCY ANEMIA - HOLD ORAL IRON - CHECK IRON PANEL WEAKNESS - START PHYSICAL THERAPY Admission Dx PNEUMONIA FECAL IMPACTION WITH CHRONIC CONSTIPATION DIABETES MELLITUS IRON DEFICIENCY ANEMIA WEAKNESS Clinical Quality Measures Admission Status Admission Dx PNEUMONIA FECAL IMPACTION WITH CHRONIC CONSTIPATION DIABETES MELLITUS IRON DEFICIENCY ANEMIA WEAKNESS TAB FINCH MD Jul 07, 2020 09:23
--- NOTE | 2020-07-07 09:42 | Physical Therapy Evaluation ---
PT Evaluation-General Medical Diagnosis Admission Date July 05, 2020 at 16:21 Medical Diagnosis: pneumonia Onset Date: Jul 06, 2020 Therapy Diagnosis Therapy Diagnosis: weakness Height/Weight Height (Feet): 5 Height (Inches): 11.00 Weight (Pounds): 157 Precautions Precautions/Isolations: Contact Isolation, Fall Prevention, Contact/Enteric Isolation Weight Bear Status Full Weight Bearing Full Weight Bearing Referral Physician: Donal Reason for Referral: Evaluation/Treatment, Strengthening Medical History Pertinent Medical History: Arthritis, COPD, OA Additional Medical History large (B) inguinal hernias with swollen scrotum; chronic constipation Diabetes Current History Pt admitted through ER secondary to shortness of breath, progressive weakness, and bowel impaction. Pt resides at [facility]. Social History Home: Assisted Living Current Living Status: Alone Pt ambulated with FWW to and from meals at the assisted living prior to this admission. Prior Prior Level of Function SCALE: Activities may be completed with or without assistive devices. 7-Xizqwtxybc-wuusihq completes the activity by him/herself with no assistance from a helper. 5-Set-up or Clean-up Assistance-helper sets up or cleans up; patient completes activity. [place] assists only prior to or following the activity. 4-Supervision or Touching Assistance-helper provides verbal cues and/or touching/steadying and/or contact guard assistance as patient completes activity. Assistance may be provided throughout the activity or intermittently. 3-Partial/Moderate Assistance-helper does LESS THAN HALF the effort. [place] lifts, holds or supports trunk or limbs, but provides less than half the effort. 2-Substantial/Maximal Assistance-helper does MORE THAN HALF the effort. [place] lifts or holds trunk or limbs and provides more than half the effort. 5-Qnitcqxpp-jzrlpm does ALL the effort. Patient does none of the effort to complete the activity. Or, the assistance of 2 or more helpers is required for the patient to complete the activity. If activity was not attempted, code reason: 7-Patient Refused. 9-Not Applicable-not attempted and the patient did not perform the activity before the current illness, exacerbation or injury. 10-Not Attempted due to Environmental Limitations-(lack of equipment, weather restraints, etc.). 88-Not Attempted due to Medical Conditions or Safety Concerns. Bed Mobility: 6 Transfers (B,C,W/C): 6 Gait: 6 PT Evaluation-Current Subjective Pt reports he's weak from being sick and in bed for 3 days. He wants to regain his ability to get in and out of bed and walk. Objective Patient Orientation: Normal For Age ROM/Strength ROM Upper Extremities WFL ROM Lower Extremities WFL Strength Upper Extremities gross 4/5 Strength Lower Extremities Gross 4/5 Integumentary/Posture Bladder Incontinence: Yes Posture kyphotic Sensory Vision: Wears Glasses Hearing: Functional Transfers Roll Left to Right (QC): 4 Sit to Lying (QC): 3 (33) Lying to Sitting/Side of Bed(Q: 3 Sit to Stand (QC): 4 Chair/Jzp-pt-Skhzb Xfer(QC): 3 Toilet Transfer (QC): 3 Gait Does the Patient Walk?: Yes Mode of Locomotion: Walk Anticipated Mode of Locomotion: Walk Walk 10 feet (QC): 3 Distance: Ambulate 10ft x 2 trials with FWW and steadying assist; limit by SOB Gait Assistive Device: FWW Balance Sitting Static: Fair Sitting Dynamic: Fair Standing Static: Fair Standing Dynamic: Fair Assessment/Needs Pt is weak secondary to acute respiratory illness and three days of bed rest. His swollen scrotum does limit bed mobility and he needs education for adaptive techniques to come supine to sit at edge of bed. Pt will benefit from PT for strength, mobility, and gait training. Rehab Potential: Fair PT Medicine Man Goals Medicine Man Goals PT Medicine Man Goals Time Frame: Jul 14, 2020 Roll Left & Right (QC): 6 Sit to Lying (QC): 5 Lying-Sitting on Side/Bed(QC): 5 Sit to Stand (QC): 5 Chair/Cwd-iy-Ezmlo Xfer(QC): 5 Does the Patient Walk: Yes Walk 150 ft (QC): 4 PT Plan Problem List Problem List: Functional Strength, Safety, Gait, Transfer, Bed Mobility Treatment/Plan Treatment Plan: Continue Plan of Care Treatment Plan: Bed Mobility, Education, Functional Strength, Therapeutic Exercise, Transfers Treatment Duration: Jul 14, 2020 Frequency: 6 times per week Estimated Hrs Per Day: .25 hour per day Patient and/or Family Agrees t: Yes Discharge Recommendations Therapy Discharge Recommendati: Post Acute PT Target Placement assisted living; possible ARU Time/GCodes Time In: 930 Time Out: 1000 Total Billed Treatment Time: 30 Total Billed Treatment visit, evalmoderate complexity 30 min MARINA,KAYE PT Jul 07, 2020 09:42
[2020-07-07] MEDS: inSUlin ASPART (NovoLOG) 1 UNIT/0.01 ML (CHARGE PER UNIT) SC SCH ×3 (12:18→21:34)
[2020-07-07 14:17] LABS: HEMOGLOBIN 8.7 g/dL (13.3-17.7)
--- NOTE | 2020-07-07 17:26 | Diagnostic Imaging Report ---
INDICATION: Pneumonia. Comparison made with prior examination of 07/05/2020. FINDINGS: There is cardiomegaly. There is a right middle lobe pneumonia and likely small right lower lobe pneumonia. There is air trapping and compatible COPD. May be small bilateral pleural effusions. No pneumothorax. Mediastinum is unremarkable IMPRESSION: Right middle lobe and right lower lobe pneumonia with small bilateral pleural effusions. COPD. Dictated by: Dictated on workstation # [id number]
[2020-07-07] MEDS: polyethylene glycoL POWDER 17 GM (MIRALAX) PACK PO SCH (21:26)
[2020-07-08] VITALS (7 sets, daily range): BP systolic 98–129; BP diastolic 56–77
[2020-07-08] MEDS: CEFEPIME 1,000 MG/SWFI 10 ML IV PUSH IV SCH ×6 (00:53→17:13)
[2020-07-08 05:55] LABS: HEMATOCRIT 26 % (40-54); HEMOGLOBIN 8.8 g/dL (13.3-17.7); MEAN CORPUSCULAR HEMOGLOBIN 31 pg (25-34); MEAN CORPUSCULAR HGB CONC 33 g/dL (32-36); MEAN CORPUSCULAR VOLUME 92 fL (80-99); MEAN PLATELET VOLUME 10.1 fL (9.0-12.2); PLATELET COUNT 161 10^3/uL (130-400); WHITE BLOOD COUNT 6.1 10^3/uL (4.3-11.0)
[2020-07-08 06:13] LABS: ALBUMIN 2.6 GM/DL (3.2-4.5); CHLORIDE 105 MMOL/L (98-107); POTASSIUM 3.9 MMOL/L (3.6-5.0); SODIUM 137 MMOL/L (135-145)
[2020-07-08 06:15] LABS: CALCIUM 8.6 MG/DL (8.5-10.1)
[2020-07-08 06:16] LABS: GLUCOSE 189 MG/DL (70-105); TOTAL PROTEIN 6.2 GM/DL (6.4-8.2)
[2020-07-08 06:17] LABS: CARBON DIOXIDE 23 MMOL/L (21-32)
[2020-07-08 06:18] LABS: BILIRUBIN,TOTAL 0.5 MG/DL (0.1-1.0)
[2020-07-08 06:19] LABS: ALKALINE PHOSPHATASE 53 U/L (40-136); CREATININE SERUM 0.69 MG/DL (0.60-1.30); GFR ESTIMATED > 60
[2020-07-08 06:20] LABS: BUN/CREATININE RATIO 35
[2020-07-08 06:22] LABS: ALANINE AMINOTRANSFERASE 10 U/L (0-55)
[2020-07-08] MEDS: inSUlin ASPART (NovoLOG) 1 UNIT/0.01 ML (CHARGE PER UNIT) SC SCH ×4 (06:42→21:14)
[2020-07-08] MEDS: MULTIVIT W/MINERALS TAB (THERAGRAN M) PO SCH (06:42)
[2020-07-08] MEDS: RT-ALBUTEROL/IPRATROPIUM 3 ML (DUONEB) VIAL INH SCH ×2 (07:10→18:53)
[2020-07-08] MEDS ORDERED: EPINEPHrine INJECTION 1 MG/ML AMP IM PRN (08:45)
[2020-07-08] MEDS ORDERED: HYDROCORTISONE 100 MG/2 ML (Solu-CORTEF) VIAL IV PRN (08:45)
[2020-07-08] MEDS ORDERED: RT-ALBUTEROL SULF 2.5 MG/3 ML PRE-MIX VIAL IH PRN (08:45)
[2020-07-08] MEDS ORDERED: IRON DEXTRAN INJECTION 25 MG in NS (IVPB) 5.75 ML IV ONE (08:45)
[2020-07-08] MEDS ORDERED: diphenhydrAMINE 50 MG/ML INJ (BENADRYL) IV PRN (08:45)
[2020-07-08] MEDS ORDERED: IRON DEXTRAN INJECTION 1,000 MG in NS (IVPB) 250 ML IV ONE (08:45)
--- NOTE | 2020-07-08 08:45 | Progress Note ---
Subjective Subjective Date Seen by Provider: Jul 08, 2020 Time Seen by Provider: 08:30 JULIAN DENIES FEELING POORLY - HOWEVER HE REPORTS HE IS QUITE FATIGUED. HE STATES THAT HE IS HAVING GOOD URINE OUTPUT. HE HAS A PRODUCTIVE COUGH AND HAS HAD A LOT OF MUCOUS OUTPUT. HE IS WONDERING WHY HIS SUGARS HAVE BEEN SO ELEVATED. Review of Systems General: No Chills; Fatigue, Malaise HEENT: No Dysphasia Pulmonary: Dyspnea, Cough Cardiovascular: No: Chest Pain, Palpitations Gastrointestinal: No: Nausea, Abdominal Pain Genitourinary: Frequency, Incontinence Neurological: Weakness; No: Confusion All Other Systems Reviewed All Other Systems Reviewed: Yes Objective Exam Vital Signs Vital Signs - First Documented 07/05/20 07/05/20 07/07/20 13:36 17:05 16:13 Temp 37.8 Pulse 99 Resp 22 B/P (MAP) 147/126 (133) Pulse Ox 100 O2 Delivery Room Air O2 Flow Rate 3.00 FiO2 36 Capillary Refill : Less Than 3 Seconds General Appearance: No Apparent Distress, WD/WN, Thin Eyes: Bilateral Eye Normal Inspection, Bilateral Eye PERRL, Bilateral Eye EOMI HEENT: PERRL/EOMI, Pharynx Normal Neck: Full Range of Motion, Non Tender, Supple Respiratory: Chest Non Tender, No Respiratory Distress, Crackles (IN BASES), Decreased Breath Sounds; No Respiratory Distress Cardiovascular: Regular Rate, Rhythm, Normal Peripheral Pulses Gastrointestinal: Normal Bowel Sounds, No Organomegaly, No Pulsatile Mass, Non Tender, Soft, Other (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) Rectal: Deferred Back: Normal Inspection, No Vertebral Tenderness Extremity: Normal Capillary Refill, Normal Range of Motion, Non Tender, No Calf Tenderness, Pedal Edema (TRACE PETAL EDEMA) Neurologic/Psychiatric: Alert, Oriented x3, Normal Mood/Affect, fish and wildlife biologist II-XII Norm as Tested Skin: Normal Color, Warm/Dry Lymphatic: No Adenopathy Results Lab Laboratory Tests 07/07/20 10:55: Stool Occult Blood Immunoassay NEGATIVE 07/07/20 11:24: Glucometer 402*H 07/07/20 14:05: Hemoglobin 8.7L, Hematocrit 26L 07/07/20 16:01: Glucometer 344H 07/07/20 20:44: Glucometer 247H 07/08/20 05:25: White Blood Count 6.1, Red Blood Count 2.86L, Hemoglobin 8.8L, Hematocrit 26L, Mean Corpuscular Volume 92, Mean Corpuscular Hemoglobin 31, Mean Corpuscular Hemoglobin Concent 33, Red Cell Distribution Width 13.6, Platelet Count 161, Mean Platelet Volume 10.1, Sodium Level 137, Potassium Level 3.9, Chloride Level 105, Carbon Dioxide Level 23, Anion Gap 9, Blood Urea Nitrogen 24H, Creatinine 0.69, Estimat Glomerular Filtration Rate > 60, BUN/Creatinine Ratio 35, Glucose Level 189H, Calcium Level 8.6, Corrected Calcium 9.7, Total Bilirubin 0.5, Aspartate Amino Transf (AST/SGOT) 14, Alanine Aminotransferase (ALT/SGPT) 10, Alkaline Phosphatase 53, Total Protein 6.2L, Albumin 2.6L Microbiology 07/05/20 Blood Culture - Preliminary, Resulted No growth Assessment/Plan Assessment/Plan Admission Dx PNEUMONIA FECAL IMPACTION WITH CHRONIC CONSTIPATION DIABETES MELLITUS IRON DEFICIENCY ANEMIA WEAKNESS Assessment and Plan PNEUMONIA FECAL IMPACTION 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 - INCENTIVE SPIROMETRY AND ACAPELLA ORDERED WELL FECAL IMPACTION WITH CHRONIC CONSTIPATION - DIS-IMPACTION IN THE EMERGENCY DEPARTMENT - LACTULOSE AND SENNA TO CONTINUE. DIABETES MELLITUS - RESUMED METFORMIN - DOSE INCREASED FROM 250MG BID TO 500MG BID, IMPROVED GLUCOSE OFF OF PREDNISONE, PRN INSULIN IRON DEFICIENCY ANEMIA - PT TO HAVE INFED TODAY - CHECKED IRON PANEL - % SAT OF 9 WEAKNESS - STARTED PHYSICAL THERAPY - DISCUSSED WITH PT AND HIS DTR - WILL NEED TO GO BACK ON SKILLED THERAPY TO [facility] INSTEAD OF ASSISTED LIVING. Admission Dx PNEUMONIA FECAL IMPACTION WITH CHRONIC CONSTIPATION DIABETES MELLITUS IRON DEFICIENCY ANEMIA WEAKNESS Clinical Quality Measures Admission Status Admission Dx PNEUMONIA FECAL IMPACTION WITH CHRONIC CONSTIPATION DIABETES MELLITUS IRON DEFICIENCY ANEMIA WEAKNESS TAB FINCH MD Jul 08, 2020 08:45
[2020-07-08] MEDS: NS IV 500 ML 500 ML IV SCH (10:24)
[2020-07-08] MEDS: metFORMIN 500 MG (GLUCOPHAGE) TAB PO SCH ×3 (10:25→18:28)
--- NOTE | 2020-07-08 15:08 | Physical Therapy Daily Note ---
PT Daily Note-Current Subjective Agreeable to PT. Requests to stay in bed as he is receiving iron right now. Reports he was up earlier today. Transfers SCALE: Activities may be completed with or without assistive devices. 1-Faecsvtsjt-rhpmhsv completes the activity by him/herself with no assistance from a helper. 5-Set-up or Clean-up Assistance-helper sets up or cleans up; patient completes activity. [place] assists only prior to or following the activity. 4-Supervision or Touching Assistance-helper provides verbal cues and/or touching/steadying and/or contact guard assistance as patient completes activity. Assistance may be provided throughout the activity or intermittently. 3-Partial/Moderate Assistance-helper does LESS THAN HALF the effort. [place] lifts, holds or supports trunk or limbs, but provides less than half the effort. 2-Substantial/Maximal Assistance-helper does MORE THAN HALF the effort. [place] lifts or holds trunk or limbs and provides more than half the effort. 9-Mqhxajzhg-nompuj does ALL the effort. Patient does none of the effort to compl ete the activity. Or, the assistance of 2 or more helpers is required for the patient to complete the activity. If activity was not attempted, code reason: 7-Patient Refused. 9-Not Applicable-not attempted and the patient did not perform the activity before the current illness, exacerbation or injury. 10-Not Attempted due to Environmental Limitations-(lack of equipment, weather restraints, etc.). 88-Not Attempted due to Medical Conditions or Safety Concerns. Weight Bearing Full Weight Bearing Full Weight Bearing Exercises Supine Ex: Ankle pumps, Quad Set, Glut sets, Heel Slides, Short Arc Quads, Hip abd/add Supine Reps: 10 Treatments Bed mobility training for scooting in bed and rolling side to side. Repositioned for comfort but lifted left buttock with pillow for pressure relie f. Heels elevated. Assessment LE functional strength and ROM. Bed mobility for comfort. Tolerated well. PT Gyroscopic Engineering Technician Goals Gyroscopic Engineering Technician Goals PT Gyroscopic Engineering Technician Goals Time Frame: Jul 14, 2020 Roll Left & Right (QC): 6 Sit to Lying (QC): 5 Lying-Sitting on Side/Bed(QC): 5 Sit to Stand (QC): 5 Chair/Fnk-kt-Odzky Xfer(QC): 5 Does the Patient Walk: Yes Walk 150 ft (QC): 4 PT Plan Problem List Problem List: Activity Tolerance, Functional Strength, Safety, Balance, Gait, Transfer, Bed Mobility Treatment/Plan Treatment Plan: Continue Plan of Care Treatment Plan: Bed Mobility, Education, Functional Strength, Therapeutic Exercise, Transfers Treatment Duration: Jul 14, 2020 Frequency: 6 times per week Estimated Hrs Per Day: .25 hour per day Patient and/or Family Agrees t: Yes Safety Risks/Education Patient Education: Safety Issues Teaching Recipient: Patient Teaching Methods: Discussion Response to Teaching: Verbalize Understanding Time/GCodes Time In: 1410 Time Out: 1430 Total Billed Treatment Time: 20 Total Billed Treatment visit EX 20 JOSE STEINER PT Jul 08, 2020 15:08
--- NOTE | 2020-07-08 16:50 | Physician Query Clarification ---
Physician Query-General Query to Physician: The medical record reflects the following clinical evidence: Clinical Indicators: P/F ratio 155 or 91% on 5L(P 62%/F 0.40) (above 3L baseline), SOA with Exertion, Risk Factor(s): PNA, DM, Generalized weakness, COPD, "always on 3L" Treatment: IV Cefepime, Duo Nebs, Supplemental 02 on High flow NC, Respiratory monitoring 1. Acute on chronic hypoxic respiratory failure, in the setting of Pneumonia, CPOD and weakness present on admission 2. Other explanation of clinical findings 3. Unable to determine (no explanation for clinical findings) Please clarify and document your clinical opinion in the progress notes and discharge summary including the definitive and/or presumptive diagnosis, (suspected or probable), related to the above clinical findings. Please include clinical findings supporting your diagnosis. Lulu Lemus MSN, RN [phone] [email or web address] PHYSICIAN RESPONSE: Based on the clinical findings in the record, please respond to the query above on this document as an addendum. Physician Response: Physician Response 1 If you have questions please contact: Shoe Turner: Ext: Thank you for your time and cooperation. Clinical Refrigeration Person/Shoe Turner This is a permanent part of the medical record LULU LEMUS Jul 08, 2020 16:50 TAB FINCH MD Jul 14, 2020 12:55
[2020-07-08] MEDS: ACETAMINOPHEN 325 MG TABLET PO PRN (17:54)
[2020-07-08] MEDS: polyethylene glycoL POWDER 17 GM (MIRALAX) PACK PO SCH (20:57)
[2020-07-09] MEDS: CEFEPIME 1,000 MG/SWFI 10 ML IV PUSH IV SCH ×8 (00:32→23:14)
[2020-07-09] MEDS: NS IV 500 ML 500 ML IV SCH (00:48)
[2020-07-09 03:42] VITALS: BP 138/78
[2020-07-09] MEDS: inSUlin ASPART (NovoLOG) 1 UNIT/0.01 ML (CHARGE PER UNIT) SC SCH ×4 (05:29→20:57)
[2020-07-09] MEDS: MULTIVIT W/MINERALS TAB (THERAGRAN M) PO SCH (05:46)
[2020-07-09] MEDS: RT-ALBUTEROL/IPRATROPIUM 3 ML (DUONEB) VIAL INH SCH ×4 (07:07→18:46)
[2020-07-09 07:45] VITALS: BP 153/67
[2020-07-09] MEDS: metFORMIN 500 MG (GLUCOPHAGE) TAB PO SCH ×2 (08:27→18:09)
[2020-07-09] MEDS ORDERED: FUROSEMIDE 40 MG/4 ML INJ (LASIX) IVP NR (09:04)
--- NOTE | 2020-07-09 09:20 | Diagnostic Imaging Report ---
INDICATION: Respiratory changes. TIME OF EXAM: 9:06 AM Correlation is made with prior chest from 07/07/2020. FINDINGS: Heart size is stable. Bilateral pulmonary infiltrates and bilateral effusions persist. There may be slight increase in the infiltrates in the bases as well as slight increase in the effusions bilaterally when compared with 2 days earlier. Upper lung holder are clear. There is no pneumothorax. IMPRESSION: Slight increase in bilateral infiltrates and effusions when compared with examination 2 days earlier. Dictated by: Dictated on workstation # [id number]
[2020-07-09] MEDS ORDERED: guaiFENesin (MUCINEX) 600 MG TAB PO NR (09:43)
--- NOTE | 2020-07-09 09:55 | Progress Note ---
Subjective Subjective Date Seen by Provider: Jul 09, 2020 Time Seen by Provider: 08:50 APPARENTLY JULIAN HAD A BAD DAY YESTERDAY - HE BLAMES IT ON THE IV IRON - HE REPORTS THAT HE DID NOT LIKE THE IRON, IT BURNED GOING INTO HIS ARM. PER HIS DAUGHTER - HE POUTED ALL DAY YESTERDAY, AND REFUSED TO EAT LUNCH OR SUPPER BECAUSE HE DID NOT LIKE THE IV IRON. - HIS DAUGHTER REPORTS THAT "WHEN HE DOESN'T LIKE SOMETHING HE WILL POUT ABOUT IT". STAFF REPORTS THAT THIS MORNING AFTER EATING BREAKFAST THEY WERE DOING ACAPELLA AND HE COUGHED UP A LARGE AMOUNT OF MUCOUS AND THEN HIS OXYGEN LEVEL DECREASED TO THE 80'S. THEY WERE UNABLE TO GET IT UP FURTHER AND HE WAS SITTING IN THE 85% RANGE DESPITE BEING ON 12 LITERS OF OXYGEN, THEN THEY PUT HIM ON VAPOTHERM AT 40LITERS AND 100% WITH HIS OXYGEN ONLY GOING UP TO THE LOW 90'S. WHILE I WAS IN THE ROOM JULIAN HAD A COUGHING AND SNEEZING FIT AND HE COUGHED UP A SMALL PLUG OF MUCOUS AND HIS OXYGEN LEVEL CAME BACK UP TO 95%. I DECREASED THE OXYGEN DOWN TO 30LMP AND 90% WITH HIS OXYGEN REMAINING IN THE MID 90'S. Review of Systems General: No Chills; Fatigue, Malaise HEENT: No Dysphasia Pulmonary: Dyspnea, Cough Cardiovascular: No: Chest Pain, Palpitations, Edema Gastrointestinal: No: Nausea, Abdominal Pain Genitourinary: Frequency, Incontinence Neurological: Weakness; No: Confusion All Other Systems Reviewed All Other Systems Reviewed: Yes Objective Exam Vital Signs Vital Signs - First Documented 07/05/20 07/05/20 07/07/20 13:36 17:05 16:13 Temp 37.8 Pulse 99 Resp 22 B/P (MAP) 147/126 (133) Pulse Ox 100 O2 Delivery Room Air O2 Flow Rate 3.00 FiO2 36 Capillary Refill : Less Than 3 Seconds General Appearance: No Apparent Distress, WD/WN, Thin Eyes: Bilateral Eye Normal Inspection, Bilateral Eye PERRL, Bilateral Eye EOMI HEENT: PERRL/EOMI, Pharynx Normal, Other (TIP OF NOSE SLIGHTLY PURPLE) Neck: Full Range of Motion, Non Tender, Supple Respiratory: Chest Non Tender, No Respiratory Distress, Crackles (RIGHT BASE WORSE THAN LEFT), Decreased Breath Sounds (BILATERAL BASES); No Respiratory Distress; Rhonci; No Stridor Cardiovascular: Regular Rate, Rhythm, Normal Peripheral Pulses Gastrointestinal: Normal Bowel Sounds, No Organomegaly, No Pulsatile Mass, Non Tender, Soft, Other (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) Rectal: Deferred Back: Normal Inspection, No Vertebral Tenderness Extremity: Normal Capillary Refill, Normal Range of Motion, Non Tender, No Calf Tenderness, Pedal Edema (TRACE PEDAL EDEMA) Neurologic/Psychiatric: Alert, Oriented x3, Normal Mood/Affect, embedded firmware engineer II-XII Norm as Tested Skin: Normal Color, Warm/Dry, Cyanosis (TIP OF NOSE) Lymphatic: No Adenopathy Results Lab Laboratory Tests 07/08/20 11:57: Glucometer 235H 07/08/20 15:45: Glucometer 104 07/08/20 20:11: Glucometer 272H 07/09/20 05:27: Glucometer 126H Microbiology 07/05/20 Blood Culture - Preliminary, Resulted No growth Assessment/Plan Assessment/Plan Admission Dx PNEUMONIA FECAL IMPACTION WITH CHRONIC CONSTIPATION DIABETES MELLITUS IRON DEFICIENCY ANEMIA WEAKNESS Assessment and Plan PNEUMONIA FECAL IMPACTION WITH CHRONIC CONSTIPATION DIABETES MELLITUS IRON DEFICIENCY ANEMIA WEAKNESS PNEUMONIA WITH PLEURAL EFFUSIONS AND NEW ONSET HYPOXIA - PT ON IV ANTIBIOTIC - CEFEPIME FROM ADMISSION - ADDED AZITHROMYCIN 07/09/2020, PRN BREATHING TREATMENTS, ADDED ADVAIR, AND GAVE DOSE OF LASIX 07/09/20 FOR PLEURAL EFFUSIONS. - REPEAT CXR TOMORROW MORNING. - INCENTIVE SPIROMETRY AND ACAPELLA ORDERED WELL - PT IS DNR/DNI, DOES NOT WANT BIPAP, VAPOTHERM IS AGGRESSIVE JULIAN WOULD LIKE TO GO WITH TREATMENT. - WILL WEAN DOWN BACK TO OXYGEN VIA NC INSTEAD OF VAPOTHERM IF ABLE TODAY. FECAL IMPACTION WITH CHRONIC CONSTIPATION - DIS-IMPACTION IN THE EMERGENCY DEPARTMENT - LACTULOSE AND SENNA TO CONTINUE. DIABETES MELLITUS - RESUMED METFORMIN - DOSE INCREASED FROM 250MG BID TO 500MG BID, IMPROVED GLUCOSE OFF OF PREDNISONE, PRN INSULIN IRON DEFICIENCY ANEMIA - PT TO HAVE INFED TODAY - CHECKED IRON PANEL - % SAT OF 9 WEAKNESS - STARTED PHYSICAL THERAPY - DISCUSSED WITH PT AND HIS DTR - WILL NEED TO GO BACK ON SKILLED THERAPY TO [facility] INSTEAD OF ASSISTED LIVING. Admission Dx PNEUMONIA FECAL IMPACTION WITH CHRONIC CONSTIPATION DIABETES MELLITUS IRON DEFICIENCY ANEMIA WEAKNESS Clinical Quality Measures Admission Status Admission Dx PNEUMONIA FECAL IMPACTION WITH CHRONIC CONSTIPATION DIABETES MELLITUS IRON DEFICIENCY ANEMIA WEAKNESS TAB FINCH MD Jul 09, 2020 09:55
[2020-07-09] MEDS ORDERED: AZITHROMYCIN INJECTION 500 MG in NS (IVPB) 250 ML IV NR (10:00)
[2020-07-09] MEDS: ENOXAPARIN 40 MG/0.4 ML (LOVENOX) SYR SC SCH (10:12)
[2020-07-09 11:24] VITALS: BP 112/62
--- NOTE | 2020-07-09 11:40 | Physical Therapy Progress Note ---
Therapy Progress Note Patient has had a decline in pulmonary and medical status. Patient is currently on Vapotherm. PT to hold treatment per RN. Attempt to resume in a.m. after checking patient status. ANA SOLIS PT Jul 09, 2020 11:40
[2020-07-09 15:59] VITALS: BP 93/57
[2020-07-09] MEDS: RT--FLUTICASONE/SALMETEROL 113-14 (AIRDUO RespiCLICK) IH SCH (18:46)
[2020-07-09 19:42] VITALS: BP 117/56
[2020-07-09] MEDS: ACETAMINOPHEN 325 MG TABLET PO PRN (20:56)
[2020-07-09] MEDS: guaiFENesin (MUCINEX) 600 MG TAB PO SCH (20:56)
[2020-07-09] MEDS: polyethylene glycoL POWDER 17 GM (MIRALAX) PACK PO SCH (20:56)
[2020-07-09 23:33] VITALS: BP 102/59
[2020-07-10 03:27] VITALS: BP 136/70
[2020-07-10 03:53] LABS: HEMATOCRIT 30 % (40-54); HEMOGLOBIN 9.8 g/dL (13.3-17.7); MEAN CORPUSCULAR HEMOGLOBIN 31 pg (25-34); MEAN CORPUSCULAR HGB CONC 33 g/dL (32-36); MEAN CORPUSCULAR VOLUME 93 fL (80-99); PLATELET COUNT 189 10^3/uL (130-400); WHITE BLOOD COUNT 14.5 10^3/uL (4.3-11.0)
[2020-07-10 04:17] LABS: ALBUMIN 2.6 GM/DL (3.2-4.5); CHLORIDE 100 MMOL/L (98-107); POTASSIUM 3.5 MMOL/L (3.6-5.0); SODIUM 137 MMOL/L (135-145)
[2020-07-10 04:18] LABS: CALCIUM 8.7 MG/DL (8.5-10.1)
[2020-07-10 04:20] LABS: GLUCOSE 121 MG/DL (70-105); TOTAL PROTEIN 6.6 GM/DL (6.4-8.2)
[2020-07-10 04:21] LABS: BILIRUBIN,TOTAL 0.7 MG/DL (0.1-1.0); CARBON DIOXIDE 24 MMOL/L (21-32)
[2020-07-10 04:23] LABS: ALKALINE PHOSPHATASE 58 U/L (40-136); CREATININE SERUM 0.67 MG/DL (0.60-1.30); GFR ESTIMATED > 60
[2020-07-10 04:24] LABS: BUN/CREATININE RATIO 24
[2020-07-10 04:26] LABS: ALANINE AMINOTRANSFERASE 10 U/L (0-55)
[2020-07-10] MEDS: inSUlin ASPART (NovoLOG) 1 UNIT/0.01 ML (CHARGE PER UNIT) SC SCH ×4 (05:10→21:15)
[2020-07-10] MEDS: MULTIVIT W/MINERALS TAB (THERAGRAN M) PO SCH (05:10)
--- NOTE | 2020-07-10 07:14 | Physical Therapy Progress Note ---
Therapy Progress Note Patient has had a decline in pulmonary and medical status. Patient is continued on Vapotherm. PT to hold treatment per RN. Attempt to resume Sunday a.m after checking patient status. ZOEY MANRIQUEZ PT Jul 10, 2020 07:14
[2020-07-10] MEDS: RT-ALBUTEROL/IPRATROPIUM 3 ML (DUONEB) VIAL INH SCH ×4 (07:32→18:05)
[2020-07-10] MEDS: RT--FLUTICASONE/SALMETEROL 113-14 (AIRDUO RespiCLICK) IH SCH ×2 (07:32→07:36)
[2020-07-10 07:35] VITALS: BP 116/60
[2020-07-10] MEDS ORDERED: CEFEPIME 1 GM/10 ML (MAXIPIME) VIAL ONE (08:00)
[2020-07-10] MEDS ORDERED: WATER (STERILE) FOR INJECTION 10 ML ONE (08:06)
[2020-07-10] MEDS: CEFEPIME 1,000 MG/SWFI 10 ML IV PUSH IV SCH ×4 (08:16→16:18)
[2020-07-10] MEDS: metFORMIN 500 MG (GLUCOPHAGE) TAB PO SCH ×2 (08:16→17:44)
[2020-07-10] MEDS: guaiFENesin (MUCINEX) 600 MG TAB PO SCH ×2 (09:14→21:10)
[2020-07-10] MEDS: ENOXAPARIN 40 MG/0.4 ML (LOVENOX) SYR SC SCH (09:14)
[2020-07-10] MEDS: AZITHROMYCIN 250 MG TAB (ZITHROMAX) PO SCH (09:14)
--- NOTE | 2020-07-10 11:04 | Progress Note ---
Subjective Date Seen by a Provider: Jul 10, 2020 Time Seen by a Provider: 11:01 Subjective/Events-last exam Fwup pneumonia, acute respiratory failure, DMII, weakness, iron def anemia. Got dizzy this morning when got up to side of bed. Vapotherm down to 20%. Objective Exam Vital Signs Date Time Temp Pulse Resp B/P (MAP) Pulse Ox O2 Delivery O2 Flow Rate FiO2 07/10/20 10:36 90 Vapotherm 20.00 70 07/10/20 07:35 37.4 109 22 116/60 (78) 91 Vapotherm 20.00 70.00 07/10/20 07:32 90 Vapotherm 20.00 70 07/10/20 03:27 36.3 96 20 136/70 (92) 92 Vapotherm 20.00 07/10/20 02:38 Vapotherm 20.00 70 07/09/20 23:33 36.2 91 20 102/59 (73) 91 Vapotherm 20.00 07/09/20 20:00 Vapotherm 20.00 07/09/20 19:42 36.8 92 22 117/56 (76) 93 Vapotherm 25.00 80.00 07/09/20 18:46 90 Vapotherm 20.00 70 07/09/20 15:59 36.6 88 21 93/57 (69) 95 Vapotherm 25.00 80.00 07/09/20 15:04 96 Vapotherm 20.00 70 07/09/20 11:24 93 22 112/62 (79) 93 Vapotherm 25.00 80.00 I & O 07/10/20 07:00 Intake Total 1485 ml Output Total 1125 ml Balance 360 ml Capillary Refill : Less Than 3 Seconds General Appearance: No Apparent Distress Respiratory: Crackles, Decreased Breath Sounds Cardiovascular: Regular Rate, Rhythm, Systolic Murmur Gastrointestinal: normal bowel sounds, non tender, soft Extremity: Non Tender, No Calf Tenderness, No Pedal Edema Neurologic/Psychiatric: Alert, Oriented x3 Results Lab Laboratory Tests 07/09/20 11:19: Glucometer 292H 07/09/20 15:31: Glucometer 129H 07/09/20 20:16: Glucometer 232H 07/10/20 03:35: White Blood Count 14.5H, Red Blood Count 3.17L, Hemoglobin 9.8L, Hematocrit 30L, Mean Corpuscular Volume 93, Mean Corpuscular Hemoglobin 31, Mean Corpuscular Hemoglobin Concent 33, Red Cell Distribution Width 13.6, Platelet Count 189, Mean Platelet Volume 10.0, Sodium Level 137, Potassium Level 3.5L, Chloride Level 100, Carbon Dioxide Level 24, Anion Gap 13, Blood Urea Nitrogen 16, Creatinine 0.67, Estimat Glomerular Filtration Rate > 60, BUN/Creatinine Ratio 24, Glucose Level 121H, Calcium Level 8.7, Corrected Calcium 9.8, Total Bilirubin 0.7, Aspartate Amino Transf (AST/SGOT) 15, Alanine Aminotransferase (ALT/SGPT) 10, Alkaline Phosphatase 58, Total Protein 6.6, Albumin 2.6L Microbiology 07/05/20 Blood Culture - Preliminary, Resulted No growth Assessment/Plan Assessment/Plan Assess & Plan/Chief Complaint 1. Acute Respiratory Failure--on Vapotherm but has been weaned down to 20% 2. Pneumonia--on Cefepime and zithromax, portable CXR done this morning 3. DMII--on metformin and accuchecks with SSI 4. Iron Def Anemia--H/H increased today, had iron infusion yesterday 5. Weakness--PT/OT, will need SNF/NH on DC TENZIN OWENS DO Jul 10, 2020 11:04
[2020-07-10 11:25] VITALS: BP 104/44
--- NOTE | 2020-07-10 12:13 | Diagnostic Imaging Report ---
INDICATION: Pleural effusion, pneumonia. TECHNIQUE: Single view chest 9:58 AM. CORRELATION STUDY: 07/09/2020 FINDINGS: Bilateral pulmonary opacities at the mid and lower lung holder superimposed on rather advanced emphysematous lung disease. Findings do appear to be overall increased, particularly at the left lung base. Bilateral pleural effusions are present, improved on the right. Mediastinal structures are stable. IMPRESSION: 1. Bilateral mid to lower lung pulmonary opacities superimposed on rather advanced emphysematous lung disease. Findings adversely changed compatible with multilobe pneumonia. 2. Bilateral pleural effusions appearing improved on the right. Dictated by: Dictated on workstation # [id number]
[2020-07-10 16:03] VITALS: BP 100/66
[2020-07-10] MEDS: ACETAMINOPHEN 325 MG TABLET PO PRN (16:28)
[2020-07-10 20:29] VITALS: BP 100/53
[2020-07-10] MEDS: polyethylene glycoL POWDER 17 GM (MIRALAX) PACK PO SCH (21:10)
[2020-07-10] MEDS: ALPRAZolam 0.25 MG (XANAX) TAB PO PRN (21:10)
[2020-07-10 23:17] VITALS: BP 127/66
[2020-07-11] MEDS: CEFEPIME 1,000 MG/SWFI 10 ML IV PUSH IV SCH ×4 (00:33→08:14)
[2020-07-11 03:24] VITALS: BP 124/69
[2020-07-11] MEDS: inSUlin ASPART (NovoLOG) 1 UNIT/0.01 ML (CHARGE PER UNIT) SC SCH ×4 (05:09→21:43)
[2020-07-11] MEDS: MULTIVIT W/MINERALS TAB (THERAGRAN M) PO SCH (06:23)
[2020-07-11] MEDS: RT-ALBUTEROL/IPRATROPIUM 3 ML (DUONEB) VIAL INH SCH ×4 (07:13→18:40)
[2020-07-11 07:15] VITALS: BP 109/58
[2020-07-11] MEDS: RT--FLUTICASONE/SALMETEROL 113-14 (AIRDUO RespiCLICK) IH SCH ×2 (07:36→21:44)
[2020-07-11] MEDS: metFORMIN 500 MG (GLUCOPHAGE) TAB PO SCH ×2 (08:14→17:46)
[2020-07-11] MEDS: guaiFENesin (MUCINEX) 600 MG TAB PO SCH ×2 (08:14→21:44)
[2020-07-11] MEDS: SENNA W/DOCUSATE (SENOKOT S) TABLET PO PRN (08:14)
[2020-07-11] MEDS: AZITHROMYCIN 250 MG TAB (ZITHROMAX) PO SCH (08:14)
[2020-07-11] MEDS ORDERED: PIPERACILLIN/TAZO 4.5 GM/NS 100 ML IV NR ×2 (09:00)
[2020-07-11] MEDS ORDERED: ANIDULAFUNGIN INJECTION 200 MG in NS (IVPB) 250 ML IV NR (09:00)
[2020-07-11] MEDS: ENOXAPARIN 40 MG/0.4 ML (LOVENOX) SYR SC SCH (09:03)
--- NOTE | 2020-07-11 09:07 | Progress Note ---
Subjective Date Seen by a Provider: Jul 11, 2020 Time Seen by a Provider: 09:04 Subjective/Events-last exam Fwup pneumonia, acute respiratory failure, DMII, weakness, iron def anemia. Patient was agitated last night--given a low dose of alprazolam and this helped so rested well. Good appetite this morning. Still coughing up phlegm. Objective Exam Vital Signs Date Time Temp Pulse Resp B/P (MAP) Pulse Ox O2 Delivery O2 Flow Rate FiO2 07/11/20 07:56 95 Vapotherm 20.00 07/11/20 07:15 37.1 85 20 109/58 (75) 94 Vapotherm 15.00 60.00 07/11/20 07:14 95 Vapotherm 20.00 70 07/11/20 03:24 36.4 91 20 124/69 (87) 94 Vapotherm 20.00 70.00 07/11/20 02:23 87 Vapotherm 20.00 70 07/10/20 23:17 36.4 91 20 127/66 (86) 91 Vapotherm 20.00 70.00 07/10/20 20:52 90 Vapotherm 20.00 70 07/10/20 20:32 Vapotherm 20.00 07/10/20 20:29 36.0 98 24 100/53 (69) 90 Vapotherm 20.00 70.00 07/10/20 18:05 90 Vapotherm 20.00 70 07/10/20 16:03 36.2 71 24 100/66 (77) 90 Vapotherm 20.00 70.00 07/10/20 14:53 94 Vapotherm 20.00 70 07/10/20 11:25 37.4 100 24 104/44 (64) 90 Vapotherm 20.00 70.00 07/10/20 10:36 90 Vapotherm 20.00 70 I & O 07/11/20 07:00 Intake Total 700 ml Output Total 150 ml Balance 550 ml Capillary Refill : Less Than 3 Seconds General Appearance: No Apparent Distress Neck: Supple Respiratory: Crackles, Decreased Breath Sounds Cardiovascular: Regular Rate, Rhythm, Systolic Murmur, Gallop/S4 Gastrointestinal: normal bowel sounds, non tender, soft Extremity: Non Tender, No Calf Tenderness, No Pedal Edema Neurologic/Psychiatric: Alert, Oriented x3 Results Lab Laboratory Tests 07/10/20 11:24: Glucometer 271H 07/10/20 16:12: Glucometer 136H 07/10/20 21:11: Glucometer 168H 07/11/20 05:07: Glucometer 169H Microbiology 07/05/20 Blood Culture - Preliminary, Resulted No growth Assessment/Plan Assessment/Plan Assess & Plan/Chief Complaint 1. Acute Respiratory Failure--on Vapotherm but has been weaned down to 20% 2. 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 DMII--on metformin and accuchecks with SSI 4. Iron Def Anemia--S/P iron infusion 5. Weakness--PT/OT, will need SNF/NH on DC TENZIN OWENS DO Jul 11, 2020 09:07
[2020-07-11] MEDS ORDERED: VANCOMYCIN INJECTION 0.1 MG in NS (IVPB) 250 ML IV SCH (09:15)
[2020-07-11] MEDS ORDERED: VANCOMYCIN 1250 MG/NS 250 ML IVPB IV NR ×2 (09:30)
[2020-07-11 10:05] LABS: HEMATOCRIT 28 % (40-54); HEMOGLOBIN 9.1 g/dL (13.3-17.7); MEAN CORPUSCULAR HEMOGLOBIN 31 pg (25-34); MEAN CORPUSCULAR HGB CONC 33 g/dL (32-36); MEAN CORPUSCULAR VOLUME 94 fL (80-99); MEAN PLATELET VOLUME 9.6 fL (9.0-12.2); PLATELET COUNT 199 10^3/uL (130-400); WHITE BLOOD COUNT 8.7 10^3/uL (4.3-11.0)
[2020-07-11 11:40] VITALS: BP 121/69
[2020-07-11 16:23] VITALS: BP 107/64
[2020-07-11] MEDS: PIPERACILLIN/TAZOBACTAM (BULK) 4.5 GM in NS (IVPB) 100 ML IV SCH ×2 (16:25→23:53)
[2020-07-11 20:45] VITALS: BP 116/71
[2020-07-11] MEDS: polyethylene glycoL POWDER 17 GM (MIRALAX) PACK PO SCH (20:46)
[2020-07-11] MEDS: ALPRAZolam 0.25 MG (XANAX) TAB PO PRN (21:44)
[2020-07-11 23:54] VITALS: BP 111/70
[2020-07-12 04:45] VITALS: BP 123/69
[2020-07-12 05:34] LABS: HEMATOCRIT 27 % (40-54); HEMOGLOBIN 8.7 g/dL (13.3-17.7); MEAN CORPUSCULAR HEMOGLOBIN 30 pg (25-34); MEAN CORPUSCULAR HGB CONC 32 g/dL (32-36); MEAN CORPUSCULAR VOLUME 95 fL (80-99); MEAN PLATELET VOLUME 9.7 fL (9.0-12.2); PLATELET COUNT 189 10^3/uL (130-400); WHITE BLOOD COUNT 7.8 10^3/uL (4.3-11.0)
[2020-07-12 05:47] LABS: ALBUMIN 2.5 GM/DL (3.2-4.5)
[2020-07-12 05:48] LABS: CHLORIDE 103 MMOL/L (98-107); POTASSIUM 3.7 MMOL/L (3.6-5.0); SODIUM 138 MMOL/L (135-145)
[2020-07-12 05:49] LABS: CALCIUM 8.6 MG/DL (8.5-10.1)
[2020-07-12 05:50] LABS: GLUCOSE 125 MG/DL (70-105); TOTAL PROTEIN 6.8 GM/DL (6.4-8.2)
[2020-07-12 05:51] LABS: CARBON DIOXIDE 25 MMOL/L (21-32)
[2020-07-12 05:52] LABS: BILIRUBIN,TOTAL 0.6 MG/DL (0.1-1.0)
[2020-07-12] MEDS: inSUlin ASPART (NovoLOG) 1 UNIT/0.01 ML (CHARGE PER UNIT) SC SCH ×4 (05:53→21:20)
[2020-07-12 05:54] LABS: ALKALINE PHOSPHATASE 55 U/L (40-136); CREATININE SERUM 0.68 MG/DL (0.60-1.30); GFR ESTIMATED > 60
[2020-07-12 05:55] LABS: BUN/CREATININE RATIO 22
[2020-07-12 05:57] LABS: ALANINE AMINOTRANSFERASE 12 U/L (0-55)
[2020-07-12] MEDS: MULTIVIT W/MINERALS TAB (THERAGRAN M) PO SCH (06:04)
[2020-07-12] MEDS: RT-ALBUTEROL/IPRATROPIUM 3 ML (DUONEB) VIAL INH SCH ×4 (06:50→19:13)
[2020-07-12] MEDS: RT--FLUTICASONE/SALMETEROL 113-14 (AIRDUO RespiCLICK) IH SCH ×2 (06:50→22:13)
[2020-07-12 07:15] VITALS: BP 109/66
[2020-07-12] MEDS: PIPERACILLIN/TAZOBACTAM (BULK) 4.5 GM in NS (IVPB) 100 ML IV SCH ×3 (08:16→23:25)
[2020-07-12] MEDS: metFORMIN 500 MG (GLUCOPHAGE) TAB PO SCH ×2 (08:16→17:35)
[2020-07-12] MEDS ORDERED: VANCOMYCIN 1 GM/NS 250 ML IVPB IV SCH ×2 (09:00)
[2020-07-12] MEDS: ENOXAPARIN 40 MG/0.4 ML (LOVENOX) SYR SC SCH (09:47)
[2020-07-12] MEDS: guaiFENesin (MUCINEX) 600 MG TAB PO SCH ×2 (09:47→21:20)
--- NOTE | 2020-07-12 11:33 | Physical Therapy Daily Note ---
PT Daily Note-Current Subjective Patient agrees to exercises. Mental Status Attachments: Oxygen (O2 HF), IV Transfers SCALE: Activities may be completed with or without assistive devices. 5-Cphtcgfrhv-hyvbvmq completes the activity by him/herself with no assistance from a helper. 5-Set-up or Clean-up Assistance-helper sets up or cleans up; patient completes activity. [place] assists only prior to or following the activity. 4-Supervision or Touching Assistance-helper provides verbal cues and/or touching/steadying and/or contact guard assistance as patient completes activity. Assistance may be provided throughout the activity or intermittently. 3-Partial/Moderate Assistance-helper does LESS THAN HALF the effort. [place] lifts, holds or supports trunk or limbs, but provides less than half the effort. 2-Substantial/Maximal Assistance-helper does MORE THAN HALF the effort. [place] lifts or holds trunk or limbs and provides more than half the effort. 5-Jbdvvylie-egizbq does ALL the effort. Patient does none of the effort to complete the activity. Or, the assistance of 2 or more helpers is required for the patient to complete the activity. If activity was not attempted, code reason: 7-Patient Refused. 9-Not Applicable-not attempted and the patient did not perform the activity b efore the current illness, exacerbation or injury. 10-Not Attempted due to Environmental Limitations-(lack of equipment, weather restraints, etc.). 88-Not Attempted due to Medical Conditions or Safety Concerns. Sit to Stand (QC): 3 Weight Bearing Full Weight Bearing Full Weight Bearing Gait Training Does the Patient Walk?: No and Walking Goal IS indicated Exercises Seated Therapy Exercises: Ankle pumps, Long arc quads, Hip flexion Seated Reps: 15 Assessment Patient fatigues with minimal activity and remains up in recliner with needs met. PT [facility] Goals Clinical Quality Rn Goals PT [facility] Goals Time Frame: Jul 14, 2020 Roll Left & Right (QC): 6 Sit to Lying (QC): 5 Lying-Sitting on Side/Bed(QC): 5 Sit to Stand (QC): 5 Chair/Gzf-an-Zzqmp Xfer(QC): 5 Does the Patient Walk: Yes Walk 150 ft (QC): 4 PT Plan Treatment/Plan Treatment Plan: Continue Plan of Care Treatment Plan: Bed Mobility, Education, Functional Strength, Therapeutic Exercise, Transfers Treatment Duration: Jul 14, 2020 Frequency: 6 times per week Estimated Hrs Per Day: .25 hour per day Patient and/or Family Agrees t: Yes Time/GCodes Time In: 1102 Time Out: 1112 Total Billed Treatment Time: 10 Total Billed Treatment 1 visit EX 10 min ANA SOLIS PT Jul 12, 2020 11:33
[2020-07-12 11:55] VITALS: BP 112/65
[2020-07-12 16:00] VITALS: BP 129/68
[2020-07-12] MEDS: ACETAMINOPHEN 325 MG TABLET PO PRN (17:35)
[2020-07-12] MEDS: polyethylene glycoL POWDER 17 GM (MIRALAX) PACK PO SCH (17:48)
[2020-07-12] MEDS: ALPRAZolam 0.25 MG (XANAX) TAB PO PRN (18:39)
--- NOTE | 2020-07-12 18:42 | Progress Note ---
Subjective Subjective Date Seen by Provider: Jul 12, 2020 Time Seen by Provider: 09:00 JULIAN IS FEELING SIGNIFICANTLY BETTER TODAY. HE DENIES CHEST PAIN, SHORTNESS OF BREATH, ABDOMINAL PAIN HE DOES COMPLAIN OF FEELING WEAK, BUT OTHERWISE IS MUCH BETTER Review of Systems General: No Chills; Fatigue, Malaise HEENT: No Dysphasia Pulmonary: Dyspnea, Cough Cardiovascular: No: Chest Pain, Palpitations, Edema Gastrointestinal: No: Nausea, Abdominal Pain Genitourinary: Frequency, Incontinence Neurological: Weakness; No: Confusion All Other Systems Reviewed All Other Systems Reviewed: Yes Objective Exam Vital Signs Vital Signs - First Documented 07/06/20 07/07/20 04:00 16:13 Temp 36.6 Pulse 76 Resp 20 B/P (MAP) 115/70 (85) Pulse Ox 94 O2 Delivery Nasal Cannula O2 Flow Rate 4.00 FiO2 36 Capillary Refill : Less Than 3 Seconds General Appearance: No Apparent Distress Eyes: Bilateral Eye Normal Inspection, Bilateral Eye PERRL, Bilateral Eye EOMI HEENT: PERRL/EOMI, Pharynx Normal, Other (TIP OF NOSE SLIGHTLY PURPLE) Neck: Supple Respiratory: Crackles (IN BASES WITH GOOD AIR MOVEMENT IN UPPER LOBES, MUCH IMPROVED); No Respiratory Distress, No Stridor, No Wheezing Cardiovascular: Regular Rate, Rhythm, Systolic Murmur, Gallop/S4 Gastrointestinal: Normal Bowel Sounds, No Organomegaly, No Pulsatile Mass, Non Tender, Soft, Other (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) Rectal: Deferred Back: Normal Inspection, No Vertebral Tenderness Extremity: Non Tender, No Calf Tenderness, No Pedal Edema Neurologic/Psychiatric: Alert, Oriented x3 Skin: Normal Color, Warm/Dry Lymphatic: No Adenopathy Results Lab Laboratory Tests 07/11/20 20:42: Glucometer 182H 07/12/20 05:25: White Blood Count 7.8, Red Blood Count 2.87L, Hemoglobin 8.7L, Hematocrit 27L, Mean Corpuscular Volume 95, Mean Corpuscular Hemoglobin 30, Mean Corpuscular Hemoglobin Concent 32, Red Cell Distribution Width 13.7, Platelet Count 189, Irene n Platelet Volume 9.7, Sodium Level 138, Potassium Level 3.7, Chloride Level 103, Carbon Dioxide Level 25, Anion Gap 10, Blood Urea Nitrogen 15, Creatinine 0.68, Estimat Glomerular Filtration Rate > 60, BUN/Creatinine Ratio 22, Glucose Level 125H, Calcium Level 8.6, Corrected Calcium 9.8, Total Bilirubin 0.6, Aspartate Amino Transf (AST/SGOT) 18, Alanine Aminotransferase (ALT/SGPT) 12, Alkaline Phosphatase 55, Total Protein 6.8, Albumin 2.5L 07/12/20 11:43: Glucometer 134H 07/12/20 16:12: Glucometer 124H Microbiology 07/05/20 Blood Culture - Final, Complete No growth Assessment/Plan Assessment/Plan Admission Dx PNEUMONIA FECAL IMPACTION WITH CHRONIC CONSTIPATION DIABETES MELLITUS IRON DEFICIENCY ANEMIA WEAKNESS Assessment and Plan PNEUMONIA FECAL IMPACTION WITH CHRONIC CONSTIPATION DIABETES MELLITUS IRON DEFICIENCY ANEMIA WEAKNESS PNEUMONIA WITH PLEURAL EFFUSIONS AND NEW ONSET HYPOXIA - PT ON IV ANTIBIOTIC - CEFEPIME FROM ADMISSION - ADDED AZITHROMYCIN 07/09/2020, PRN BREATHING TREATMENTS, ADDED ADVAIR, AND GAVE DOSE OF LASIX 07/09/20 FOR PLEURAL EFFUSIONS. - REPEAT CXR TOMORROW MORNING. - INCENTIVE SPIROMETRY AND ACAPELLA - PT IS DNR/DNI, DOES NOT WANT BIPAP, VAPOTHERM IS AGGRESSIVE JULIAN WOULD LIKE TO GO WITH TREATMENT. - ABX CHANGED TO ZOSYN AND VANC OVER WEEKEND SINCE HE CONTINUED TO DECLINE AND HE IS MUCH IMPROVED. - WILL PLAN FOR SWING BED AT LEAST UNTIL SUNDAY AND THEN BACK TO ALF ON [facility] FECAL IMPACTION WITH CHRONIC CONSTIPATION - DIS-IMPACTION IN THE EMERGENCY DEPARTMENT - LACTULOSE AND SENNA TO CONTINUE. DIABETES MELLITUS - RESUMED METFORMIN - DOSE INCREASED FROM 250MG BID TO 500MG BID, IMPROVED GLUCOSE OFF OF PREDNISONE, PRN INSULIN IRON DEFICIENCY ANEMIA - INFED ON 07/08/2020 - CHECKED IRON PANEL - % SAT OF 9 WEAKNESS - STARTED PHYSICAL THERAPY - DISCUSSED WITH PT AND HIS DTR - WILL NEED TO GO BACK ON SKILLED THERAPY TO [facility] INSTEAD OF ASSISTED LIVING. Admission Dx PNEUMONIA FECAL IMPACTION WITH CHRONIC CONSTIPATION DIABETES MELLITUS IRON DEFICIENCY ANEMIA WEAKNESS Clinical Quality Measures Admission Status Admission Dx PNEUMONIA FECAL IMPACTION WITH CHRONIC CONSTIPATION DIABETES MELLITUS IRON DEFICIENCY ANEMIA WEAKNESS TAB FINCH MD Jul 12, 2020 18:42
[2020-07-12 20:00] VITALS: BP 122/66
[2020-07-12 23:32] VITALS: BP 112/68
[2020-07-13 03:28] VITALS: BP 123/58
[2020-07-13] MEDS: MULTIVIT W/MINERALS TAB (THERAGRAN M) PO SCH (05:50)
[2020-07-13] MEDS: inSUlin ASPART (NovoLOG) 1 UNIT/0.01 ML (CHARGE PER UNIT) SC SCH (05:50)
[2020-07-13] MEDS: RT-ALBUTEROL/IPRATROPIUM 3 ML (DUONEB) VIAL INH SCH (06:45)
[2020-07-13] MEDS: RT--FLUTICASONE/SALMETEROL 113-14 (AIRDUO RespiCLICK) IH SCH (06:45)
[2020-07-13 07:50] VITALS: BP 119/71
[2020-07-13] MEDS ORDERED: TROUGH ORDER-PHARMACY XX NR (08:00)
[2020-07-13] MEDS: PIPERACILLIN/TAZOBACTAM (BULK) 4.5 GM in NS (IVPB) 100 ML IV SCH (08:43)
[2020-07-13] MEDS: guaiFENesin (MUCINEX) 600 MG TAB PO SCH (08:43)
[2020-07-13] MEDS: metFORMIN 500 MG (GLUCOPHAGE) TAB PO SCH (08:43)
--- NOTE | 2020-07-13 09:25 | Discharge Summary ---
Diagnosis/Chief Complaint Date of Admission July 05, 2020 at 16:21 Date of Discharge Reason Hospital Visit PT IS AN 89 Y/O MALE WHO IS KNOWN TO ME FROM CLINIC. HE PRESENTED TO THE HOSPITAL WITH COMPLAINT OF SIGNIFICANT ABDOMINAL PAIN AND SHORTNESS OF BREATH. HE REPORTS THAT HE IS FEELING BETTER NOW SINCE HE WAS DISIMPACTED IN THE EMERGENCY DEPARTMENT. HE REPORTS THAT HE HAD A SIGNIFICANT COUGHING EPISODE. HE REPORTS THAT HE IS VERY WEAK AND IS WONDERING ABOUT THERAPY. Discharge Summary Discharge Physical Examination Allergies: Coded Allergies: No Known Drug Allergies (Unverified , 07/30/12) Vitals & I&Os Vital Signs Date Time Temp Pulse Resp B/P (MAP) Pulse Ox O2 Delivery O2 Flow Rate FiO2 07/13/20 07:50 36.8 90 24 119/71 (87) 92 High Flow N/C 4.00 07/11/20 18:52 50 Hospital Course Pending Labs Laboratory Tests 07/13/20 05:49: Glucometer 105 07/13/20 07:12: Vancomycin Level Trough 9.5 Discharge Instructions to patient/family Please see electronic discharge instructions given to patient. Discharge Medications Reviewed and agree with Discharge Medication list on patient's Discharge Instruction sheet TAB FINCH MD Jul 13, 2020 09:25
--- NOTE | 2020-07-13 09:33 | Diagnostic Imaging Report ---
EXAMINATION: PA and lateral chest at 9:01 AM INDICATION: Pneumonia The heart is stable in size when compared to the prior exam of 07/10/2020. The previous study did show bibasilar pneumonia/atelectasis superimposed on the patient's underlying chronic pulmonary disease. On this exam, the periphery of the left lung does seem better aerated. There is still a small amount of residual pneumonia/atelectasis present in this area. There also appears to be some residual atelectasis/infiltrate and fluid in the left lung base. The abnormal density involving the right lung and the small right pleural effusion seen previously are essentially no different. The upper lungs remain clear. The mediastinum is not widened. The osseous structures are intact. IMPRESSION: The appearance of the chest has improved as the left lung base does seem better aerated. However, there is still involvement of both lower lobes by pneumonia/atelectasis and fluid, particularly the right lung. A follow-up study would be recommended for continued evaluation. Dictated by: Dictated on workstation # [id number]
[2020-07-13] MEDS ORDERED: LACTOBACILLUS ACIDOPHILUS (PROBIOTIC) CAPSULE PO SCH (10:00)
[2020-07-13] MEDS ORDERED: TAMSULOSIN 0.4 MG (FLOMAX) CAP PO SCH (18:00)
[2020-07-13] MEDS ORDERED: ALPRAZolam 0.25 MG (XANAX) TAB PO SCH (18:00)
[2020-07-13] MEDS ORDERED: VANCOMYCIN INJECTION 750 MG in NS (IVPB) 250 ML IV SCH (21:00)
[2020-07-14] MEDS ORDERED: TROUGH ORDER-PHARMACY XX NR (20:00)
== END 2020-07-13 09:30 | disposition swing bed (61) | DRG 193 ==
LOC: EDUNIT# 13:34 → ER 13:38 → 4TH 16:21
PROVIDERS: ADMIT Family Medicine; ATTEND Family Medicine
DX: J18.9 Pneumonia, unspecified organism (principal); J96.00 Acute respiratory failure, unspecified whether with hypoxia or hypercapnia; K40.30 Unilateral inguinal hernia, with obstruction, without gangrene, not specified as recurrent; J44.0 Chronic obstructive pulmonary disease with (acute) lower respiratory infection; D50.8 Other iron deficiency anemias; K59.09 Other constipation; E11.9 Type 2 diabetes mellitus without complications; R32 Unspecified urinary incontinence; Z66 Do not resuscitate; R53.1 Weakness; M19.91 Primary osteoarthritis, unspecified site; Z99.81 Dependence on supplemental oxygen; Z87.891 Personal history of nicotine dependence; Z86.16 Personal history of COVID-19; Z79.84 Long term (current) use of oral hypoglycemic drugs; Z79.82 Long term (current) use of aspirin
CPT/HCPCS: 36410; 36415; 71045; 71046; 74176; 76937; 80048; 80053; 80202; 82274; 82728; 82947; 83540; 83550; 83605; 83880; 84145; 85007; 85014; 85018; 85025; 85027; 87040; 94640; 94760

== ENCOUNTER 2020-07-13 09:31 | Inpatient (IN) | payer MEDICARE, BC ==
[~2020-07-13] VITALS: Ht 180 cm; Wt 63.3 kg
[~2020-07-13 09:31] MED LIST changes: +ACET-168 PO; +IBUP-2473 PO; +LACT20SO2 PO
--- NOTE | 2020-07-13 09:31 | History & Physicial ---
History of Present Illness History of Present Illness Date of Admission I consulted on this patient on 07/13/20 09:31 Attending Physician Tab Mansfield MD Admitting Physician Tab Mansfield MD Consult Allergies and Home Medications Allergies Coded Allergies: No Known Drug Allergies (Unverified , 07/30/12) Home Medications Acetaminophen 500 Mg Tablet, 1,000 MG PO Q8H PRN for PAIN-MILD (1-4) OR TEMPATURE, (Reported) Albuterol Sulfate 2.5 Mg/0.5 Ml Vial.neb, 2.5 MG INH Q4H PRN for SHORTNESS OF BREATH, (Reported) Aspirin 81 Mg Tab.chew, 81 MG PO DAILY, (Reported) Ferrous Sulfate 325 Mg Tablet, 325 MG PO BID, (Reported) Ibuprofen 200 Mg Tablet, 400 MG PO Q8H PRN for PAIN-MILD (1-4), (Reported) Lactulose 20 Gm/30 Ml Solution, 30 ML PO DAILY PRN for CONSTIPATION-3RD LINE, (Reported) Metformin HCl 500 Mg Tablet, 250 MG PO BID, (Reported) TAKES (500MG) TAB Multivitamins with Iron 1 Each Tablet, 1 EACH PO DAILY, (Reported) Sennosides/Docusate Sodium 1 Each Tablet, 1 EACH PO BID PRN for CONSTIPATION-6TH LINE, (Reported) Past Nfiwuxn-Jvesyy-Hywdin Hx Patient Social History Former Smoker, Quit: Feb 06, 2004 2nd Hand Smoke Exposure: No Recent Hopitalizations: No Immunizations Up To Date Date of Pneumonia Vaccine: Nov 26, 2015 Date of Influenza Vaccine: Nov 18, 2019 Seasonal Allergies Seasonal Allergies: No Surgeries Yes (left ankle surgery) Orthopedic Respiratory Yes (nocturnal hypoxia, history COVID-19) COPD Currently Using CPAP: No Currently Using BIPAP: No Cardiovascular No Neurological No Genitourinary No Gastrointestinal Yes (lg hernia in the scotum, states never bothered him, increases with lifting) Chronic Constipation Musculoskeletal No Arthritis Endocrine History of Endocrine Disorders: No HEENT History of HEENT Disorders: No Loss of Vision: Denies Hearing Impairment: Denies Cancer No Psychosocial History of Psychiatric Problem: No Integumentary History of Skin or Integumenta: No Family Medical History Significant Family History: Hypertension Family Hx: Patient reports no known family medical history. Physical Exam Vital Signs Capillary Refill : Height, Weight, BMI Height: 5'11.00" Weight: 157lbs. oz. [id number]; 19.13 BMI Method:Stated TAB MANSFIELD MD Jul 13, 2020 09:31
[2020-07-13] MEDS ORDERED: RT-ALBUTEROL/IPRATROPIUM 3 ML (DUONEB) VIAL INH PRN ×2 (09:45→23:15)
[2020-07-13] MEDS ORDERED: RT-ALBUTEROL SULF 2.5 MG/3 ML PRE-MIX VIAL IH PRN (09:45)
[2020-07-13] MEDS ORDERED: LACTULOSE SYRUP 10GM/15ML (ENULOSE) 30ML UDC PO PRN (09:45)
[2020-07-13] MEDS ORDERED: SENNA W/DOCUSATE (SENOKOT S) TABLET PO PRN (09:45)
[2020-07-13] MEDS ORDERED: guaiFENesin/CODEINE (ROBITUSSIN AC) 10ML UDC PO PRN (09:45)
[2020-07-13] MEDS ORDERED: ACETAMINOPHEN 325 MG TABLET PO PRN (09:45)
[2020-07-13] MEDS: ENOXAPARIN 40 MG/0.4 ML (LOVENOX) SYR SC SCH (09:55)
--- NOTE | 2020-07-13 10:15 | Physical Therapy Evaluation ---
PT Evaluation-General Medical Diagnosis Admission Date July 13, 2020 Medical Diagnosis: pneumonia Onset Date: Jul 06, 2020 Therapy Diagnosis Therapy Diagnosis: debility/weakness Height/Weight Height (Feet): 5 Height (Inches): 11.00 Weight (Pounds): 157 Precautions Precautions/Isolations: Contact Isolation, Standard Precautions Referral Physician: Donal Reason for Referral: Evaluation/Treatment Medical History Pertinent Medical History: Arthritis, COPD, OA Additional Medical History large (B) inguinal hernias with swollen scrotum; chronic constipation Diabetes Current History Pt admitted through ER secondary to shortness of breath, progressive weakness, and bowel impaction. Pt resides at [facility]. Social History Home: Assisted Living Prior Prior Level of Function SCALE: Activities may be completed with or without assistive devices. 7-Bzwewrbcce-mgebgld completes the activity by him/herself with no assistance from a helper. 5-Set-up or Clean-up Assistance-helper sets up or cleans up; patient completes activity. [place] assists only prior to or following the activity. 4-Supervision or Touching Assistance-helper provides verbal cues and/or touching/steadying and/or contact guard assistance as patient completes activity. Assistance may be provided throughout the activity or intermittently. 3-Partial/Moderate Assistance-helper does LESS THAN HALF the effort. [place] lifts, holds or supports trunk or limbs, but provides less than half the effort. 2-Substantial/Maximal Assistance-helper does MORE THAN HALF the effort. [place] lifts or holds trunk or limbs and provides more than half the effort. 4-Cdmxzwaxh-ezngal does ALL the effort. Patient does none of the effort to complete the activity. Or, the assistance of 2 or more helpers is required for the patient to complete the activity. If activity was not attempted, code reason: 7-Patient Refused. 9-Not Applicable-not attempted and the patient did not perform the activity before the current illness, exacerbation or injury. 10-Not Attempted due to Environmental Limitations-(lack of equipment, weather restraints, etc.). 88-Not Attempted due to Medical Conditions or Safety Concerns. Bed Mobility: 6 Transfers (B,C,W/C): 6 Gait: 6 Stairs: 9 Indoor Mobility (Ambulation): Independent Stairs: Not Applicalbe Prior Devices Use: Walker PT Evaluation-Current Subjective Patient agrees to PT. Objective Patient Orientation: Normal For Age Attachments: Oxygen ROM/Strength ROM Lower Extremities bilateral LE WFL Strength Lower Extremities 3/5 grossly bilateral LE Integumentary/Posture Integumentary refer to nursing notes Bladder Incontinence: Yes Posture severe kyphosis Neuromuscular (Tone, Coordination, Reflexes) grossly intact Sensory Vision: Functional Hearing: Impaired Transfers Roll Left & Right (QC): 3 Sit to Lying (QC): 3 Lying to Sitting/Side of Bed(Q: 3 Sit to Stand (QC): 3 Chair/Gki-qn-Kgatg Xfer(QC): 3 Toilet Transfer (QC): 3 Car Transfer (QC): 3 (simulated) Gait Does the Patient Walk?: Yes Mode of Locomotion: Walk Anticipated Mode of Locomotion: Walk Walk 10 feet (QC): 3 Walk 50 ft with 2 Turns(QC): 88 Walk 150 ft (QC): 88 Walking 10ft/uneven surface-QC: 3 Distance: 15' x 2 Gait Assistive Device: FWW Comments/Gait Description shuffle gait sequence Wheelchair Training Wheel 50 ft with 2 turns (QC): 9 Wheel 150 ft (QC): 9 Stairs 1 Step (curb) (QC): 9 4 Steps (QC): 9 12 Steps (QC): 9 Balance Sitting Static: Normal Sitting Dynamic: Normal Standing Static: Fair Standing Dynamic: Fair Picking up an Object (QC): 88 Treatment Ambulation in room with FWW minimal assist 15 ' x 2 with Fair balance. bilateral LE exercises 15 reps x 2 sets AP, LAQ, hip flexion Assessment/Needs 89 y.o. male, will benefit from skilled PT to address functional strength and mobility to improve current LOF to safely return to AL at maximum LOF. Rehab Potential: Fair PT Assisted Goals Dope Worker Goals PT Dope Worker Goals Time Frame: Jul 31, 2020 Roll Left & Right (QC): 6 Sit to Lying (QC): 6 Lying-Sitting on Side/Bed(QC): 6 Sit to Stand (QC): 6 Chair/Iyy-vu-Ntrds Xfer(QC): 6 Toilet Transfer (QC): 6 Car Transfer (QC): 6 Does the Patient Walk: Yes Walk 10 feet (QC): 6 Walk 50ft with 2 Turns (QC): 6 Walk 150 ft (QC): 6 Walking 10ft on Uneven Surface: 6 1 Step (curb) (QC): 9 4 Steps (QC): 9 12 Steps (QC): 9 Picking up an Object (QC): 6 Wheel 50 feet with 2 turns (QC: 9 Wheel 150 feet: 9 PT Plan Problem List Problem List: Activity Tolerance, Functional Strength, Safety, Balance, Gait, Transfer, Bed Mobility Treatment/Plan Treatment Plan: Continue Plan of Care Treatment Plan: Bed Mobility, Education, Functional Activity Dariana, Functional Strength, Gait, Safety, Therapeutic Exercise, Transfers Treatment Duration: Jul 31, 2020 Frequency: 6 times per week Estimated Hrs Per Day: .25 hour per day Patient and/or Family Agrees t: Yes Time/GCodes Time In: 931 Time Out: 954 Total Billed Treatment Time: 23 Total Billed Treatment 1 visit EVModC 8 min FA 15 min ANA SOLIS PT Jul 13, 2020 10:15
[2020-07-13] MEDS: inSUlin ASPART (NovoLOG) 1 UNIT/0.01 ML (CHARGE PER UNIT) SC SCH ×3 (11:20→20:07)
--- NOTE | 2020-07-13 11:42 | Occupational Therapy Eval ---
OT Evaluation-General/PLF Medical Diagnosis Admission Date Jul 13, 2020 at 09:31 Medical Diagnosis: pneumonia Onset Date: Jul 06, 2020 Therapy Diagnosis Therapy Diagnosis: Decreased ADL status Height/Weight Height (Feet): 5 Height (Inches): 11.00 Weight (Pounds): 157 Precautions Precautions/Isolations: Contact Isolation, Standard Precautions Referral Physician: Donal Referral Reason: Activity Tolerance, Self Care, Evaluation/Treatment, Strengthening/ROM Medical History Pertinent Medical History: Arthritis, COPD, OA Additional Medical History PNA, debility/ weakness Current History COPD, arthritis Reviewed History: Yes Social History Home: Assisted Living ADL-Prior Level of Function SCALE: Activities may be completed with or without assistive devices. 4-Glmxhqnwcf-kywdknm completes the activity by him/herself with no assistance from a helper. 5-Set-up or Clean-up Assistance-helper sets up or cleans up; patient completes activity. Bailey assists only prior to or following the activity. 4-Supervision or Touching Assistance-helper provides verbal cues and/or to uching/steadying and/or contact guard assistance as patient completes activity. Assistance may be provided throughout the activity or intermittently. 3-Partial/Moderate Assistance-helper does LESS THAN HALF the effort. Bailey lifts, holds or supports trunk or limbs, but provides less than half the effort. 2-Substantial/Maximal Assistance-helper does MORE THAN HALF the effort. Bailey lifts or holds trunk or limbs and provides more than half the effort. 8-Jekrgepar-ohzxhm does ALL the effort. Patient does none of the effort to complete the activity. Or, the assistance of 2 or more helpers is required for the patient to complete the activity. If activity was not attempted, code reason: 7-Patient Refused. 9-Not Applicable-not attempted and the patient did not perform the activity before the current illness, exacerbation or injury. 10-Not Attempted due to Environmental Limitations-(lack of equipment, weather restraints, etc.). 88-Not Attempted due to Medical Conditions or Safety Concerns. ADL PLOF Comments States requires mod A with LB washing/ dressing at [facility], pt completes other ADLs with mod I with use of walker. Expresses "I do a sit up" to doff socks in bed. Self Care: Needed Some Help Functional Cognition: Independent DME/Equipment Comments Pt uses walker at [facility] Occupation: retired Drive Self: No OT Current Status Subjective Pt upright in recliner, AxO. Agrees to tx. Pt getting sponge bath, OT takes over sponge bath. Mental Status/Objective Patient Orientation: Person, Place, Situation Attachments: Oxygen Current Glasses/Contacts: No Hearing Aids: No Dentures/Partials: No Hand Dominance: Right Upper Extremity ROM WFL BUE Upper Extremity Coordination WFL BUE Upper Extremity Sensation WFL BUE Upper Extremity Strength Decreased BUE ADL-Treatment Eating (QC): 6 Oral Hygiene (QC): 6 Shower/Bathe Self (QC): 3 (A with bottom and LB) Upper Body Dressing (QC): 3 (min A gown doff/ donning.) Lower Body Dressing (QC): 7 (denies breif donning- icnreased scrotal swelling.) On/Off Footwear (QC): 3 (mod A this date.) Toileting Hygiene (QC): 1 (TD with prep of urinal/ holding/ clean up and max A bottom hygiene in stance.) Other Treatments Pt agrees to tx. Education provided on OT role and SWB status/ therapy. Pt lives in [facility], is provided meals and assist in showering, some dressing. Pt completes bathing/ dressing as outlined. CGA for sit to stand and CGA during steps to HOB. Pt sits, min A reaching supine, requires Ax2 to position in bed. Pt is left in room with all needs met, call light in reach, daughter present end of session. Education OT Patient Education: Correct positioning, Purpose of tx/functional activities, Safety issues, Transfer techniques Teaching Recipient: Patient Teaching Methods: Demonstration, Discussion Response to Teaching: Verbalize Understanding, Return Demonstration OT Building Operator Goals Care Home Goals Time Frame: Jul 27, 2020 Eating (QC): 6 Oral Hygiene (QC): 6 Toileting Hygiene (QC): 3 Shower/Bathe Self (QC): 3 Upper Body Dressing (QC): 6 Lower Body Dressing (QC): 3 On/Off Footwear (QC): 6 Additional Goals: 1-Demonstrate ADL Tasks, 2-Verbalize Understanding, 3- ImproveStrength/Dariana 1=Demonstrate adherence to instructed precautions during ADL tasks. 2=Patient will verbalize/demonstrate understanding of assistive devices/modific ations for ADL. 3=Patient will improve strength/tolerance for activity to enable patient to perform ADL's. OT Education/Plan Problem List/Assessment Assessment: Decreased Activ Tolerance, Decreased UE Strength, Dependent Transfers, Edema, Impaired Bed Mobility, Impaired Funct Balance, Impaired I ADL's, Impaired Self-Care Skills Discharge Recommendations Plan/Recommendations: Continue POC Therapy Discharge Recommendati: Assisted Living Treatment Plan/Plan of Care Treatment,Training & Education: Yes Patient would benefit from OT for education, treatment and training to promote independence in ADL's, mobility, safety and/or upper extremity function for ADL's. Plan of Care: ADL Retraining, Functional Mobility, UE Funct Exercise/Act Treatment Duration: Jul 27, 2020 Frequency: 5 times per week Estimated Hrs Per Day: .25 hour per day Agreement: Yes Rehab Potential: Fair Time/GCodes Start Time: 11:05 Stop Time: 11:34 Total Time Billed (hr/min): 29 Billed Treatment Time 1, EVM, ADL (29) ANA MARTINEZ OTR Jul 13, 2020 11:42
[2020-07-13] MEDS: LACTOBACILLUS ACIDOPHILUS (PROBIOTIC) CAPSULE PO SCH ×2 (13:31→18:07)
[2020-07-13] MEDS: RT-ALBUTEROL/IPRATROPIUM 3 ML (DUONEB) VIAL INH SCH ×3 (14:43→18:17)
[2020-07-13] MEDS: PIPERACILLIN/TAZOBACTAM (BULK) 4.5 GM in NS (IVPB) 100 ML IV SCH ×2 (17:02→23:28)
[2020-07-13 17:27] VITALS: BP 123/68
[2020-07-13] MEDS: TAMSULOSIN 0.4 MG (FLOMAX) CAP PO SCH (18:06)
[2020-07-13] MEDS: metFORMIN 500 MG (GLUCOPHAGE) TAB PO SCH (18:07)
[2020-07-13] MEDS: ALPRAZolam 0.25 MG (XANAX) TAB PO SCH (18:07)
[2020-07-13] MEDS: RT--FLUTICASONE/SALMETEROL 113-14 (AIRDUO RespiCLICK) IH SCH (18:18)
[2020-07-13] MEDS: polyethylene glycoL POWDER 17 GM (MIRALAX) PACK PO SCH (21:29)
[2020-07-13] MEDS: guaiFENesin (MUCINEX) 600 MG TAB PO SCH (21:29)
[2020-07-13] MEDS: VANCOMYCIN INJECTION 750 MG in NS (IVPB) 250 ML IV SCH (21:29)
[2020-07-13 22:54] VITALS: BP 123/35
[2020-07-14] MEDS: RT-ALBUTEROL/IPRATROPIUM 3 ML (DUONEB) VIAL INH SCH ×6 (02:09→21:21)
[2020-07-14] MEDS: inSUlin ASPART (NovoLOG) 1 UNIT/0.01 ML (CHARGE PER UNIT) SC SCH ×4 (05:20→21:15)
[2020-07-14 05:21] VITALS: BP 116/62
[2020-07-14] MEDS: MULTIVIT W/MINERALS TAB (THERAGRAN M) PO SCH (06:35)
[2020-07-14] MEDS: RT--FLUTICASONE/SALMETEROL 113-14 (AIRDUO RespiCLICK) IH SCH ×2 (07:05→19:24)
--- NOTE | 2020-07-14 08:40 | Progress Note ---
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 - REPEAT CXR TOMORROW MORNING. - INCENTIVE SPIROMETRY AND ACAPELLA - PT IS DNR/DNI, DOES NOT WANT BIPAP, VAPOTHERM IS AGGRESSIVE JULIAN WOULD LIKE TO GO WITH TREATMENT. - ABX CHANGED TO ZOSYN AND VANC OVER WEEKEND SINCE HE CONTINUED TO DECLINE AND HE IS MUCH IMPROVED. - WILL PLAN FOR SWING BED AT LEAST UNTIL SUNDAY AND THEN [facility] FECAL IMPACTION WITH CHRONIC CONSTIPATION - DIS-IMPACTION IN THE EMERGENCY DEPARTMENT - LACTULOSE AND SENNA TO CONTINUE. DIABETES MELLITUS - RESUMED METFORMIN - DOSE INCREASED FROM 250MG BID TO 500MG BID, IMPROVED GLUCOSE OFF OF PREDNISONE, PRN INSULIN IRON DEFICIENCY ANEMIA - INFED ON 07/08/2020 - CHECKED IRON PANEL - % SAT OF 9 WEAKNESS - STARTED PHYSICAL THERAPY - DISCUSSED WITH PT AND HIS DTR - WILL NEED TO GO BACK ON SKILLED THERAPY TO [facility] INSTEAD OF ASSISTED LIVING. Date of Exam:07/13/20 CHEST PA/LAT (2 VIEW) EXAMINATION: PA and lateral chest at 9:01 AM INDICATION: Pneumonia The heart is stable in size when compared to the prior exam of 07/10/2020. The previous study did show bibasilar pneumonia/atelectasis superimposed on the patient's underlying chronic pulmonary disease. On this exam, the periphery of the left lung does seem better aerated. There is still a small amount of resid ual pneumonia/atelectasis present in this area. There also appears to be some residual atelectasis/infiltrate and fluid in the left lung base. The abnormal density involving the right lung and the small right pleural effusion seen previously are essentially no different. The upper lungs remain clear. The mediastinum is not widened. The osseous structures are intact. IMPRESSION: The appearance of the chest has improved as the left lung base does seem better aerated. However, there is still involvement of both lower lobes by pneumonia/atelectasis and fluid, particularly the right lung. A follow-up study would be recommended for continued evaluation. TAB FINCH MD Jul 14, 2020 08:40
[2020-07-14] MEDS: LACTOBACILLUS ACIDOPHILUS (PROBIOTIC) CAPSULE PO SCH ×3 (08:41→17:13)
[2020-07-14] MEDS: guaiFENesin (MUCINEX) 600 MG TAB PO SCH ×2 (08:41→19:43)
[2020-07-14] MEDS: metFORMIN 500 MG (GLUCOPHAGE) TAB PO SCH ×2 (08:41→17:13)
[2020-07-14] MEDS: ENOXAPARIN 40 MG/0.4 ML (LOVENOX) SYR SC SCH (08:41)
--- NOTE | 2020-07-14 09:14 | Physical Therapy Daily Note ---
PT Daily Note-Current Subjective Patient in bed pre tx, agrees to PT, has no complaints of pain at rest. Appearance Patient in recliner post tx with nurse call, phone, tray, all needs met. Mental Status Patient Orientation: Person, Place, Situation Attachments: Oxygen Transfers SCALE: Activities may be completed with or without assistive devices. 0-Ovwesgjzuc-vogrzzw completes the activity by him/herself with no assistance from a helper. 5-Set-up or Clean-up Assistance-helper sets up or cleans up; patient completes activity. [place] assists only prior to or following the activity. 4-Supervision or Touching Assistance-helper provides verbal cues and/or touching/steadying and/or contact guard assistance as patient completes activity. Assistance may be provided throughout the activity or intermittently. 3-Partial/Moderate Assistance-helper does LESS THAN HALF the effort. [place] lifts, holds or supports trunk or limbs, but provides less than half the effort. 2-Substantial/Maximal Assistance-helper does MORE THAN HALF the effort. [place] lifts or holds trunk or limbs and provides more than half the effort. 4-Junlyjiju-goyvkf does ALL the effort. Patient does none of the effort to complete the activity. Or, the assistance of 2 or more helpers is required for the patient to complete the activity. If activity was not attempted, code reason: 7-Patient Refused. 9-Not Applicable-not attempted and the patient did not perform the activity before the current illness, exacerbation or injury. 10-Not Attempted due to Environmental Limitations-(lack of equipment, weather restraints, etc.). 88-Not Attempted due to Medical Conditions or Safety Concerns. Roll Left & Right (QC): 4 Lying to Sitting/Side of Bed(Q: 3 Sit to Stand (QC): 3 Chair/Oos-xe-Lenll Xfer(QC): 4 Patient needed mod assist for supine to sit and assist to scoot forward to the edge of the bed, patient was able to stand with min assist and ambulate across the room to the recliner, turn, and sit with cues for hand placement. Gait Training Does the Patient Walk?: Yes Distance: 10' Walk 10 feet (QC): 4 Gait Persons Needed: 1 Gait Assistive Device: FWW very slow ambulation but no LOB Exercises Seated Therapy Exercises: Ankle pumps, Long arc quads Seated Reps: 20 Treatments bed mobility and transfers, ambulation, LE exercise Assessment Current Status: Poor Progress less distance of ambulation, patient states he doesn't think he can walk as far today PT Pantograph Setter Goals Pantograph Setter Goals PT Long-Term Goals Time Frame: Jul 31, 2020 Roll Left & Right (QC): 6 Sit to Lying (QC): 6 Lying-Sitting on Side/Bed(QC): 6 Sit to Stand (QC): 6 Chair/Ouq-dv-Bjqdi Xfer(QC): 6 Toilet Transfer (QC): 6 Car Transfer (QC): 6 Does the Patient Walk: Yes Walk 10 feet (QC): 6 Walk 50ft with 2 Turns (QC): 6 Walk 150 ft (QC): 6 Walking 10ft on Uneven Surface: 6 1 Step (curb) (QC): 9 4 Steps (QC): 9 12 Steps (QC): 9 Picking up an Object (QC): 6 Wheel 50 feet with 2 turns (QC: 9 Wheel 150 feet: 9 PT Plan Problem List Problem List: Activity Tolerance, Functional Strength, Safety, Balance, Gait, Transfer, Bed Mobility, ROM Treatment/Plan Treatment Plan: Continue Plan of Care Treatment Plan: Bed Mobility, Education, Functional Activity Dariana, Functional Strength, Gait, Safety, Therapeutic Exercise, Transfers Treatment Duration: Jul 31, 2020 Frequency: 6 times per week Estimated Hrs Per Day: .25 hour per day Patient and/or Family Agrees t: Yes Safety Risks/Education Patient Education: Gait Training, Transfer Techniques, Correct Positioning, Safety Issues Teaching Recipient: Patient Teaching Methods: Demonstration, Discussion Response to Teaching: Reinforcement Needed Time/GCodes Time In: 814 Time Out: 830 Total Billed Treatment Time: 16 Total Billed Treatment 1 visit FA ZAFAR CEE PT Jul 14, 2020 09:14
[2020-07-14] MEDS: VANCOMYCIN INJECTION 750 MG in NS (IVPB) 250 ML IV SCH ×2 (09:35→21:15)
[2020-07-14] MEDS: PIPERACILLIN/TAZOBACTAM (BULK) 4.5 GM in NS (IVPB) 100 ML IV SCH ×3 (09:35→23:45)
--- NOTE | 2020-07-14 12:00 | Occupational Ther Daily Note ---
OT Current Status-Daily Note Subjective Pt alert, sitting in recliner. Pt agrees to therapy. C/o fatigue. Mental Status/Objective Patient Orientation: Person, Place, Time, Situation Attachments: IV, Oxygen ADL-Treatment Pt requested to use urinal. When asked if he would stand to complete, pt stated that he can't stand. Urinal was placed, held and emptied by FIORE. Therapy Code Descriptions/Definitions Functional Thornton Measure: 0=Not Assessed/NA 4=Minimal Assistance 1=Total Assistance 5=Supervision or Setup 2=Maximal Assistance 6=Modified [place] 3=Moderate Assistance 7=Complete IndependenceSCALE: Activities may be completed with or without assistive devices. 2-Mzkkspjxtu-zjvckin completes the activity by him/herself with no assistance from a helper. 5-Set-up or Clean-up Assistance-helper sets up or cleans up; patient completes activity. [place] assists only prior to or following the activity. 4-Supervision or Touching Assistance-helper provides verbal cues and/or touching/steadying and/or contact guard assistance as patient completes activity. Assistance may be provided throughout the activity or intermittently. 3-Partial/Moderate Assistance-helper does LESS THAN HALF the effort. [place] lifts, holds or supports trunk or limbs, but provides less than half the effort. 2-Substantial/Maximal Assistance-helper does MORE THAN HALF the effort. [place] lifts or holds trunk or limbs and provides more than half the effort. 9-Plbmvgmcb-xxlbqj does ALL the effort. Patient does none of the effort to complete the activity. Or, the assistance of 2 or more helpers is required for the patient to complete the activity. If activity was not attempted, code reason: 7-Patient Refused. 9-Not Applicable-not attempted and the patient did not perform the activity before the current illness, exacerbation or injury. 10-Not Attempted due to Environmental Limitations-(lack of equipment, weather restraints, etc.). 88-Not Attempted due to Medical Conditions or Safety Concerns. Toileting Hygiene (QC): 2 Other Treatment HEP and medium resistance theraband given to pt to increase B UE strength for daily functional tasks. Skilled instructions given for correct technique. Pt demonstrated understanding of 4 out of 6 exercises due to fatigue. Pt able to complete 10 reps 1 set of each exercises completed. After session, pt sitting in recliner with call light/phone in reach. Daughter present in room. OT Senior Care Goals Radar Signal Processing Engineer Goals Time Frame: Jul 27, 2020 Eating (QC): 6 Oral Hygiene (QC): 6 Toileting Hygiene (QC): 3 Shower/Bathe Self (QC): 3 Upper Body Dressing (QC): 6 Lower Body Dressing (QC): 3 On/Off Footwear (QC): 6 Additional Goals: 1-Demonstrate ADL Tasks, 2-Verbalize Understanding, 3- ImproveStrength/Dariana 1=Demonstrate adherence to instructed precautions during ADL tasks. 2=Patient will verbalize/demonstrate understanding of assistive devices/modifications for ADL. 3=Patient will improve strength/tolerance for activity to enable patient to perform ADL's. OT Education/Plan Problem List/Assessment Assessment: Decreased Activ Tolerance, Decreased UE Strength Discharge Recommendations Plan/Recommendations: Continue POC Treatment Plan/Plan of Care Patient would benefit from OT for education, treatment and training to promote independence in ADL's, mobility, safety and/or upper extremity function for ADL's. Plan of Care: ADL Retraining, Functional Mobility, UE Funct Exercise/Act Treatment Duration: Jul 27, 2020 Frequency: 5 times per week Estimated Hrs Per Day: .25 hour per day Agreement: Yes Rehab Potential: Fair Time/GCodes Start Time: 11:30 Stop Time: 11:50 Total Time Billed (hr/min): 20 Billed Treatment Time 1 visit-FA 1 (20 min) JOSE KIRKPATRICK Jul 14, 2020 12:00
[2020-07-14] MEDS: ALPRAZolam 0.25 MG (XANAX) TAB PO SCH ×2 (17:13→18:34)
[2020-07-14] MEDS: TAMSULOSIN 0.4 MG (FLOMAX) CAP PO SCH (17:14)
[2020-07-14 18:00] VITALS: BP 118/69
[2020-07-14] MEDS: polyethylene glycoL POWDER 17 GM (MIRALAX) PACK PO SCH (19:42)
[2020-07-14] MEDS ORDERED: TROUGH ORDER-PHARMACY XX NR (20:00)
[2020-07-15] MEDS: RT-ALBUTEROL/IPRATROPIUM 3 ML (DUONEB) VIAL INH SCH ×3 (02:57→11:21)
[2020-07-15 05:04] VITALS: BP 145/74
[2020-07-15] MEDS: inSUlin ASPART (NovoLOG) 1 UNIT/0.01 ML (CHARGE PER UNIT) SC SCH ×2 (05:08→11:21)
[2020-07-15] MEDS: MULTIVIT W/MINERALS TAB (THERAGRAN M) PO SCH (05:49)
[2020-07-15] MEDS: RT--FLUTICASONE/SALMETEROL 113-14 (AIRDUO RespiCLICK) IH SCH (06:41)
--- NOTE | 2020-07-15 07:54 | Therapy Team Discharge Summary ---
Therapy Discharge Summary Discharge Recommendations Date of Discharge Physical Therapy Patient seen x 2 sessions on SWB status and will dismiss to AL for continued care and therapy. Patient needed mod assist for supine to sit and assist to scoot forward to the edge of the bed, patient was able to stand with min assist and ambulate across the room to the recliner, turn, and sit with cues for hand placement. Goals were being addressed, however, not attained. Occupational Therapy Decreased Activ Tolerance, Decreased UE Strength PT Intermediate Goals Intermediate Goals PT Private Tutor Goals Time Frame: Jul 31, 2020 Roll Left to Right (QC): 6 Sit to Lying (QC): 6 Lying-Sitting on Side/Bed(QC): 6 Sit to Stand (QC): 6 Chair/Vog-st-Nfbhj Xfer(QC): 6 Car Transfer (QC): 6 Does the Patient Walk: Yes Walk 10 feet (QC): 6 Walk 10ft-Uneven Surface(QC): 6 Walk 50ft with 2 Turns (QC): 6 Walk 150 ft (QC): 6 Wheel 50 feet with 2 turns (QC: 9 1 Step (curb) (QC): 9 4 Steps (QC): 9 12 Steps (QC): 9 Picking up an Object (QC): 6 OT Private Tutor Goals Private Tutor Goals Time Frame: Jul 27, 2020 Eating (QC): 6 Oral Hygiene (QC): 6 Shower/Bathe Self (QC): 3 Upper Body Dressing (QC): 6 Lower Body Dressing (QC): 3 On/Off Footwear (QC): 6 Toileting Hygiene (QC): 3 Toilet/Commode Transfer (QC): 6 Additional Goals: 1-Demonstrate ADL Tasks, 2-Verbalize Understanding, 3- ImproveStrength/Dariana 1=Demonstrate adherence to instructed precautions during ADL tasks. 2=Patient will verbalize/demonstrate understanding of assistive devices/modifications for ADL. 3=Patient will improve strength/tolerance for activity to enable patient to perform ADL's. ANA SOLIS PT Jul 15, 2020 07:54
[2020-07-15] MEDS: metFORMIN 500 MG (GLUCOPHAGE) TAB PO SCH (08:32)
[2020-07-15] MEDS: PIPERACILLIN/TAZOBACTAM (BULK) 4.5 GM in NS (IVPB) 100 ML IV SCH (08:32)
[2020-07-15] MEDS: guaiFENesin (MUCINEX) 600 MG TAB PO SCH (08:32)
[2020-07-15] MEDS: LACTOBACILLUS ACIDOPHILUS (PROBIOTIC) CAPSULE PO SCH ×2 (08:32→13:09)
[2020-07-15] MEDS: VANCOMYCIN INJECTION 750 MG in NS (IVPB) 250 ML IV SCH (08:32)
[2020-07-15] MEDS: ENOXAPARIN 40 MG/0.4 ML (LOVENOX) SYR SC SCH (08:43)
--- NOTE | 2020-07-15 08:43 | Discharge Summary ---
Diagnosis/Chief Complaint Date of Admission Jul 13, 2020 at 09:31 Date of Discharge Discharge Date: Jul 15, 2020 Discharge Time: 10:00 Discharge Summary Discharge Physical Examination Allergies: Coded Allergies: No Known Drug Allergies (Unverified , 07/30/12) Vitals & I&Os Vital Signs Date Time Temp Pulse Resp B/P (MAP) Pulse Ox O2 Delivery O2 Flow Rate FiO2 07/15/20 06:41 92 High Flow N/C 5.00 07/15/20 05:04 36.6 72 22 145/74 (97) Hospital Course Pending Labs Laboratory Tests 07/15/20 04:50: Glucometer 144 Discharge Instructions to patient/family Please see electronic discharge instructions given to patient. Discharge Medications Reviewed and agree with Discharge Medication list on patient's Discharge Instruction sheet TAB FINCH MD Jul 15, 2020 08:43
[2020-07-15] MEDS ORDERED: ALPR.25T PO (09:26)
[2020-07-15] MEDS ORDERED: Guaifenesin/Codeine PO (09:26)
[2020-07-15] MEDS ORDERED: TMSL.4C PO (09:26)
[2020-07-15] MEDS ORDERED: GUAI600T43 PO (09:26)
[2020-07-15] MEDS ORDERED: IPRA3AMP31 INH (09:26)
[2020-07-15] MEDS ORDERED: AMOX-358 PO (09:26)
[2020-07-15] MEDS ORDERED: FLUT1AER4 IH (09:26)
--- NOTE | 2020-07-15 09:29 | Discharge Inst-Skilled Nursing ---
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 Skilled NF Admit to: [facility] Certification (SNF) I certify that SNF services are required to be given on an inpatient basis because of the above named patient's need for senior living care on a continuing basis for the conditions(s) for which he/she was receiving inpatient hospital services prior to his/her transfer to the [facility]. Care Home Facility Order: Nursing Services, Furniture Manager-Evaluate & Treat, Physical Therapy-Evaluate & Treat Oxygen Delivery Method: High Flow N/C (AT 4 LITERS) Oxygen Flow Rate L/min (Range): 4 Discharge Diet: Regular Diet Daily Activity as Tolerated: Yes Resuscitation Status: Do Not Resuscitate New & Resume Previous Orders Tab Mansfield Jul 15, 2020 09:27 TAB MANSFIELD MD Jul 15, 2020 09:29
[2020-07-15] MEDS ORDERED: LIDO1ADH74 TP (09:31)
[2020-07-15] MEDS ORDERED: LACT1CAP7 PO (09:31)
[2020-07-15] MEDS ORDERED: LIDOCAINE 4% (SALONPAS) PATCH TOP SCH (09:45)
--- NOTE | 2020-07-15 11:35 | Therapy Team Discharge Summary ---
Therapy Discharge Summary Discharge Recommendations Date of Discharge 07-15-20 Therapy D/C Recommendations: Assisted Living, Occupational Therapy Home Care Occupational Therapy Pt. seen for evaluation and one treatment for strengthening at this facility. Pt. at previous level, with exception of footwear and LE dressing. Pt. did not practice LE dressing, and required mod assist at [facility] with footwear. Pt. does usually require assistance with all other ADL skills at [facility]. Pt. will return this date with assistance. Recommend continued OT to work on strengthening and overall independence with daily skills. Decreased Activ Tolerance, Decreased UE Strength, Impaired Bed Mobility, Impaired Self-Care Skills PT Recreation Teacher Goals Alf Goals PT Recreation Teacher Goals Time Frame: Jul 31, 2020 Roll Left to Right (QC): 6 Sit to Lying (QC): 6 Lying-Sitting on Side/Bed(QC): 6 Sit to Stand (QC): 6 Chair/Xma-fz-Ytytt Xfer(QC): 6 Car Transfer (QC): 6 Does the Patient Walk: Yes Walk 10 feet (QC): 6 Walk 10ft-Uneven Surface(QC): 6 Walk 50ft with 2 Turns (QC): 6 Walk 150 ft (QC): 6 Wheel 50 feet with 2 turns (QC: 9 1 Step (curb) (QC): 9 4 Steps (QC): 9 12 Steps (QC): 9 Picking up an Object (QC): 6 OT Alf Goals Alf Goals Time Frame: Jul 27, 2020 Eating (QC): 6 (met) Oral Hygiene (QC): 6 (met) Shower/Bathe Self (QC): 3 (met) Upper Body Dressing (QC): 6 (met) Lower Body Dressing (QC): 3 (not met) On/Off Footwear (QC): 6 (not met) Toileting Hygiene (QC): 3 (met) Toilet/Commode Transfer (QC): 6 (met) Additional Goals: 1-Demonstrate ADL Tasks, 2-Verbalize Understanding, 3- ImproveStrength/Dariana 1=Demonstrate adherence to instructed precautions during ADL tasks. 2=Patient will verbalize/demonstrate understanding of assistive devices/modifications for ADL. 3=Patient will improve strength/tolerance for activity to enable patient to perform ADL's. SHOAIB KEE OT Jul 15, 2020 11:35
[2020-07-15 14:53] VITALS: BP 145/74
== END 2020-07-15 14:54 | DRG 194 ==
LOC: 4TH 09:31
PROVIDERS: ADMIT Family Medicine; ATTEND Family Medicine
DX: J18.9 Pneumonia, unspecified organism (principal); J44.0 Chronic obstructive pulmonary disease with (acute) lower respiratory infection; E11.9 Type 2 diabetes mellitus without complications; K59.00 Constipation, unspecified; D50.9 Iron deficiency anemia, unspecified; R53.1 Weakness; M19.91 Primary osteoarthritis, unspecified site; Z86.16 Personal history of COVID-19; Z66 Do not resuscitate; Z87.891 Personal history of nicotine dependence; Z79.84 Long term (current) use of oral hypoglycemic drugs; Z79.82 Long term (current) use of aspirin
CPT/HCPCS: 36415; 80202; 82947; 94640; 94760

== ENCOUNTER → 2020-08-17 | Outpatient (CLI) | payer MEDICARE, BC ==
[~2020-08-17] MED LIST changes: +ALPR.25T PO; +AMOX-358 PO; +FLUT1AER4 IH; +GUAI600T43 PO; +Guaifenesin/Codeine PO; +IPRA3AMP31 INH; +LACT1CAP7 PO; +LIDO1ADH74 TP; +TMSL.4C PO
[2020-08-17 18:45] LABS: BILIRUBIN,URINE NEGATIVE (NEGATIVE); CLARITY,URINE CLEAR; COLOR,URINE AMBER; GLUCOSE, URINE (UA) NEGATIVE (NEGATIVE); KETONES,URINE NEGATIVE (NEGATIVE); LEUKOCYTE ESTERASE ,URINE 1+ (NEGATIVE); NITRITE,URINE NEGATIVE (NEGATIVE); PH,URINE 5.5 (5-9); PROTEIN,URINE NEGATIVE (NEGATIVE)
[2020-08-17 18:48] LABS: HEMOGLOBIN 9.4 g/dL (13.3-17.7); WHITE BLOOD COUNT 6.9 10^3/uL (4.3-11.0)
[2020-08-17 18:49] LABS: MEAN PLATELET VOLUME 10.5 fL (9.0-12.2)
[2020-08-17 18:54] LABS: ALBUMIN 3.2 GM/DL (3.2-4.5)
[2020-08-17 18:55] LABS: CHLORIDE 105 MMOL/L (98-107); POTASSIUM 4.3 MMOL/L (3.6-5.0); SODIUM 137 MMOL/L (135-145)
[2020-08-17 18:56] LABS: CALCIUM 8.7 MG/DL (8.5-10.1)
[2020-08-17 18:57] LABS: GLUCOSE 190 MG/DL (70-105); TOTAL PROTEIN 6.4 GM/DL (6.4-8.2)
[2020-08-17 18:58] LABS: CARBON DIOXIDE 22 MMOL/L (21-32)
[2020-08-17 18:59] LABS: BILIRUBIN,TOTAL 0.5 MG/DL (0.1-1.0)
[2020-08-17 19:00] LABS: ALKALINE PHOSPHATASE 99 U/L (40-136)
[2020-08-17 19:01] LABS: CREATININE SERUM 0.72 MG/DL (0.60-1.30); GFR ESTIMATED > 60
[2020-08-17 19:02] LABS: BUN/CREATININE RATIO 31
[2020-08-17 19:03] LABS: ALANINE AMINOTRANSFERASE 11 U/L (0-55)
[2020-08-17 19:13] LABS: BACTERIA,URINE TRACE /HPF; WBC,URINE 25-50 /HPF
[2020-08-17 19:14] LABS: AMORPHOUS SEDIMENT,UR RARE AMOR URATES /LPF
== END ==
LOC: CVS 18:00
PROVIDERS: ATTEND Family Medicine
DX: Z01.89 Encounter for other specified special examinations (principal)
CPT/HCPCS: 80053; 81000; 85027; 87088; 87636